=== PATIENT | male | born 1945 | race Caucasian/White ===

== ENCOUNTER 2017-02-08 15:45 | Inpatient (IN) | payer MEDICARE, OTHER ==
[~2017-02-08] VITALS: Ht 188 cm; Wt 99.5 kg
[~2017-02-08 15:45] MED LIST: ASPI81TA3 PO; ATOR40TA68 PO; CLOP75TA27 PO; GABA300C16 PO; GABAPENTIN 400 MG CAP PO SCH; LEVO150T67 PO; LISI20TA11 PO; MECL12.574 PO; MTF1000T PO; NITR0.4T6 SL; OMEP20CA16 PO; TRAZ50TA18 PO
[2017-02-08] MEDS ORDERED: SOD CHLORIDE 0.9% 1,000 ML IV STA (16:30)
[2017-02-08] MEDS ORDERED: ENALAPRILAT 1.25 MG INJ IV ONE (16:30)
[2017-02-08 16:45] VITALS: TEMP 98.6
[2017-02-08] MEDS ORDERED: LANT3I SC (16:58)
[2017-02-08] MEDS ORDERED: METF500T4 PO (16:58)
[2017-02-08] MEDS ORDERED: AMLO-147 PO ×2 (17:01→21:27)
--- NOTE | 2017-02-08 17:13 | ERD ---
ER Documentation Chief Complaint Date/Time DATE: 02/08/17 TIME: 17:11 Chief Complaint "I GOT WEAK AND FELL EARLIER TODAY, LL BACK PAIN" -CP, -KO, - SOB HPI 72-year-old man brought in by EMS for complaints of low back pain and syncopal episode which occurred this morning. Son found him in his room on the floor, patient states he has been feeling weak for 4-5 days and son confirms this. He denies chest pain or shortness of breath, no abdominal pain, no fevers or chills , no vomiting or diarrhea. ROS All systems reviewed and are negative except as per history of present illness. Medications Home Meds Reported Medications Amlodipine Besylate* (Amlodipine Besylate*) 10 Mg Tablet, 10 MG PO DAILY, #30 TAB 02/08/17 Insulin Glargine* (Lantus*) 100 Unit/Ml Soln, 44 UNIT SC QHS, #1 VIAL 02/08/17 Metformin Hcl* (Metformin Hcl*) 500 Mg Tablet, 1000 MG PO WITH BREAKFAST DINNE, #60 TAB 02/08/17 Nitroglycerin* (Nitroglycerin* SL) 0.4 Mg Tab.subl, 0.4 MG SL Q5MIN Y for CHEST PAIN, BOTTLE 09/09/16 Omeprazole* (Omeprazole*) 20 Mg Capsule.dr, 40 MG PO AC BREAKFAST, #30 CAP 09/09/16 Levothyroxine Sodium* (Levothyroxine Sodium*) 150 Mcg Tablet, 150 MCG PO BEFORE BREAKFAST, #30 TAB 09/09/16 Gabapentin* (Gabapentin*) 300 Mg Capsule, 600 MG PO TID, #270 CAP 09/09/16 Clopidogrel Bisulfate (Clopidogrel) 75 Mg Tablet, 75 MG PO DAILY, #30 TAB 09/09/16 Atorvastatin* (Atorvastatin*) 40 Mg Tablet, 40 MG PO QHS, #30 TAB 09/09/16 Aspirin* (Aspirin* Chew) 81 Mg Tab.chew, 81 MG PO DAILY, TAB.CHEW 09/09/16 Discontinued Reported Medications Trazodone Hcl* (Trazodone Hcl*) 50 Mg Tablet, 50 MG PO QHS, #30 TAB 09/09/16 Metformin* (Glucophage*) 1,000 Mg Tablet, 1000 MG PO BID, #60 TAB 09/09/16 Lisinopril* (Lisinopril*) 20 Mg Tablet, 20 MG PO DAILY, #30 TAB 09/09/16 Discontinued Scripts Meclizine Hcl* (Antivert*) 12.5 Mg Tab, 25 MG PO Q6H Y for DIZZINESS, #20 TAB Prov:KT LOPES MD 09/09/16 Allergies Allergies: Coded Allergies: Sulfa (Sulfonamide Antibiotics) (Verified Allergy, Unknown, 02/08/17) PMhx/Soc Coronary artery disease, hypertension, diabetes mellitus, laminectomy, hypothyroidism, BPH History of Surgery: Yes (R TKR, Bilateral foot sx, back sx) Anesthesia Reaction: No Hx Neurological Disorder: No Hx Respiratory Disorders: No Hx Cardiac Disorders: Yes (HTN, HDL, STENT PLACEMENT, UT ) Hx Psychiatric Problems: No Hx Miscellaneous Medical Probl: Yes (DM) Hx Alcohol Use: No Hx Substance Use: No Hx Tobacco Use: No Smoking Status: Never smoker FmHx Family History: No diabetes Physical Exam Vitals Vital Signs Date Time Temp Pulse Resp B/P Pulse Ox O2 Delivery O2 Flow Rate FiO2 02/08/17 19:05 84 16 164/94 98 Room Air 02/08/17 17:06 Nasal Cannula 02/08/17 16:45 98.6 103 20 163/95 95 Room Air 02/08/17 15:55 98.4 100 18 112/60 96 Physical Exam GENERAL: Well-developed, appears dehydrated, afebrile HEENT: Dry mucous membranes, pink conjunctiva, no cervical spine tenderness or step-off deformities, no goiter, no jaundice or icterus, extraocular movements intact without pain. No submandibular induration, and no pharyngeal erythema NEURO: Alert and oriented 2, appears confused, pupils equal round reactive to light, no focal deficits or facial asymmetry. CARDIAC: Tachycardic and regular, no murmurs rubs or gallops LUNGS: Clear bilaterally no wheezing crackles or stridor ABDOMEN: Soft nontender, no guarding, no rigidity, no rebound, no psoas sign no obturator sign. Normoactive bowel sounds SKIN: Warm and dry to touch, no abrasions, contusions, or hematomas, no lacerations, no ecchymosis, no target lesions, and without ulcers EXTREMITIES: No clubbing cyanosis or edema, calves are bilaterally symmetrical, no Homans sign, no popliteal cord sign. Distal pulses equal and bilateral PSYCH: Normal affect without agitation or irritability Result Diagram: 02/08/17 1658 02/08/17 1658 Results 24 hrs Laboratory Tests Test 02/08/17 16:58 02/08/17 18:39 White Blood Count 15.310^3/ul Red Blood Count 4.3810^6/ul Hemoglobin 13.1g/dl Hematocrit 39.6% Mean Corpuscular Volume 90.4fl Mean Corpuscular Hemoglobin 29.9pg Mean Corpuscular Hemoglobin Concent 33.1g/dl Red Cell Distribution Width 13.2% Platelet Count 61158^3/UL Mean Platelet Volume 10.6fl Neutrophils % 76.5% Lymphocytes % 12.9% Monocytes % 9.4% Eosinophils % 0.3% Basophils % 0.3% Nucleated Red Blood Cells % 0.0/100WBC Neutrophils # 11.710^3/ul Lymphocytes # 2.010^3/ul Monocytes # 1.410^3/ul Eosinophils # 0.010^3/ul Basophils # 0.010^3/ul Nucleated Red Blood Cells # 0.010^3/ul Sodium Level 135mmol/L Potassium Level 4.3mmol/L Chloride Level 98mmol/L Carbon Dioxide Level 23mmol/L Anion Gap 18 Blood Urea Nitrogen 12mg/dl Creatinine 0.86mg/dl Glucose Level 189mg/dl Calcium Level 9.3mg/dl Total Bilirubin 0.4mg/dl Direct Bilirubin 0.00mg/dl Indirect Bilirubin 0.4mg/dl Aspartate Amino Transf (AST/SGOT) 61IU/L Alanine Aminotransferase (ALT/SGPT) 77IU/L Alkaline Phosphatase 47IU/L Troponin I 0.036ng/ml Total Protein 7.0g/dl Albumin 4.1g/dl Globulin 2.90g/dl Albumin/Globulin Ratio 1.41 Lipase 19U/L Urine Color LT. YELLOW Urine Clarity CLEAR Urine pH 6.5 Urine Specific [place] <=1.005 Urine Ketones NEGATIVE Urine Nitrite NEGATIVE Urine Bilirubin NEGATIVE Urine Urobilinogen 0.2 E.U./dL Urine Leukocyte Esterase NEGATIVE Urine Hemoglobin NEGATIVE Urine Glucose NEGATIVE% Urine Total Protein NEGATIVE Current Medications Medications (Trade) Dose Ordered Sig/Ozzie Route PRN Reason Start Time Stop Time Status Last Admin Dose Admin Enalaprilat 1.25 mg 1.25 mg ONCE ONCE IV 02/08/17 16:30 02/08/17 16:31 DC 02/08/17 16:55 Sodium Chloride 1,000 ml @ 1,000 mls/hr Q1H STAT IV 02/08/17 16:30 02/08/17 17:29 DC 02/08/17 16:55 Sodium Chloride (NS) 1,000 ml @ 1,000 mls/hr Q1H ONCE IV 02/08/17 19:00 02/08/17 19:59 02/08/17 19:11 Procedures/MDM IV line was established patient was placed on machine stripper rhythm strip revealed a sinus tachycardia at 120 bpm with upright P and T waves. Patient was afebrile. EKG performed, read by me revealed a sinus tachycardia at 116 bpm, normal axis, narrow QRS complex, no concerning ST elevations or depressions, there are poor R -wave progressions in precordial leads consistent with previous UT. For dehydration I administered 2 L normal saline intravenously and patient was hypertensive so administered enalapril 1.25 mg IV with good response. X-ray Pelvis 1V Interpreted by me: Bones: No fracture Joints: No dislocation Foreign body: None Chest X-ray 1V Interpreted by me: Soft Tissue: No acute abnormalities Bones: No acute abnormalities Mediastinum/Cardiac Silhouette/Lungs: No acute abnormalities CT scan of the brain revealed white matter disease, no acute bleed mass or shift. CBC reveals a leukocytosis of 15, electrolytes were unremarkable, liver function tests are normal, troponin was negative. Urine analysis is negative for infection. Patient admitted under Dr. Still to telemetry setting for continued medical management and possible cardiology consultation. Departure Diagnosis: Primary Impression: Dehydration Additional Impressions: Dizziness Syncope Syncope type: unspecified Qualified Code: R55 - Syncope, unspecified syncope type Condition: JIMMY Iverson MD February 08, 2017 17:13
[2017-02-08 17:34] LABS: ADD SCAN DIFF NO
[2017-02-08 17:36] LABS: BASOPHILS % 0.3 % (0.0-2.0); EOSINOPHILS % 0.3 % (0.0-7.0); HEMATOCRIT 39.6 % (42.0-52.0); HEMOGLOBIN 13.1 g/dl (14.0-18.0); LYMPHOCYTES % 12.9 % (15.0-51.0); MEAN CORPUSCULAR HEMOGLOBIN 29.9 pg (29.0-33.0); MEAN CORPUSCULAR HGB CONC 33.1 g/dl (32.0-37.0); MEAN CORPUSCULAR VOLUME 90.4 fl (82.0-101.0); MEAN PLATELET VOLUME 10.6 fl (7.4-10.4); MONOCYTE # 1.4 10^3/ul (0.3-0.9); MONOCYTES % 9.4 % (0.0-11.0); NEUTROPHIL # 11.7 10^3/ul (1.6-7.5); NEUTROPHILS % 76.5 % (39.0-77.0); PLATELET COUNT 265 10^3/UL (140-415); RED BLOOD COUNT 4.38 10^6/ul (4.70-6.10); RED CELL DISTRIBUTION WIDTH 13.2 % (11.5-14.5); WHITE BLOOD COUNT 15.3 10^3/ul (4.8-10.8)
[2017-02-08 17:51] LABS: ALBUMIN 4.1 g/dl (3.3-4.9)
--- NOTE | 2017-02-08 17:51 | RADRPT ---
PROCEDURE: XR Chest. CLINICAL INDICATION: Chest pain TECHNIQUE: AP view of the chest was performed. COMPARISON: September 09, 2016 FINDINGS: The cardiomediastinal silhouette is within normal limits. The lungs are clear. No signs of pleural f luid or pneumothorax are seen. The osseous structures and soft tissues are unremarkable. IMPRESSION: No evidence for active cardiopulmonary disease. No interval change. RPTAT: QQ .Amalia Williamson MD, MD Date Time Electronically viewed and signed by .Amalia Williamson MD, on 02/08/2017 17:51 .F/
[2017-02-08 17:52] LABS: POTASSIUM 4.3 mmol/L (3.5-5.1)
[2017-02-08 17:54] LABS: ALBUMIN/GLOBULIN RATIO 1.41; BILIRUBIN,INDIRECT 0.4 mg/dl (0-1.1); BILIRUBIN,TOTAL 0.4 mg/dl (0.2-1.3); CALCIUM 9.3 mg/dl (8.4-10.2); CREATININE 0.86 mg/dl (0.61-1.24)
--- NOTE | 2017-02-08 17:59 | RADRPT ---
PROCEDURE: CT Brain without contrast. CLINICAL INDICATION: r/o bleed TECHNIQUE: A CT of the brain was performed on a multidetector CT scanner utilizing axial imaging f rom the skull base through the vertex without IV contrast. Multiplanar reformatted images were made . Images were reviewed on a PACS workstation. The CTDIvol is 44 mGy and the DLP is 720 mGycm. COMPARISON: Head CT November 24, 2015 FINDINGS: There is moderate age appropriate diffuse cerebral volume loss with sulcal and ventricular dilatatio n. No discrete extra-axial fluid collection or masses present. The ventricles are in the midline a nd of normal contour and configuration. There is periventricular white matter disease in both cereb ral hemispheres. No associated mass effect is present. There is no intracranial hemorrhage. There is normal aeration of the visualized paranasal sinuses. IMPRESSION: Atrophy. White matter disease compatible with chronic small vessel ischemia. No intracranial hemor rhage or mass. .Kem Dueñas MD, MD Date Time Electronically viewed and signed by .Kem Dueñas MD, on 02/08/2017 17:58 .A/
[2017-02-08 18:05] LABS: TROPONIN-I 0.036 ng/ml (0.00-0.12)
--- NOTE | 2017-02-08 18:18 | RADRPT ---
PROCEDURE: X-ray pelvis CLINICAL INDICATION: Fall TECHNIQUE: Single AP view of the pelvis COMPARISON: None FINDINGS: No acute fracture or dislocation. Soft tissues unremarkable. IMPRESSION: No acute fracture. RPTAT: [facility] Physician Arie Date Time Electronically viewed and signed by Enmanuel [place] Physician on 02/08/2017 18:17 RS/
[2017-02-08] MEDS ORDERED: SOD CHLORIDE 0.9% 1,000 ML IV ONE (19:00)
[2017-02-08 19:17] LABS: ADD UMIC NO; URINE BILIRUBIN (Dip) NEGATIVE (NEGATIVE); URINE BLOOD (Dip) NEGATIVE (NEGATIVE); URINE COLOR LT. YELLOW (YELLOW); URINE GLUCOSE (Dip) NEGATIVE (NEGATIVE); URINE KETONES (Dip) NEGATIVE (NEGATIVE); URINE LEUKOCYTE ESTERASE (Dip) NEGATIVE (NEGATIVE); URINE NITRITE (Dip) NEGATIVE (NEGATIVE); URINE TOTAL PROTEIN (Dip) NEGATIVE (NEGATIVE); URINE UROBILINOGEN (Dip) 0.2 E.U./dL (0.1-1.0)
[2017-02-08 20:38] VITALS: Ht 188 cm; Wt 99.5 kg
[2017-02-08 20:45] VITALS: PULSE 74
[2017-02-08] MEDS ORDERED: OMEP20CA16 PO (21:27)
[2017-02-08] MEDS ORDERED: CLOP75TA27 PO (21:27)
[2017-02-08] MEDS: GABAPENTIN 300 MG CAP PO SCH (22:52)
[2017-02-08] MEDS: SOD CHLORIDE 0.9% 1,000 ML IV SCH (22:52)
[2017-02-08] MEDS ORDERED: DEXTROSE 50% 50 ML SYRINGE IV PRN ×2 (23:00)
[2017-02-08] MEDS ORDERED: GLUCOSE GEL 15 GRAM TUBE PO PRN ×2 (23:00)
[2017-02-08] MEDS ORDERED: GLUCOSE GEL 15 GRAM TUBE BUCCAL PRN (23:00)
[2017-02-08] MEDS ORDERED: GLUCAGON 1 MG INJ IM PRN (23:00)
[2017-02-08 23:05] VITALS: BP 163/85; PULSE 85; RESP 16
--- NOTE | 2017-02-08 23:06 | HP ---
DATE OF ADMISSION: 02/08/2017 REASON FOR ADMISSION: 1. Syncope with history of syncopal episodes and dizziness. 2. Mechanical fall with left hip pain. 3. Dehydration. 4. Vertigo/chronic condition. 5. Diabetes. 6. Coronary artery disease, status post stenting. 7. Generalized weakness. CHIEF COMPLAINT: Status post mechanical fall in the shower. HISTORY OF PRESENT ILLNESS: The patient is a very pleasant 72-year-old gentleman with history of hypertension: hyperlipidemia; diabetes; coronary artery disease, status post stenting; vertigo, presents to the ED with complaints of mechanical fall and left hip pain. The patient stated that he has been having poor p.o. intake over the past 48 hours, started with dinner 24 hours prior. The patient felt anorexic, did not want to eat. The patient went to sleep, did not feel hungry. For the daytime, the patient only had 1 egg with a salad. The patient then took a shower, felt lightheaded and started to get dizzy and fell and hit his bottom on the left side. The patient was then brought to the ED for further evaluation and treatment. The patient was seen and evaluated in ED. Orthostatics were not done. The patient was given IV fluid 1 L. The patient was admitted to the hospital for syncopal episode. Radiologic examinations in the ED demonstrate no evidence of fracture by pelvis x-ray, by chest x-ray, and brain CT was negative. ALLERGIES: SULFA CAUSES A RASH. CURRENT MEDICATIONS: 1. Amlodipine 10 mg p.o. daily. 2. Insulin subcutaneously 44 units Lantus at bedtime. 3. Metformin 1000 mg p.o. b.i.d. 4. Nitroglycerin 0.4 mg sublingual every 5 minutes as needed for chest pain. 5. Omeprazole 20 mg p.o. daily. 6. Levothyroxine 150 mcg p.o. daily. 7. Gabapentin 300 mg p.o. t.i.d. 8. Plavix 75 mg p.o. daily. 9. Atorvastatin 40 mg p.o. at bedtime. 10. Aspirin 81 mg p.o. daily. 11. Neurontin 600 mg p.o. t.i.d. PAST MEDICAL HISTORY: Significant for: 1. Diabetes, insulin dependent. 2. Hypertension. 3. Coronary artery disease, status post stenting. 4. Hyperlipidemia. 5. History of vertigo. 6. Hypothyroidism. PAST HOSPITALIZATIONS: Multiple hospitalizations for: 1. Syncope. 2. Vertigo. 3. Chest pain with coronary artery disease. PAST SURGICAL HISTORY: 1. Coronary artery disease, status post stenting. 2. 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 3. History of hemorrhoids and anal fissures. 4. Surgery of the thyroglossal duct. 5. Lesion removed from the right foot. 6. Left eye pterygium removed. 7. Left foot surgery. 8. Right total knee arthroplasty with repeat surgery 1 year later. 9. Low back pain, now with surgery. FAMILY HISTORY: Reviewed, noncontributory. SOCIAL HISTORY: The patient lives with his son. Denies any current drugs, alcohol, tobacco. Pretty much independent without using cane or walker. PHYSICAL EXAMINATION ON THE HOSPITAL FLOOR: VITAL SIGNS: Temperature is 98.6, blood pressure is 163/93, pulse of 103, saturating 95% on room air, the patient's respiratory rate 20. GENERAL: The patient was awake, alert and oriented x4. HEENT: Head normocephalic, atraumatic. Sclerae nonicteric. Oropharynx clear. Dry mucous membranes. NECK: No lymphadenopathy, no thyromegaly. CARDIOVASCULAR: Regular rate and rhythm. Normal S1, S2. LUNGS: Clear to auscultation bilaterally. ABDOMEN: Soft, nontender, nondistended. Normoactive bowel sounds. No right upper quadrant, no right lower quadrant pain. EXTREMITIES: Right knee has incision that is clean, dry and intact and well healed. Bilateral lower extremities, no evidence of edema, clubbing or cyanosis. Left gluteal hip pain, has tenderness to palpation. CURRENT X-RAYS: 1. Pelvis x-ray on 02/08/2017 shows no acute fracture. 2. A 02/08/2017 chest x-ray shows no acute cardiopulmonary disease. 3. Brain CT on 02/08/2017 shows no acute intracranial abnormalities. EKG shows sinus tachycardia with LVH voltage criteria. There is no evidence of ST segment abnormalities. There is 1 lead with T-wave inversions in lead III. Otherwise, there are old Q's in the anterior leads. ASSESSMENT AND PLAN: The patient is a 72-year-old gentleman with a significant past medical history for syncopal episodes; dizziness; diabetes, insulin dependent; hypertension; hyperlipidemia; obesity and coronary artery disease, status post stenting, presents from home with episode of mechanical fall in the shower with trauma to the left gluteal area, being admitted for another syncopal episode. 1. Syncope, likely associated with a prerenal etiology of dehydration. The patient did have an echocardiogram in 10/2016 that shows normal ejection fraction. The patient's troponin is negative. EKG shows old Q-waves. The patient did not have any history of chest pain. The patient did have carotid ultrasounds done at the time of 10/2016, did not show any significant lesions. MRI at that time did not show any acute abnormalities. The patient will be monitored. Will check for orthostatic hypotension, continue telemetry monitoring. 2. Mechanical fall with left hip pain. The patient will be provided with pain medication, rehab, PT/OT evaluation. Consider getting CT scan of the pelvis if the patient complains of severe pain. X-ray of the pelvis did not show any evidence of dislocation or fractures noted. 3. Dehydration. Continue IV fluid hydration. 4. Vertigo. The patient states that he has a chronic condition of vertigo. No medications actually help him with the symptoms. The patient is able to cope with these symptoms. 5. Diabetes. Continue insulin sliding scale. Provide cardiac, diabetic diet. 6. Coronary artery disease, status post stenting. Nitroglycerin as needed, coronary artery medications. 7. Generalized weakness secondary to dehydration. Provide PT/OT evaluation. 8. Code status. The patient is FULL CODE. Dictated By: SHARI MO/CAROL Conf#: [id number] DID#: [id number] GURJIT
[2017-02-08 23:59] VITALS: BP 180/78; RESP 16
[2017-02-09] VITALS (12 sets, daily range): BP systolic 143–192; BP diastolic 73–97; PULSE 67–114; RESP 16–20
[2017-02-09] MEDS: hydrALAzine 20 MG INJ IV PRN ×3 (01:02→20:21)
[2017-02-09] MEDS: ACCU-CHEK XX SCH (01:07)
[2017-02-09] MEDS ORDERED: ACCU-CHEK XX SCH (02:00)
[2017-02-09 06:41] LABS: ADD SCAN DIFF NO
[2017-02-09 06:42] LABS: BASOPHILS % 0.4 % (0.0-2.0); EOSINOPHILS # 0.2 10^3/ul (0.0-0.5); EOSINOPHILS % 1.5 % (0.0-7.0); HEMATOCRIT 38.3 % (42.0-52.0); HEMOGLOBIN 12.8 g/dl (14.0-18.0); LYMPHOCYTES # 2.2 10^3/ul (0.8-2.9); LYMPHOCYTES % 20.9 % (15.0-51.0); MEAN CORPUSCULAR HEMOGLOBIN 30.2 pg (29.0-33.0); MEAN CORPUSCULAR HGB CONC 33.4 g/dl (32.0-37.0); MEAN CORPUSCULAR VOLUME 90.3 fl (82.0-101.0); MEAN PLATELET VOLUME 10.7 fl (7.4-10.4); MONOCYTE # 1.2 10^3/ul (0.3-0.9); MONOCYTES % 11.3 % (0.0-11.0); NEUTROPHIL # 6.9 10^3/ul (1.6-7.5); NEUTROPHILS % 65.4 % (39.0-77.0); PLATELET COUNT 250 10^3/UL (140-415); RED BLOOD COUNT 4.24 10^6/ul (4.70-6.10); RED CELL DISTRIBUTION WIDTH 13.3 % (11.5-14.5); WHITE BLOOD COUNT 10.5 10^3/ul (4.8-10.8)
[2017-02-09 07:04] LABS: ALBUMIN 3.9 g/dl (3.3-4.9); ALBUMIN/GLOBULIN RATIO 1.39; BILIRUBIN,INDIRECT 0.3 mg/dl (0-1.1); BILIRUBIN,TOTAL 0.3 mg/dl (0.2-1.3); CALCIUM 9.4 mg/dl (8.4-10.2); CREATININE 0.81 mg/dl (0.61-1.24); MAGNESIUM 1.6 mg/dl (1.7-2.5); PHOSPHORUS 3.7 mg/dl (2.5-4.9); POTASSIUM 4.1 mmol/L (3.5-5.1); TOTAL PROTEIN 6.7 g/dl (6.1-8.1)
[2017-02-09] MEDS: PANTOPRAZOLE (EC) 40 MG TAB PO SCH (07:05)
[2017-02-09] MEDS: LEVOTHYROXINE 150 MCG TAB PO SCH (07:05)
[2017-02-09] MEDS: GABAPENTIN 300 MG CAP PO SCH ×5 (07:12→20:36)
[2017-02-09] MEDS: metFORMIN 500 MG TAB PO SCH ×3 (08:05→17:26)
[2017-02-09] MEDS: INSULIN ASPART [NOVOLOG] 3 ML PEN SC SCH ×4 (08:08→20:25)
[2017-02-09] MEDS: CLOPIDOGREL 75 MG TAB PO SCH (08:23)
[2017-02-09] MEDS: ASPIRIN (EC) 81 MG TAB PO SCH (08:23)
[2017-02-09] MEDS: AMLODIPINE 10 MG TAB PO SCH (08:25)
[2017-02-09] MEDS: ACETAMINOPHEN 325 MG TAB PO PRN ×2 (10:08→21:28)
--- NOTE | 2017-02-09 11:54 | CONS ---
Date/Time of Note Date/Time of Note DATE: 02/09/17 TIME: 11:34 Assessment/Plan Assessment/Plan Chief Complaint/Hosp Course 1. syncope , I suspect that his BP dropped when he had the syncopal episode .Continue IV fluids . PT and monitor his BP including orthostatics . 2. h/o postural hypotension 3. IDDM , will order his lantus insulin 4. CAD , s/p stent placement . 5. HTN Problems: Consultation Date/Type/Reason Admit Date/Time February 08, 2017 at 18:38 Initial Consult Date 24 HR Interval Summary Free Text/Dictation He is awake and alert . We reviewed his history of having a syncopal episode and having some dizziness when stood up to go to the bathroom this morning . Exam/Review of Systems Vital Signs Vitals Vital Signs Date Time Temp Pulse Resp B/P Pulse Ox O2 Delivery O2 Flow Rate FiO2 02/09/17 08:36 80 02/09/17 07:20 97.9 17 192/88 95 02/09/17 04:00 Room Air Intake and Output 02/08/17 02/08/17 02/09/17 15:00 23:00 07:00 Intake Total 1000 ml 300 ml Output Total 2300 ml Balance 1000 ml -2000 ml Exam Constitutional: alert, oriented, well developed Respiratory: clear to auscultation, normal air movement Cardiovascular: regular rate and rhythm Gastrointestinal: soft Musculoskeletal: nl extremities to inspection Results Result Diagram: 02/09/17 0551 02/09/17 0557 Results 24 hrs Laboratory Tests Test 02/08/17 16:58 02/08/17 18:39 02/09/17 01:06 02/09/17 05:51 White Blood Count 15.3 H 10.5 # Red Blood Count 4.38 L 4.24 L Hemoglobin 13.1 L 12.8 L Hematocrit 39.6 L 38.3 L Mean Corpuscular Volume 90.4 90.3 Mean Corpuscular Hemoglobin 29.9 30.2 Mean Corpuscular Hemoglobin Concent 33.1 33.4 Red Cell Distribution Width 13.2 13.3 Platelet Count 265 250 Mean Platelet Volume 10.6 #H 10.7 H Neutrophils % 76.5 65.4 Lymphocytes % 12.9 L 20.9 Monocytes % 9.4 11.3 H Eosinophils % 0.3 1.5 Basophils % 0.3 0.4 Nucleated Red Blood Cells % 0.0 0.0 Neutrophils # 11.7 H 6.9 Lymphocytes # 2.0 2.2 Monocytes # 1.4 H 1.2 H Eosinophils # 0.0 0.2 Basophils # 0.0 0.0 Nucleated Red Blood Cells # 0.0 0.0 Sodium Level 135 Potassium Level 4.3 Chloride Level 98 Carbon Dioxide Level 23 Anion Gap 18 H Blood Urea Nitrogen 12 Creatinine 0.86 Glucose Level 189 Calcium Level 9.3 Total Bilirubin 0.4 Direct Bilirubin 0.00 Indirect Bilirubin 0.4 Aspartate Amino Transf (AST/SGOT) 61 H Alanine Aminotransferase (ALT/SGPT) 77 H Alkaline Phosphatase 47 Troponin I 0.036 0.030 Total Protein 7.0 Albumin 4.1 Globulin 2.90 Albumin/Globulin Ratio 1.41 Lipase 19 L Urine Color LT. YELLOW Urine Clarity CLEAR Urine pH 6.5 Urine Specific [place] <=1.005 L Urine Ketones NEGATIVE Urine Nitrite NEGATIVE Urine Bilirubin NEGATIVE Urine Urobilinogen 0.2 E.U./dL Urine Leukocyte Esterase NEGATIVE Urine Hemoglobin NEGATIVE Urine Glucose NEGATIVE Urine Total Protein NEGATIVE Bedside Glucose 207 Test 02/09/17 05:57 02/09/17 07:55 02/09/17 11:31 Sodium Level 136 Potassium Level 4.1 Chloride Level 105 Carbon Dioxide Level 24 Anion Gap 11 # Blood Urea Nitrogen 12 Creatinine 0.81 Glucose Level 239 H Calcium Level 9.4 Phosphorus Level 3.7 Magnesium Level 1.6 L Total Bilirubin 0.3 Direct Bilirubin 0.00 Indirect Bilirubin 0.3 Aspartate Amino Transf (AST/SGOT) 50 H Alanine Aminotransferase (ALT/SGPT) 64 Alkaline Phosphatase 41 L B-Type Natriuretic Peptide 207 H Total Protein 6.7 Albumin 3.9 Globulin 2.80 Albumin/Globulin Ratio 1.39 Thyroid Stimulating Hormone (TSH) 1.590 Bedside Glucose 199 200 Medications Medications Current Medications Amlodipine Besylate (Norvasc) 10 mg DAILY PO Last administered on 02/09/17 08: 25; Admin Dose 10 MG; Start 02/09/17 at 09:00 Aspirin (Halfprin) 81 mg DAILY PO Last administered on 02/09/17 08:23; Admin Dose 81 MG; Start 02/09/17 at 09:00 Atorvastatin Calcium (Lipitor) 40 mg HS PO ; Start 02/09/17 at 21:00 Clopidogrel Bisulfate (plaVIX) 75 mg DAILY PO Last administered on 02/09/17 08 :23; Admin Dose 75 MG; Start 02/09/17 at 09:00 Insulin Glargine (Lantus) 44 unit DAILY@20 SC ; Start 02/09/17 at 20:00 Levothyroxine Sodium 150 mcg 150 mcg DAILY@06 PO Last administered on 07:05; Admin Dose 150 MCG; Start 02/09/17 at 06:00 Sodium Chloride (NS) 1,000 ml @ 75 mls/hr [id number] IV Last administered on 02/08 22:52; Admin Dose 75 MLS/HR; Start 02/08/17 at 22:30 Diagnostic Test (Pha) (Accu-Chek) 1 ea 02 XX Last administered on 02/09/17 01: 07; Admin Dose 1 EA; Start 02/09/17 at 02:00 Gabapentin (Neurontin) 900 mg TID PO Last administered on 02/09/17 07:12; Admin Dose 900 MG; Start 02/08/17 at 22:30 Miscellaneous Information 1 ea NOTE XX ; Start 02/08/17 at 23:00 Glucose (Glutose) 15 gm Q15M PRN PO DECREASED GLUCOSE; Start 02/08/17 at 23:00 Glucose (Glutose) 22.5 gm Q15M PRN PO DECREASED GLUCOSE; Start 02/08/17 at 23: 00 Dextrose (D50w Syringe) 25 ml Q15M PRN IV DECREASED GLUCOSE; Start 02/08/17 at 23:00 Dextrose (D50w Syringe) 50 ml Q15M PRN IV DECREASED GLUCOSE; Start 02/08/17 at 23:00 Glucagon (Glucagen) 1 mg Q15M PRN IM DECREASED GLUCOSE; Start 02/08/17 at 23:00 Glucose (Glutose) 15 gm Q15M PRN BUCCAL DECREASED GLUCOSE; Start 02/08/17 at 23 :00 Hydralazine HCl (Apresoline) 10 mg Q4H PRN IV Hypertension Last administered on 02/09/17 08:28; Admin Dose 10 MG; Start 02/09/17 at 01:00 Acetaminophen (Tylenol Tab) 650 mg Q6H PRN PO PAIN AND OR ELEVATED TEMP Last administered on 02/09/17 10:08; Admin Dose 650 MG; Start 02/09/17 at 10:00 WILMA GARIBAY MD February 09, 2017 11:49
[2017-02-09] MEDS ORDERED: NITROGLYCERIN (SL) 0.4 MG TAB SL PRN (12:00)
[2017-02-09] MEDS ORDERED: GLUCAGON 1 MG INJ IM PRN (12:30)
[2017-02-09] MEDS ORDERED: GLUCOSE GEL 15 GRAM TUBE PO PRN ×2 (12:30)
[2017-02-09] MEDS ORDERED: DEXTROSE 50% 50 ML SYRINGE IV PRN ×2 (12:30)
[2017-02-09] MEDS ORDERED: GLUCOSE GEL 15 GRAM TUBE BUCCAL PRN (12:30)
[2017-02-09] MEDS: SOD CHLORIDE 0.9% 1,000 ML IV SCH (15:32)
[2017-02-09] MEDS ORDERED: MAGNESIUM SULFATE 2 GM/50 ML 50 ML IVPB ONE (18:30)
[2017-02-09] MEDS: INSULIN GLARGINE [LANtus] 3 ML PEN SC SCH ×2 (20:19→20:36)
[2017-02-09] MEDS: ATORVASTATIN 40 MG TAB PO SCH ×2 (20:23→20:34)
[2017-02-10] VITALS (13 sets, daily range): BP systolic 126–178; BP diastolic 70–86; PULSE 68–98; RESP 18–20
[2017-02-10] MEDS: SOD CHLORIDE 0.9% 1,000 ML IV SCH ×2 (01:10→07:37)
[2017-02-10] MEDS: ACCU-CHEK XX SCH (02:00)
[2017-02-10] MEDS: LEVOTHYROXINE 150 MCG TAB PO SCH ×2 (06:40→06:44)
[2017-02-10] MEDS: PANTOPRAZOLE (EC) 40 MG TAB PO SCH ×2 (06:43→06:44)
[2017-02-10] MEDS: ACETAMINOPHEN 325 MG TAB PO PRN ×2 (06:53→17:26)
[2017-02-10] MEDS: GABAPENTIN 300 MG CAP PO SCH ×7 (07:35→20:39)
[2017-02-10] MEDS: metFORMIN 500 MG TAB PO SCH ×4 (08:00→18:05)
[2017-02-10] MEDS: AMLODIPINE 10 MG TAB PO SCH (08:06)
[2017-02-10] MEDS: ASPIRIN (EC) 81 MG TAB PO SCH (08:07)
[2017-02-10] MEDS: INSULIN ASPART [NOVOLOG] 3 ML PEN SC SCH ×4 (08:13→20:49)
[2017-02-10] MEDS ORDERED: ASPIRIN 81 MG TAB PO SCH (09:00)
[2017-02-10] MEDS: CLOPIDOGREL 75 MG TAB PO SCH (09:00)
[2017-02-10] MEDS ORDERED: AMLODIPINE 10 MG TAB PO SCH (09:00)
[2017-02-10] MEDS ORDERED: CLOPIDOGREL 75 MG TAB PO SCH (09:00)
--- NOTE | 2017-02-10 10:20 | PN ---
Date/Time of Note Date/Time of Note DATE: 02/10/17 TIME: 10:15 Assessment/Plan VTE Prophylaxis VTE Prophylaxis Intervention: ambulation Lines/Catheters IV C[facility]ter Type (from [facility] Peripheral IV Urinary Cath still in place: No Assessment/Plan Chief Complaint/Hosp Course 1. syncope , I suspect that his BP dropped when he had the syncopal episode . He does have a history of postural hypotension and I have seen him in my office when his blood pressure has been low and he was symptomatic.. Discontinued IV fluids . PT and monitor his BP including orthostatics . I will order a cardiology consultation and an echocardiogram today. 2. h/o postural hypotension 3. IDDM , will order his lantus insulin 4. CAD , s/p stent placement . 5. HTN Problems: Subjective 24 Hr Interval Summary Free Text/Dictation He has no new complaints . He was up walking with physical therapy. I do not see any orthostatic blood pressures on the chart. There was one blood pressure taken this morning when the patient was lying down. He denies any chest pain or shortness of breath. Constitutional: improved, no complaints Respiratory: no complaints Cardiovascular: no complaints Gastrointestinal: no complaints Genitourinary: no complaints Neurologic: dizziness Exam/Review of Systems Vital Signs Vitals Vital Signs Date Time Temp Pulse Resp B/P Pulse Ox O2 Delivery O2 Flow Rate FiO2 02/10/17 08:06 73 02/10/17 07:22 98.4 18 171/82 96 02/09/17 11:40 Room Air Intake and Output 02/09/17 02/09/17 02/10/17 15:00 23:00 07:00 Intake Total 1400 ml 550 ml Output Total 925 ml 1200 ml 1600 ml Balance -925 ml 200 ml -1050 ml Exam Constitutional: alert, oriented, well developed ENMT: nl external ears & nose, nl lips & teeth, nl nasal mucosa & septum Respiratory: clear to auscultation, normal air movement Cardiovascular: nl pulses, regular rate and rhythm Gastrointestinal: nl liver, spleen, non-tender, soft Musculoskeletal: nl extremities to inspection, nl gait and stance Results Result Diagram: 02/09/17 0551 02/09/17 0557 Results 24 hrs Laboratory Tests Test 02/09/17 11:31 02/09/17 17:21 02/09/17 20:17 02/10/17 05:30 Bedside Glucose 200 227 H 171 Magnesium Level 1.9 Test 02/10/17 07:46 Bedside Glucose 210 Medications Medications Current Medications Amlodipine Besylate (Norvasc) 10 mg DAILY PO Last administered on 02/10/17 08: 06; Admin Dose 10 MG; Start 02/09/17 at 09:00 Aspirin (Halfprin) 81 mg DAILY PO Last administered on 02/10/17 08:07; Admin Dose 81 MG; Start 02/09/17 at 09:00 Atorvastatin Calcium (Lipitor) 40 mg HS PO Last administered on 02/09/17 20:23 ; Admin Dose 40 MG; Start 02/09/17 at 21:00 Clopidogrel Bisulfate (plaVIX) 75 mg DAILY PO Last administered on 02/09/17 08 :23; Admin Dose 75 MG; Start 02/09/17 at 09:00 Insulin Glargine (Lantus) 44 unit DAILY@20 SC Last administered on 02/09/17 20 :19; Admin Dose 44 UNIT; Start 02/09/17 at 20:00 Levothyroxine Sodium 150 mcg 150 mcg DAILY@06 PO Last administered on 06:40; Admin Dose 150 MCG; Start 02/09/17 at 06:00 Sodium Chloride (NS) 1,000 ml @ 75 mls/hr [id number] IV Last administered on 02/10 07:37; Admin Dose 75 MLS/HR; Start 02/08/17 at 22:30 Diagnostic Test (Pha) (Accu-Chek) 1 ea 02 XX Last administered on 02/09/17 01: 07; Admin Dose 1 EA; Start 02/09/17 at 02:00 Gabapentin (Neurontin) 900 mg TID PO Last administered on 02/10/17 07:35; Admin Dose 900 MG; Start 02/08/17 at 22:30 Miscellaneous Information 1 ea NOTE XX ; Start 02/08/17 at 23:00 Glucose (Glutose) 15 gm Q15M PRN PO DECREASED GLUCOSE; Start 02/08/17 at 23:00 Glucose (Glutose) 22.5 gm Q15M PRN PO DECREASED GLUCOSE; Start 02/08/17 at 23: 00 Dextrose (D50w Syringe) 25 ml Q15M PRN IV DECREASED GLUCOSE; Start 02/08/17 at 23:00 Dextrose (D50w Syringe) 50 ml Q15M PRN IV DECREASED GLUCOSE; Start 02/08/17 at 23:00 Glucagon (Glucagen) 1 mg Q15M PRN IM DECREASED GLUCOSE; Start 02/08/17 at 23:00 Glucose (Glutose) 15 gm Q15M PRN BUCCAL DECREASED GLUCOSE; Start 02/08/17 at 23 :00 Hydralazine HCl (Apresoline) 10 mg Q4H PRN IV Hypertension Last administered on 02/09/17 20:21; Admin Dose 10 MG; Start 02/09/17 at 01:00 Acetaminophen (Tylenol Tab) 650 mg Q6H PRN PO PAIN AND OR ELEVATED TEMP Last administered on 02/10/17 06:53; Admin Dose 650 MG; Start 02/09/17 at 10:00 Amlodipine Besylate (Norvasc) 10 mg DAILY PO ; Start 02/10/17 at 09:00 Aspirin (Aspirin) 81 mg DAILY PO ; Start 02/10/17 at 09:00 Atorvastatin Calcium (Lipitor) 40 mg QHS PO ; Start 02/09/17 at 21:00 Clopidogrel Bisulfate (plaVIX) 75 mg DAILY PO Last administered on 02/10/17 08 :07; Admin Dose 75 MG; Start 02/10/17 at 09:00 Gabapentin (Neurontin) 900 mg TID PO Last administered on 02/09/17 13:07; Admin Dose 900 MG; Start 02/09/17 at 13:00 Insulin Glargine (Lantus) 44 unit QHS SC ; Start 02/09/17 at 21:00 Pantoprazole (Protonix Tab) 40 mg DAILY@06 PO Last administered on 02/10/17 06 :43; Admin Dose 40 MG; Start 02/10/17 at 06:00 Nitroglycerin (Nitroglycerin (Sl Tab) 0.4 Mg) 1 tab Q5M PRN SL ANGINA; Start at 12:00 Miscellaneous Information 1 ea NOTE XX ; Start 02/09/17 at 12:30 Glucose (Glutose) 15 gm Q15M PRN PO DECREASED GLUCOSE; Start 02/09/17 at 12:30 Glucose (Glutose) 22.5 gm Q15M PRN PO DECREASED GLUCOSE; Start 02/09/17 at 12: 30 Dextrose (D50w Syringe) 25 ml Q15M PRN IV DECREASED GLUCOSE; Start 02/09/17 at 12:30 Dextrose (D50w Syringe) 50 ml Q15M PRN IV DECREASED GLUCOSE; Start 02/09/17 at 12:30 Glucagon (Glucagen) 1 mg Q15M PRN IM DECREASED GLUCOSE; Start 02/09/17 at 12:30 Glucose (Glutose) 15 gm Q15M PRN BUCCAL DECREASED GLUCOSE; Start 02/09/17 at 12 :30 WILMA GARIBAY MD February 10, 2017 10:20
--- NOTE | 2017-02-10 15:13 | RADRPT ---
Echocardiogram Report Patient Name: CAROLINE WHITE Gender: Male Date: 1945 Study Date: 10-Feb-2017 Elementary Educator: [facility] Location: 5536 Ref. Physician: WILMA GARIBAY Quality: Adequate Procedures: Transthoracic echocardiogram with complete 2D, M-Mode, and doppler examination. Indications: Syncope. 2D/M Mode Doppler Measurement Value Normal Ranges Measurement Value Normal Ranges LVIDd 2D 4.0 3.5 - 5.6 cm AV Peak Michael 1.1 m/sec LVIDs 2D 2.4 2.1 - 4.1 cm AV Peak PG 4.8 mmHg LVPWd 2D 1.3 0.6 - 1.1 cm LVOT Peak Michael 1.0 m/sec IVSd 2D 1.3 0.6 - 1.1 cm LVOT Peak PG 3.9 mmHg AoR Diam 2D 2.9 2.0 - 3.7 cm MV E Peak Michael 0.7 m/sec EDV 2D 70.1 cm3 MV A Peak Michael 0.9 m/sec ESV 2D 14.7 cm3 MV E/A 0.8 LA Dimen 2D 4.4 2.3 - 4.0 cm MV Decel Time 269 msec MV Decel Geary 3 MV E/A 0.8 Findings Left Ventricle: Normal left ventricular systolic function. Normal left ventricular cavity size. Mild concentric left ventricular hypertrophy. Ejection fraction is visually estimated at 60 %. Tissue Doppler/Mitral Doppler indices are consistent with impaired relaxation (Stage I diastolic dysfunction). Right Ventricle: Normal right ventricular size. Normal right ventricular systolic function. Left Atrium: There is mild enlargement of left atrium. Right Atrium: The right atrium is normal in size. Mitral Valve: Normal appearance of the mitral valve. Trace mitral regurgitation. Aortic Valve: Normal appearance of the aortic valve. No significant aortic stenosis or insufficiency. Aortic sclerosis without stenosis. Trileaflet aortic valve. Tricuspid Valve: Normal appearance of the tricuspid valve. Unable to obtain RVSP due to minimal presence of tricuspid regurgitation. There is trace tricuspid regurgitation. Pulmonic Valve: Pulmonic valve not well visualized. There is trace pulmonic regurgitation. Pericardium: Normal pericardium with no significant pericardial effusion. Aorta: Normal aortic root. IVC: Normal size and normal respiratory collapse consistent with normal right atrial pressure. Conclusions Normal left ventricular systolic function. Normal left ventricular cavity size. Mild concentric left ventricular hypertrophy. Ejection fraction is visually estimated at 60 %. Tissue Doppler/Mitral Doppler indices are consistent with impaired relaxation (Stage I diastolic dysfunction). Normal right ventricular size. Normal right ventricular systolic function. Normal appearance of the aortic valve. No significant aortic stenosis or insufficiency. Aortic sclerosis without stenosis. Trileaflet aortic valve. Normal appearance of the tricuspid valve. Unable to obtain RVSP due to minimal presence of tricuspid regurgitation. There is trace tricuspid regurgitation. Normal size and normal respiratory collapse consistent with normal right atrial pressure. No Vegetation, masses, or thrombi seen. Electronically Signed By: Suhail Solis 10-Feb-2017 15:13:07 -0700 Patient Name: CAROLINE WHITE Study Date: 10-Feb-2017 [id number]
--- NOTE | 2017-02-10 15:23 | CONS ---
Date/Time of Note Date/Time of Note DATE: 02/10/17 TIME: 15:20 Assessment/Plan Assessment/Plan Chief Complaint/Hosp Course Impression: Syncope- no e/o of ischemia on lab testing/ekg. echo with normal function. no arrhythmia on tele. unlikely to be primary cardiac in etiology, pt with PCI 2015 with resvasc, stress 06/2016 without ischemia. no further cardiac testing needed. likely with vasovagal vs. low blood sugar vs. orthostasis in etiology. cont hydration and recheck orthostatics, if nl consider further bp med titration. if still symptomatic could also place compression stockings. 2. h/o postural hypotension - ? autonomic from dm2, however orthostatics negative today. as above 3. DM2 per primary 4. CAD as above . 5. HTN Problems: Consultation Date/Type/Reason Admit Date/Time February 08, 2017 at 18:38 Date of Consultation: February 10, 2017 Type of Consultation: Cardiology Reason for Consultation Syncope Referring Provider: WILMA GARIBAY MD Hx of Present Illness Mr. Hernandez is a 72 y.o. man with h/o dm2, htn, CAD s/p PCI of LCx 05/2016. Pt now presenting for syncope. Pt states was not feeling well, had decreased po intake on sat nigh. No n/v, chest pain, sob, pnd, orthopnea. Has chronic dizziness with change in position. Pt states went to take shower on thursday am and felt weak in the shower and was trying to hold himself up but fell onto his l hip in the bath tub. Pt states he was too weak to move and son heard him fall and helped him up into a chair. pt states he regained some strength after a few mins and ambulated with assist to bedroom. Pt states after he fell, also had n/v. Denies any chest pain/pressure, palpitaitons, dizziness, sob. He denies any seizure type activity or slurred speech/focal weakness. denies previous history of similar event. pt brought to [facility] ED, given IVF, cxr/pelvic xray was without acute abnl, ct head was negative for acute abnl. orthostatics supine to sitting were positive with sbp drop 20mmHg after admission, however repeat are negative. pt states he still feels weak. has been up ambulating with nurse without difficulty. ekg was reviewed, nsr, no acute abnl. echo with nl lv/rv fxn, valve fxn. tele without event. Constitutional: improved, no complaints Eyes: no complaints Respiratory: no complaints Cardiovascular: no complaints Gastrointestinal: decreased appetite Genitourinary: no complaints Musculoskeletal: no complaints Neurologic: syncope Past Medical History Benign essential hypertension (401.1) (I10) Coronary artery disease (414.00) (I25.10) s.p PCI of LCx with OSMAN in 2015, stress 06/2016 negative Diabetes mellitus (250.00) (E11.9) Hyperlipidemia (272.4) (E78.5) Shortness of breath (786.05) (R06.02) Past Surgical History Past Surgical Hx: other (PCI Lcx 2015) Family History Significant Family History: other (no cad) Social History Alcohol Use: none Smoking Status: Never smoker Drug Use: none Exam/Review of Systems Vital Signs Vitals Vital Signs Date Time Temp Pulse Resp B/P Pulse Ox O2 Delivery O2 Flow Rate FiO2 02/10/17 12:00 73 02/10/17 11:44 98.5 18 166/78 95 02/09/17 11:40 Room Air Intake and Output 02/09/17 02/09/17 02/10/17 15:00 23:00 07:00 Intake Total 1400 ml 550 ml Output Total 925 ml 1200 ml 1600 ml Balance -925 ml 200 ml -1050 ml Exam Constitutional: alert, oriented Psych: nl mood/affect, no complaints Head: normocephalic Eyes: EOMI, nl conjunctiva ENMT: nl external ears & nose, nl lips & teeth Neck: non-tender, supple, No jvd Respiratory: clear to auscultation, normal air movement Cardiovascular: nl pulses, regular rate and rhythm, No S3, No S4, No edema, No irregular rhythm, No jugular venous distention ( JVD), No systolic murmur Gastrointestinal: non-tender, soft Musculoskeletal: nl extremities to inspection, nl gait and stance 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, nl mental status, nl speech, nl strength Results Result Diagram: 02/09/17 0551 02/09/17 0557 Results 24 hrs Laboratory Tests Test 02/09/17 17:21 02/09/17 20:17 02/10/17 05:30 02/10/17 07:46 Bedside Glucose 227 H 171 210 Magnesium Level 1.9 Test 02/10/17 12:01 Bedside Glucose 215 Medications Medications Current Medications Amlodipine Besylate (Norvasc) 10 mg DAILY PO Last administered on 02/10/17 08: 06; Admin Dose 10 MG; Start 02/09/17 at 09:00 Aspirin (Halfprin) 81 mg DAILY PO Last administered on 02/10/17 08:07; Admin Dose 81 MG; Start 02/09/17 at 09:00 Atorvastatin Calcium (Lipitor) 40 mg HS PO Last administered on 02/09/17 20:23 ; Admin Dose 40 MG; Start 02/09/17 at 21:00 Clopidogrel Bisulfate (plaVIX) 75 mg DAILY PO Last administered on 02/09/17 08 :23; Admin Dose 75 MG; Start 02/09/17 at 09:00 Insulin Glargine (Lantus) 44 unit DAILY@20 SC Last administered on 02/09/17 20 :19; Admin Dose 44 UNIT; Start 02/09/17 at 20:00 Levothyroxine Sodium (Synthroid) 150 mcg DAILY@06 PO Last administered on 06:40; Admin Dose 150 MCG; Start 02/09/17 at 06:00 Diagnostic Test (Pha) (Accu-Chek) 1 ea 02 XX Last administered on 02/09/17 01: 07; Admin Dose 1 EA; Start 02/09/17 at 02:00 Gabapentin (Neurontin) 900 mg TID PO Last administered on 02/10/17 14:27; Admin Dose 900 MG; Start 02/08/17 at 22:30 Miscellaneous Information 1 ea NOTE XX ; Start 02/08/17 at 23:00 Glucose (Glutose) 15 gm Q15M PRN PO DECREASED GLUCOSE; Start 02/08/17 at 23:00 Glucose (Glutose) 22.5 gm Q15M PRN PO DECREASED GLUCOSE; Start 02/08/17 at 23: 00 Dextrose (D50w Syringe) 25 ml Q15M PRN IV DECREASED GLUCOSE; Start 02/08/17 at 23:00 Dextrose (D50w Syringe) 50 ml Q15M PRN IV DECREASED GLUCOSE; Start 02/08/17 at 23:00 Glucagon (Glucagen) 1 mg Q15M PRN IM DECREASED GLUCOSE; Start 02/08/17 at 23:00 Glucose (Glutose) 15 gm Q15M PRN BUCCAL DECREASED GLUCOSE; Start 02/08/17 at 23 :00 Hydralazine HCl (Apresoline) 10 mg Q4H PRN IV Hypertension Last administered on 02/09/17 20:21; Admin Dose 10 MG; Start 02/09/17 at 01:00 Acetaminophen (Tylenol Tab) 650 mg Q6H PRN PO PAIN AND OR ELEVATED TEMP Last administered on 02/10/17 06:53; Admin Dose 650 MG; Start 02/09/17 at 10:00 Amlodipine Besylate (Norvasc) 10 mg DAILY PO ; Start 02/10/17 at 09:00 Aspirin (Aspirin) 81 mg DAILY PO ; Start 02/10/17 at 09:00 Atorvastatin Calcium (Lipitor) 40 mg QHS PO ; Start 02/09/17 at 21:00 Clopidogrel Bisulfate (plaVIX) 75 mg DAILY PO Last administered on 02/10/17 08 :07; Admin Dose 75 MG; Start 02/10/17 at 09:00 Gabapentin (Neurontin) 900 mg TID PO Last administered on 02/09/17 13:07; Admin Dose 900 MG; Start 02/09/17 at 13:00 Insulin Glargine (Lantus) 44 unit QHS SC ; Start 02/09/17 at 21:00 Pantoprazole (Protonix Tab) 40 mg DAILY@06 PO Last administered on 02/10/17 06 :43; Admin Dose 40 MG; Start 02/10/17 at 06:00 Nitroglycerin (Nitroglycerin (Sl Tab) 0.4 Mg) 1 tab Q5M PRN SL ANGINA; Start at 12:00 Miscellaneous Information 1 ea NOTE XX ; Start 02/09/17 at 12:30 Glucose (Glutose) 15 gm Q15M PRN PO DECREASED GLUCOSE; Start 02/09/17 at 12:30 Glucose (Glutose) 22.5 gm Q15M PRN PO DECREASED GLUCOSE; Start 02/09/17 at 12: 30 Dextrose (D50w Syringe) 25 ml Q15M PRN IV DECREASED GLUCOSE; Start 02/09/17 at 12:30 Dextrose (D50w Syringe) 50 ml Q15M PRN IV DECREASED GLUCOSE; Start 02/09/17 at 12:30 Glucagon (Glucagen) 1 mg Q15M PRN IM DECREASED GLUCOSE; Start 02/09/17 at 12:30 Glucose (Glutose) 15 gm Q15M PRN BUCCAL DECREASED GLUCOSE; Start 02/09/17 at 12 :30 Procedures Procedures cxr images reviewed, no acute abnl ekg reviewed per hpi BARBRA FREGOSO February 10, 2017 15:23
[2017-02-10] MEDS: hydrALAzine 20 MG INJ IV PRN (15:44)
[2017-02-10] MEDS: ATORVASTATIN 40 MG TAB PO SCH ×2 (20:38→20:39)
[2017-02-10] MEDS: INSULIN GLARGINE [LANtus] 3 ML PEN SC SCH ×2 (20:49→20:50)
[2017-02-11] VITALS (8 sets, daily range): BP systolic 145–157; BP diastolic 70–89; PULSE 65–106; RESP 16–19
[2017-02-11] MEDS: ACCU-CHEK XX SCH (02:00)
[2017-02-11] MEDS: LEVOTHYROXINE 150 MCG TAB PO SCH ×2 (06:04→06:07)
[2017-02-11] MEDS: PANTOPRAZOLE (EC) 40 MG TAB PO SCH ×2 (06:04→06:07)
[2017-02-11] MEDS: GABAPENTIN 300 MG CAP PO SCH ×3 (06:05→13:28)
[2017-02-11] MEDS: metFORMIN 500 MG TAB PO SCH (08:54)
[2017-02-11] MEDS: ASPIRIN (EC) 81 MG TAB PO SCH (08:54)
[2017-02-11] MEDS: CLOPIDOGREL 75 MG TAB PO SCH (08:55)
[2017-02-11] MEDS: AMLODIPINE 10 MG TAB PO SCH (08:55)
[2017-02-11] MEDS: INSULIN ASPART [NOVOLOG] 3 ML PEN SC SCH ×2 (09:00→12:09)
--- NOTE | 2017-02-11 11:30 | CONS ---
Date/Time of Note Date/Time of Note DATE: 02/11/17 TIME: 11:27 Assessment/Plan Assessment/Plan Chief Complaint/Hosp Course Impression: Syncope- no e/o of ischemia on lab testing/ekg. echo with normal function. no arrhythmia on tele. unlikely to be primary cardiac in etiology, pt with PCI 2015 with resvasc, stress 06/2016 without ischemia. no further cardiac testing needed. likely with vasovagal vs. low blood sugar now resolved. 2. h/o postural hypotension - repeat orthostatics negative, no further eval needed 3. DM2 per primary 4. CAD on asa/plavix given pci 05/2016. on statin 5. HTN- improved 140s-150s, improved. can titrate medications as needed as outpt Problems: Consultation Date/Type/Reason Admit Date/Time February 09, 2017 at 11:34 Initial Consult Date 02/10/17 Type of Consultation: Cardiology Referring Provider: WILMA GARIBAY MD 24 HR Interval Summary Free Text/Dictation no acute events. orthostatics negative this am, pt up walking around, denies dizziness. did have mild dizziness with standing he states lasted a few seconds , similar to chronic symptoms. no cp/sob. no palpitations. no presyncope. tele reviewed, nsr no events. Detailed Summary Eyes: no complaints ENT: no complaints Respiratory: no complaints Cardiovascular: no complaints Gastrointestinal: no complaints Exam/Review of Systems Vital Signs Vitals Vital Signs Date Time Temp Pulse Resp B/P Pulse Ox O2 Delivery O2 Flow Rate FiO2 02/11/17 08:03 65 02/11/17 07:11 97.9 16 145/70 96 02/09/17 11:40 Room Air Intake and Output 02/10/17 02/10/17 02/11/17 15:00 23:00 07:00 Intake Total 1000 ml 650 ml Output Total 1950 ml 1400 ml Balance -950 ml -750 ml Exam Constitutional: alert, oriented Psych: nl mood/affect, no complaints Head: normocephalic Eyes: EOMI, nl conjunctiva ENMT: nl external ears & nose, nl lips & teeth Neck: non-tender, supple, No jvd Respiratory: clear to auscultation, normal air movement Cardiovascular: nl pulses, regular rate and rhythm, No S3, No S4, No edema, No irregular rhythm, No jugular venous distention ( JVD), No systolic murmur Gastrointestinal: non-tender, soft Musculoskeletal: nl extremities to inspection, nl gait and stance Neurological: 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 intact, nl mental status, nl speech, nl strength Results Result Diagram: 02/09/17 0551 02/09/17 0557 Results 24 hrs Laboratory Tests Test 02/10/17 12:01 02/10/17 17:23 02/10/17 20:36 02/11/17 08:16 Bedside Glucose 215 269 H 191 163 Medications Medications Current Medications Amlodipine Besylate (Norvasc) 10 mg DAILY PO Last administered on 02/11/17 08: 55; Admin Dose 10 MG; Start 02/09/17 at 09:00 Aspirin (Halfprin) 81 mg DAILY PO Last administered on 02/11/17 08:54; Admin Dose 81 MG; Start 02/09/17 at 09:00 Atorvastatin Calcium (Lipitor) 40 mg HS PO Last administered on 02/10/17 20:38 ; Admin Dose 40 MG; Start 02/09/17 at 21:00 Clopidogrel Bisulfate (plaVIX) 75 mg DAILY PO Last administered on 02/11/17 08 :55; Admin Dose 75 MG; Start 02/09/17 at 09:00 Insulin Glargine (Lantus) 44 unit DAILY@20 SC Last administered on 02/10/17 20 :49; Admin Dose 44 UNIT; Start 02/09/17 at 20:00 Levothyroxine Sodium (Synthroid) 150 mcg DAILY@06 PO Last administered on 06:04; Admin Dose 150 MCG; Start 02/09/17 at 06:00 Diagnostic Test (Pha) (Accu-Chek) 1 ea 02 XX Last administered on 02/09/17 01: 07; Admin Dose 1 EA; Start 02/09/17 at 02:00 Gabapentin (Neurontin) 900 mg TID PO Last administered on 02/11/17 06:05; Admin Dose 900 MG; Start 02/08/17 at 22:30 Miscellaneous Information 1 ea NOTE XX ; Start 02/08/17 at 23:00 Glucose (Glutose) 15 gm Q15M PRN PO DECREASED GLUCOSE; Start 02/08/17 at 23:00 Glucose (Glutose) 22.5 gm Q15M PRN PO DECREASED GLUCOSE; Start 02/08/17 at 23: 00 Dextrose (D50w Syringe) 25 ml Q15M PRN IV DECREASED GLUCOSE; Start 02/08/17 at 23:00 Dextrose (D50w Syringe) 50 ml Q15M PRN IV DECREASED GLUCOSE; Start 02/08/17 at 23:00 Glucagon (Glucagen) 1 mg Q15M PRN IM DECREASED GLUCOSE; Start 02/08/17 at 23:00 Glucose (Glutose) 15 gm Q15M PRN BUCCAL DECREASED GLUCOSE; Start 02/08/17 at 23 :00 Hydralazine HCl (Apresoline) 10 mg Q4H PRN IV Hypertension Last administered on 02/10/17 15:44; Admin Dose 10 MG; Start 02/09/17 at 01:00 Acetaminophen (Tylenol Tab) 650 mg Q6H PRN PO PAIN AND OR ELEVATED TEMP Last administered on 02/10/17 17:26; Admin Dose 650 MG; Start 02/09/17 at 10:00 Pantoprazole (Protonix Tab) 40 mg DAILY@06 PO Last administered on 02/11/17 06 :04; Admin Dose 40 MG; Start 02/10/17 at 06:00 Nitroglycerin (Nitroglycerin (Sl Tab) 0.4 Mg) 1 tab Q5M PRN SL ANGINA; Start at 12:00 Miscellaneous Information 1 ea NOTE XX ; Start 02/09/17 at 12:30 Glucose (Glutose) 15 gm Q15M PRN PO DECREASED GLUCOSE; Start 02/09/17 at 12:30 Glucose (Glutose) 22.5 gm Q15M PRN PO DECREASED GLUCOSE; Start 02/09/17 at 12: 30 Dextrose (D50w Syringe) 25 ml Q15M PRN IV DECREASED GLUCOSE; Start 02/09/17 at 12:30 Dextrose (D50w Syringe) 50 ml Q15M PRN IV DECREASED GLUCOSE; Start 02/09/17 at 12:30 Glucagon (Glucagen) 1 mg Q15M PRN IM DECREASED GLUCOSE; Start 02/09/17 at 12:30 Glucose (Glutose) 15 gm Q15M PRN BUCCAL DECREASED GLUCOSE; Start 02/09/17 at 12 :30 Procedures Procedures imaging reports reviewed BARBRA FREGOSO February 11, 2017 11:30
--- NOTE | 2017-02-11 13:49 | PDOCDIS ---
Discharge Instructions CONDITION Patient Condition: Good HOME CARE INSTRUCTIONS: Special Diet: CARB CONTROLLED ACTIVITY: Activity Restrictions: Slowly Increase Activity Rest between Activity Bathing Restrictions: Shower FOLLOW UP/APPOINTMENTS Appointments WILMA Diaz MD February 11, 2017 13:49
--- NOTE | 2017-02-11 14:25 | DS ---
DATE OF ADMISSION: 02/09/2017 DATE OF DISCHARGE: HISTORY OF PRESENT ILLNESS AND HOSPITAL COURSE: This 72-year-old man was admitted to the hospital a fter he had a syncopal episode at home. The patient said he was in his usual state of health and we nt to take a shower, and while in the shower, he passed out and struck his buttocks on the bathroom floor. The patient said that he then went out and had dinner and then decided to come to the emerge ncy room. The patient was admitted with a diagnosis of syncope. The patient did have a CAT scan of the brain which did not show any intracranial hemorrhage or mass. There was some white matter dise ase compatible with chronic small vessel ischemia. The patient does have a history of longstanding insulin-dependent diabetes mellitus, hypertension, peripheral neuropathy, coronary artery disease st atus post stent placement. The patient also has had chronic vertigo. Neuro workup previously has b een negative. The patient has also had episodes of postural hypotension. The patient has come in t o my office at times with very low blood pressure, and I have had to adjust his blood pressure medic ation. He also goes to the [facility] and has told me that they told him his blood pressure was lo w at times. The patient here in the hospital was rehydrated, and he felt better. He was up walking around without any dizziness or lightheadedness. He was seen by physical therapy and was walked by them. He was also walked with the nurse. He is overall much improved. I explained to him that I thought that his blood pressure had dropped and that is what caused his syncopal episode. I asked h im to start to monitor his blood pressure at home. If he notices that his blood pressure is low, to not take his blood pressure medication. I also told him to keep himself well hydrated and to eat 3 meals a day. PLAN: He will be discharged home today on his routine medications which include the followin. Amlodipine 10 mg a day. 2. Insulin, 44 units of Lantus at bedtime. 3. Metformin 1000 mg twice a day. 4. Nitroglycerin 0.4 sublingual p.r.n. chest pain. 5. Omeprazole 20 mg a day. 6. Gabapentin 700 mg 3 times a day. 7. Plavix 75 mg a day. 8. Atorvastatin 40 mg at bedtime. 9. Aspirin 81 mg a day. The patient was in good condition at the time of discharge. The patient will see me in my office in 1 to 2 weeks. DISCHARGE DIAGNOSES: 1. Syncope. 2. Postural hypotension. 3. Hypertension. 4. Insulin-dependent diabetes mellitus. 5. Coronary artery disease. Dictated By: WILMA GARIBAY MD, ND/CAROL Conf#: [id number] DID#: [id number]
== END 2017-02-11 15:00 | disposition home or self-care (01) | DRG 312 ==
LOC: E/R 15:45 → MS4 18:38 → OBSVTOIN 02-09 11:34
PROVIDERS: ADMIT Internal Medicine; ATTEND Internal Medicine
DX: I95.1 Orthostatic hypotension (principal); E86.0 Dehydration; E11.9 Type 2 diabetes mellitus without complications; I10 Essential (primary) hypertension; I25.10 Atherosclerotic heart disease of native coronary artery without angina pectoris; E03.9 Hypothyroidism, unspecified; N40.0 Benign prostatic hyperplasia without lower urinary tract symptoms; Z96.651 Presence of right artificial knee joint; R42 Dizziness and giddiness; M25.552 Pain in left hip; I25.2 Old myocardial infarction; Z79.02 Long term (current) use of antithrombotics/antiplatelets; Z79.4 Long term (current) use of insulin; Z79.82 Long term (current) use of aspirin; Z95.5 Presence of coronary angioplasty implant and graft
CPT/HCPCS: 36415; 70450; 71010; 72170; 80053; 81003; 82962; 83690; 83735; 83880; 84100; 84443; 84484; 85025; 93005; 93306; 96361; 96374; 97116; 97162; 97530; 99217; G0378; J0360; J1815; J3475; J7030

== ENCOUNTER 2017-09-07 08:22 | Inpatient (IN) | payer MEDICARE, OTHER ==
[~2017-09-07] VITALS: Ht 188 cm; Wt 79.0 kg
[~2017-09-07 08:22] MED LIST changes: +AMLO-147 PO; -GABAPENTIN 400 MG CAP PO SCH; +LANT3I SC; -LISI20TA11 PO; -MECL12.574 PO; +METF500T4 PO; -MTF1000T PO; +NITR0.4T32 SL; -NITR0.4T6 SL; -TRAZ50TA18 PO
[2017-09-07] MEDS ORDERED: ONDANSETRON 4 MG INJ IV STA (08:29)
[2017-09-07] MEDS ORDERED: SOD CHLORIDE 0.9% 1,000 ML IV STA (08:29)
[2017-09-07 09:09] LABS: BASOPHILS % 0.6 % (0.0-2.0); EOSINOPHILS % 0.6 % (0.0-7.0); HEMATOCRIT 40.5 % (42.0-52.0); HEMOGLOBIN 13.6 g/dl (14.0-18.0); LYMPHOCYTES # 0.7 10^3/ul (0.8-2.9); LYMPHOCYTES % 9.4 % (15.0-51.0); MEAN CORPUSCULAR HEMOGLOBIN 30.1 pg (29.0-33.0); MEAN CORPUSCULAR HGB CONC 33.6 g/dl (32.0-37.0); MEAN CORPUSCULAR VOLUME 89.6 fl (82.0-101.0); MEAN PLATELET VOLUME 10.4 fl (7.4-10.4); MONOCYTE # 1.1 10^3/ul (0.3-0.9); MONOCYTES % 15.8 % (0.0-11.0); NEUTROPHIL # 5.3 10^3/ul (1.6-7.5); NEUTROPHILS % 73.2 % (39.0-77.0); PLATELET COUNT 232 10^3/UL (140-415); RED BLOOD COUNT 4.52 10^6/ul (4.70-6.10); RED CELL DISTRIBUTION WIDTH 12.8 % (11.5-14.5); WHITE BLOOD COUNT 7.2 10^3/ul (4.8-10.8)
--- NOTE | 2017-09-07 09:29 | RADRPT ---
PROCEDURE: CT abdomen and pelvis without contrast. CLINICAL INDICATION: Abdominal pain TECHNIQUE: CT scan of the abdomen and pelvis without contrast was performed on a multi-slice [facility]. The patient was scanned without intravenous contrast. 3-D sagittal and coronal reformatted images were obtained from the axial source images. CTDI: 18.0 and DLP: 1382.7 One or more of the following dose reduction techniques were used: Automated exposure control. Adjustment of the mA and/or kV according to patient's size. Use of iterative reconstruction technique. DICOM images are available. COMPARISON: None. FINDINGS: Incidental images through the lung bases reveal no evidence of focal basilar consolidation or pleura l effusion. The heart is mildly enlarged. The liver, spleen, pancreas and adrenal glands are unremarkable for noncontrast study. Gallstones a re seen within the gallbladder. The gallbladder is otherwise unremarkable. The kidneys are bilatera lly symmetrical without evidence of hydronephrosis. There is no evidence of obstructive uropathy. No significant retroperitoneal adenopathy is identified. Atherosclerotic changes are seen in the ab dominal aorta without evidence of aneurysm. The stomach is grossly unremarkable. There is no evidence of small bowel obstruction. A normal appen marley is identified. There are mild strandy changes in the central mesentery primarily in the upper ab domen which can be seen with panniculitis. There are scattered colonic diverticula without evidence of diverticulitis. Stool is seen in the rectum.. No free fluid or free intraperitoneal air is ident ified. Evaluation of the osseous structures reveals no acute change. IMPRESSION: 1. Mild strandy changes are seen in the central mesentery in the upper abdomen which can be seen wi th panniculitis. 2. Scattered colonic diverticula without evidence of diverticulitis. 3. Gallstones are seen within the gallbladder. The gallbladder is otherwise unremarkable. 4. Mild cardiomegaly. RPTAT:AAJJ Physician Jessica Date Time Electronically viewed and signed by Nicholas Sheth Physician on 09/07/2017 09:28 /
[2017-09-07 09:44] LABS: ALANINE AMINOTRANSFERASE 81 IU/L (13-69); ALBUMIN 4.1 g/dl (3.3-4.9); ALBUMIN/GLOBULIN RATIO 1.32; ALKALINE PHOSPHATASE 57 IU/L (42-121); ANION GAP 15 (8-16); ASPARTATE AMINO TRANSFERASE 62 IU/L (15-46); BILIRUBIN,INDIRECT 0.5 mg/dl (0-1.1); BILIRUBIN,TOTAL 0.5 mg/dl (0.2-1.3); BLOOD UREA NITROGEN 12 mg/dl (7-20); CALCIUM 9.5 mg/dl (8.4-10.2); CARBON DIOXIDE 28 mmol/L (21-31); CHLORIDE 98 mmol/L (97-110); GLUCOSE 277 mg/dl (70-220); POTASSIUM 4.2 mmol/L (3.5-5.1); SODIUM 137 mmol/L (135-144); TOTAL PROTEIN 7.2 g/dl (6.1-8.1)
[2017-09-07 09:54] LABS: ADD UMIC YES; UR ASCORBIC ACID NEGATIVE (NEGATIVE); UR BILIRUBIN (Dip) NEGATIVE (NEGATIVE); UR BLOOD (Dip) 1+ mg/dL (NEGATIVE); UR CLARITY CLEAR (CLEAR); UR COLOR STRAW (YELLOW); UR GLUCOSE (Dip) 3+ mg/dL (NEGATIVE); UR KETONES (Dip) TRACE mg/dL (NEGATIVE); UR LEUKOCYTE ESTERASE (Dip) NEGATIVE Leu/ul (NEGATIVE); UR NITRITE (Dip) NEGATIVE (NEGATIVE); UR RBC 0 /HPF (0-5); UR TOTAL PROTEIN (Dip) 1+ mg/dl (NEGATIVE); UR UROBILINOGEN (Dip) NEGATIVE (NEGATIVE)
[2017-09-07 09:58] LABS: TROPONIN-I < 0.012 ng/ml (0.00-0.12)
[2017-09-07] MEDS ORDERED: INSULIN LISPRO 100 UNIT/ML VIAL SC STA (10:03)
--- NOTE | 2017-09-07 10:43 | ERD ---
ER Documentation Chief Complaint Chief Complaint BIBA FOR N/V AND GENERALIZED WEAKNESS X 2 DAYS HPI This is a 72-year-old gentleman with a history of diabetes who presents to the emergency room with multiple complaints that include nonbloody nonbilious emesis and generalized malaise. He describes approximately 2 days of symptoms. He states that he has not been feeling well. No recent diarrhea, travel, sick contacts, antibiotics. He denies any chest pain or shortness of breath, no abdominal pain. ROS All systems reviewed and are negative except as per history of present illness. Medications Home Meds Active Scripts Ondansetron (Ondansetron Odt) 4 Mg Tab.rapdis, 4 MG PO Q6H Y for NAUSEA AND/OR VOMITING, #30 TAB Prov:WILMA CHANCE MD 09/07/17 Amlodipine Besylate* (Amlodipine Besylate*) 10 Mg Tablet, 10 MG PO DAILY, #30 TAB Prov:SHARI GUERRA MD 02/08/17 Omeprazole* (Omeprazole*) 20 Mg Capsule.dr, 40 MG PO AC BREAKFAST, #30 CAP Prov:SHARI GUERRA MD 02/08/17 Clopidogrel Bisulfate (Clopidogrel) 75 Mg Tablet, 75 MG PO DAILY, #30 TAB Prov:SHARI GUERRA MD 02/08/17 Reported Medications Insulin Glargine* (Lantus*) 100 Unit/Ml Soln, 44 UNIT SC QHS, #1 VIAL 02/08/17 Metformin Hcl* (Metformin Hcl*) 500 Mg Tablet, 1000 MG PO WITH BREAKFAST DINNE, #60 TAB 02/08/17 Nitroglycerin* (Nitroglycerin* SL) 0.4 Mg Tab.subl, 0.4 MG SL Q5MIN Y for CHEST PAIN, BOTTLE 09/09/16 Levothyroxine Sodium* (Levothyroxine Sodium*) 150 Mcg Tablet, 150 MCG PO BEFORE BREAKFAST, #30 TAB 09/09/16 Gabapentin* (Gabapentin*) 300 Mg Capsule, 900 MG PO TID, #270 CAP 09/09/16 Atorvastatin* (Atorvastatin*) 40 Mg Tablet, 40 MG PO QHS, #30 TAB 09/09/16 Aspirin* (Aspirin* Chew) 81 Mg Tab.chew, 81 MG PO DAILY, TAB.CHEW 09/09/16 Allergies Allergies: Coded Allergies: Sulfa (Sulfonamide Antibiotics) (Verified Allergy, Unknown, 5/14/17) PMhx/Soc History of Surgery: Yes (Total knee replacement, stent ) Anesthesia Reaction: No Hx Neurological Disorder: No Hx Respiratory Disorders: No Hx Cardiac Disorders: Yes (Stent , High cholesterol ) Hx Psychiatric Problems: No Hx Miscellaneous Medical Probl: Yes (R TKR,FALLS,VERTIGO,DM,CAD,SQUAMOUS CELL HEAD CA) Hx Alcohol Use: No Hx Substance Use: No Hx Tobacco Use: No Smoking Status: Never smoker FmHx Family History: diabetes Physical Exam Vitals Vital Signs Date Time Temp Pulse Resp B/P Pulse Ox O2 Delivery O2 Flow Rate FiO2 09/07/17 09:05 99.2 89 20 189/103 92 Physical Exam General: Well developed, well nourished, no acute distress Head: Normocephalic, atraumatic. Eyes: Pupils equally reactive, EOM intact ENT: Slightly dry mucous membranes Neck: Supple, no lymphadenopathy Respiratory: Lungs clear bilaterally, no distress Cardiovascular: RRR, no murmurs, rubs, or gallops Abdominal: Soft, non-tender, non-distended, no peritoneal signs, negative Isaacs sign : Deferred MSK: No edema, no unilateral swelling, 5/5 strength Neurologic: Alert and oriented, moving all extremities, normal speech, no focal weakness, no cerebellar signs, no meningismus Skin: No rash Psych: Normal mood Result Diagram: 09/07/17 0900 09/07/17 0900 Results 24 hrs Laboratory Tests Test 09/07/17 09:00 09/07/17 10:12 White Blood Count 7.210^3/ul Red Blood Count 4.5210^6/ul Hemoglobin 13.6g/dl Hematocrit 40.5% Mean Corpuscular Volume 89.6fl Mean Corpuscular Hemoglobin 30.1pg Mean Corpuscular Hemoglobin Concent 33.6g/dl Red Cell Distribution Width 12.8% Platelet Count 20415^3/UL Mean Platelet Volume 10.4fl Neutrophils % 73.2% Lymphocytes % 9.4% Monocytes % 15.8% Eosinophils % 0.6% Basophils % 0.6% Nucleated Red Blood Cells % 0.0/100WBC Neutrophils # 5.310^3/ul Lymphocytes # 0.710^3/ul Monocytes # 1.110^3/ul Eosinophils # 0.010^3/ul Basophils # 0.010^3/ul Nucleated Red Blood Cells # 0.010^3/ul Urine Color STRAW Urine Clarity CLEAR Urine pH 7.0 Urine Specific [place] 1.010 Urine Ketones TRACEmg/dL Urine Nitrite NEGATIVEmg/dL Urine Bilirubin NEGATIVEmg/dL Urine Urobilinogen NEGATIVEmg/dL Urine Leukocyte Esterase NEGATIVELeu/ul Urine Microscopic RBC 0/HPF Urine Microscopic WBC 0/HPF Urine Hemoglobin 1+mg/dL Urine Glucose 3+mg/dL Urine Total Protein 1+mg/dl Sodium Level 137mmol/L Potassium Level 4.2mmol/L Chloride Level 98mmol/L Carbon Dioxide Level 28mmol/L Anion Gap 15 Blood Urea Nitrogen 12mg/dl Creatinine 0.90mg/dl Glucose Level 277mg/dl Calcium Level 9.5mg/dl Total Bilirubin 0.5mg/dl Direct Bilirubin 0.00mg/dl Indirect Bilirubin 0.5mg/dl Aspartate Amino Transf (AST/SGOT) 62IU/L Alanine Aminotransferase (ALT/SGPT) 81IU/L Alkaline Phosphatase 57IU/L Troponin I < 0.012ng/ml Total Protein 7.2g/dl Albumin 4.1g/dl Globulin 3.10g/dl Albumin/Globulin Ratio 1.32 Lipase 54U/L Bedside Glucose 239mg/dL Current Medications Medications (Trade) Dose Ordered Sig/Ozzie Route PRN Reason Start Time Stop Time Status Last Admin Dose Admin Sodium Chloride (NS) 1,000 ml @ 1,000 mls/hr Q1H STAT IV 09/07/17 08:29 09/07/17 09:28 DC 09/07/17 09:02 Ondansetron HCl (Zofran Inj) 4 mg ONCE STAT IV 09/07/17 08:29 09/07/17 08:31 DC 09/07/17 09:02 Insulin Human Lispro (Humalog) 6 unit ONCE STAT SC 09/07/17 10:03 09/07/17 10:05 DC 09/07/17 10:15 Procedures/MDM EKG, MONITORS, & DIAGNOSTIC IMAGING: EKG: I reviewed and interpreted a 12-lead EKG. Rhythm: Normal sinus rhythm Ectopy: None Intervals: No abnormalities ST segments: No elevations or depressions T waves: No contiguous inversions CT abdomen and pelvis IMPRESSION: 1. Mild strandy changes are seen in the central mesentery in the upper abdomen which can be seen with panniculitis. 2. Scattered colonic diverticula without evidence of diverticulitis. 3. Gallstones are seen within the gallbladder. The gallbladder is otherwise unremarkable. 4. Mild cardiomegaly. RPTAT:AAJJ LAB INTERPRETATION: No significant leukocytosis, normal hemoglobin, hyperglycemia without evidence of diabetic ketoacidosis, small ketonuria MEDICAL DECISION MAKING: The patient presents with nausea and vomiting. The patient has evidence of hyperglycemia will benefit from screening for DKA. The patient also has a benign abdominal exam but given his age and history of diabetes I believe CT imaging of the abdomen and pelvis would be appropriate. The patient has no chest pain or shortness of breath or headache to suggest cardio pulmonary process or increased intracranial pressure. ER COURSE: The patient was given IV fluids and nausea medication. The patient CT shows evidence of panniculitis but based on clinical exam this is not consistent with what is going on. He has no abdominal tenderness and no skin changes. This is possibly related to the patient's body habitus. The patient had slight hyperglycemia with small ketonuria but no evidence of anion gap acidosis. Subcutaneous Humalog provided, IV fluids provided. The patient's symptoms are improving and he has since tolerated oral intake. At this point I feel outpatient management would be appropriate. This is potentially related to a viral process though influenza screen is negative. No indication for Tamiflu currently. Return precautions were discussed including persistent vomiting. I kept the patient and/or family informed of laboratory and diagnostic imaging results throughout the emergency room course. DISPOSITION PLAN: We discussed follow up with the patient's primary care doctor within 24 to 48 hours as needed. We also discussed return to the emergency room for worsening symptoms or worsening condition. Outpatient referral: [None required] Discharge Medications: Zofran Departure Diagnosis: Primary Impression: Nausea and vomiting Vomiting type: unspecified Vomiting Intractability: non-intractable Qualified Code: R11.2 - Non-intractable vomiting with nausea, unspecified vomiting type Additional Impression: Hyperglycemia Condition: Stable WILMA CHANCE MD Sep 07, 2017 10:43
[2017-09-07] MEDS ORDERED: ONDA4TAB14 PO (11:10)
[2017-09-07] MEDS ORDERED: ONDANSETRON 4 MG INJ IV PRN (12:30)
[2017-09-07] MEDS ORDERED: ACETAMINOPHEN 325 MG TAB PO PRN (12:30)
[2017-09-07] MEDS ORDERED: LABETALOL HCL 20MG INJ IV ONE (13:00)
[2017-09-07] MEDS ORDERED: NICARDipine HCL 30 MG CAPSULE ONE (14:24)
[2017-09-07] MEDS ORDERED: NICARDipine HCL 30 MG CAPSULE PO ONE (14:30)
[2017-09-07 15:50] VITALS: BP 179/101; PULSE 102; RESP 18; Ht 188 cm; Wt 79.0 kg
[2017-09-07] MEDS ORDERED: NACL 0.9% 3 ML SYG IV SCH (17:30)
[2017-09-07] MEDS: metFORMIN 500 MG TAB PO SCH (18:00)
[2017-09-07] MEDS: ONDANSETRON 4 MG INJ IV PRN (18:52)
[2017-09-07] MEDS: SOD CHLORIDE 0.9% 1,000 ML IV SCH (18:54)
[2017-09-07] MEDS ORDERED: GLUCOSE GEL 15 GRAM TUBE BUCCAL PRN (19:00)
[2017-09-07] MEDS ORDERED: DEXTROSE 50% 50 ML SYRINGE IV PRN ×2 (19:00)
[2017-09-07] MEDS ORDERED: GLUCOSE GEL 15 GRAM TUBE PO PRN ×2 (19:00)
[2017-09-07] MEDS ORDERED: GLUCAGON 1 MG INJ IM PRN (19:00)
[2017-09-07 20:29] VITALS: BP 175/96; RESP 20
--- NOTE | 2017-09-07 20:33 | HP ---
DATE OF ADMISSION: 09/07/2017 REASON FOR ADMISSION: Generalized weakness, nausea, vomiting. HISTORY OF PRESENT ILLNESS: This 72-year-old man says that he has been having nausea with vomiting for the last 2 days. He has also had some incontinence of stool and urine. He is currently wearing diapers, Depends. The patient has had a long history of multiple medical problems including vestib ular dysfunction, ataxia, poor diabetes control, frequent falls and syncope. Apparently he fell a m onth ago, injured his chest. He also has had some right shoulder and hip pain. PAST MEDICAL HISTORY: 1. Hypertension. 2. Postural hypotension. 3. Ataxia. 4. Type 2 diabetes mellitus, on insulin. 5. Hypothyroidism. 6. Hyperlipidemia. 7. Squamous cell carcinoma of the head. 8. Atherosclerotic heart disease, status post stent placement. 9. Chronic ataxia and vestibular dysfunction. PAST SURGICAL HISTORY: Status post thyroglossal duct cyst removed in 1981, bone spur, right foot, r esection in 1981, left eye pterygium removed in 2005, left foot surgery to fuse bones in 2005, right total knee replacement in 2010, coronary stent placement. ALLERGIES: SULFA DRUGS. SOCIAL HISTORY: He does not smoke or use alcohol. FAMILY HISTORY: Diabetes mellitus, coronary artery disease. CURRENT MEDICATIONS: Include the followin. Plavix 75 mg a day. 2. Amlodipine 10 mg a day. 3. Atorvastatin 40 mg a day. 4. Nitroglycerin sublingual p.r.n. chest pain. 5. Aspirin 81 mg a day. 6. Gabapentin 900 mg 3 times a day. 7. Omeprazole 40 mg a day. 8. Zofran 4 mg tablets p.r.n. nausea. 9. Lantus insulin 44 units at bedtime daily. 10. Levothyroxine 150 mcg a day. 11. Metformin 1000 mg twice a day. PHYSICAL EXAMINATION: GENERAL: At this time, reveals a well-developed, ill-appearing man who is lethargic, but is able to answer questions. VITAL SIGNS: Temperature 100.5, pulse of 102, respirations 18, blood pressure 179/101, O2 saturatio n of 96% on room air. HEENT: Head normocephalic. Eyes: Extraocular muscles intact. Nose and mouth normal. NECK: Supple. No neck vein distention. LUNGS: Clear to auscultation. HEART: Regular rhythm. No murmurs, gallops or rubs. ABDOMEN: Soft, nontender, no masses or megaly. EXTREMITIES: No peripheral edema. NEUROLOGIC: Grossly intact. No obvious focal neurologic deficits. IMPRESSION: 1. Generalized weakness with nausea and vomiting. The patient does seem more lethargic than usual. He has been on high doses of gabapentin for peripheral neuropathy. Possibly this is making him mo re lethargic. I will cut back the dose of this medication. 2. Nausea and vomiting. The patient could have a viral gastroenteritis, although the other possibi lity is diabetic gastroparesis. 3. Generalized weakness. 4. History of postural hypotension. 5. He had an episode of near syncope which occurred in the emergency room today. I have found the patient to be orthostatic on previous testing and this could be causing a problem now. I will do or thostatic blood pressure checks. 6. Insulin-dependent diabetes mellitus. 7. Chronic vestibular dysfunction with ataxia. 8. The patient has fever, no obvious source of infection. We will check a chest x-ray. Urinalysis is unremarkable. PLAN: 1. IV fluids. 2. Antiemetics. 3. Postural blood pressure. 4. Sliding scale insulin. 5. Taper gabapentin dose. 6. Check labs in the morning. Dictated By: WILMA GARIBAY MD, ND/CAROL Conf#: [id number] DID#: [id number]
[2017-09-07] MEDS: GABAPENTIN 300 MG CAP PO SCH (20:46)
[2017-09-07] MEDS: ATORVASTATIN 40 MG TAB PO SCH (20:46)
[2017-09-07] MEDS: INSULIN GLARGINE [LANtus] 3 ML PEN SC SCH (20:47)
[2017-09-07] MEDS: INSULIN ASPART [NOVOLOG] 3 ML PEN SC SCH (20:48)
--- NOTE | 2017-09-07 21:50 | RADRPT ---
PROCEDURE: XR Chest. CLINICAL INDICATION: Cough. TECHNIQUE: AP Portable chest. COMPARISON: 09/09/2016 FINDINGS: There is mild cardiomegaly. The lungs are clear. The osseous structures are unremarkable. IMPRESSION: No acute findings. RPTAT: HIKT .Adan Tobar MD, Date Time Electronically viewed and signed by .Adan Tobar MD, MD on 09/07/2017 21:50 .T/
[2017-09-07 22:33] VITALS: BP 144/93
[2017-09-08] VITALS (8 sets, daily range): BP systolic 134–183; BP diastolic 70–91; PULSE 73–87; RESP 18–20
[2017-09-08] MEDS: SOD CHLORIDE 0.9% 1,000 ML IV SCH ×3 (03:19→17:08)
[2017-09-08] MEDS: ONDANSETRON 4 MG INJ IV PRN (04:58)
[2017-09-08 05:04] LABS: BASOPHILS % 0.4 % (0.0-2.0); HEMOGLOBIN 13.8 g/dl (14.0-18.0); LYMPHOCYTES # 1.3 10^3/ul (0.8-2.9); LYMPHOCYTES % 17.3 % (15.0-51.0); MEAN CORPUSCULAR HEMOGLOBIN 29.6 pg (29.0-33.0); MEAN CORPUSCULAR HGB CONC 32.9 g/dl (32.0-37.0); MEAN CORPUSCULAR VOLUME 89.9 fl (82.0-101.0); MEAN PLATELET VOLUME 10.4 fl (7.4-10.4); MONOCYTE # 1.1 10^3/ul (0.3-0.9); MONOCYTES % 13.8 % (0.0-11.0); NEUTROPHIL # 5.2 10^3/ul (1.6-7.5); NEUTROPHILS % 68.1 % (39.0-77.0); PLATELET COUNT 226 10^3/UL (140-415); RED BLOOD COUNT 4.67 10^6/ul (4.70-6.10); RED CELL DISTRIBUTION WIDTH 13.2 % (11.5-14.5); WHITE BLOOD COUNT 7.6 10^3/ul (4.8-10.8)
[2017-09-08] MEDS: LEVOTHYROXINE 150 MCG TAB PO SCH (05:11)
[2017-09-08] MEDS: PANTOPRAZOLE (EC) 40 MG TAB PO SCH (05:11)
[2017-09-08 06:17] LABS: ALBUMIN/GLOBULIN RATIO 1.29; BILIRUBIN,INDIRECT 0.3 mg/dl (0-1.1); BILIRUBIN,TOTAL 0.3 mg/dl (0.2-1.3); CALCIUM 9.2 mg/dl (8.4-10.2); CREATININE 0.87 mg/dl (0.61-1.24); MAGNESIUM 1.6 mg/dl (1.7-2.5); POTASSIUM 3.8 mmol/L (3.5-5.1); TOTAL PROTEIN 7.1 g/dl (6.1-8.1)
[2017-09-08 06:48] LABS: THYROID STIMULATING HORMONE 0.768 MIU/L (0.465-4.680)
[2017-09-08] MEDS: ACETAMINOPHEN 325 MG TAB PO PRN ×2 (06:52→20:13)
[2017-09-08] MEDS ORDERED: NON-FORMULARY/PATIENT OWN MED (Omeprazole* 40 MG) PO SCH (07:20)
--- NOTE | 2017-09-08 08:50 | PN ---
Date/Time of Note Date/Time of Note DATE: 09/08/17 TIME: 08:45 Assessment/Plan VTE Prophylaxis VTE Prophylaxis Intervention: ambulation, SCD's Lines/Catheters IV Catheter Type (from Nrs): Peripheral IV Urinary Cath still in place: No Assessment/Plan Chief Complaint/Hosp Course #1.Nausea ,vomiting , generalized weakness. He seems better today. I will order physical therapy and see if he can get up and walk. 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 #6 low-grade fever , no obvious source of infection. Problems: Subjective 24 Hr Interval Summary Free Text/Dictation He is awake and alert. He is drinking fluids. His mental status seems improved. Constitutional: improved, no complaints Gastrointestinal: no complaints Genitourinary: no complaints Musculoskeletal: no complaints Skin: no complaints Neurologic: no complaints Exam/Review of Systems Vital Signs Vitals Vital Signs Date Time Temp Pulse Resp B/P Pulse Ox O2 Delivery O2 Flow Rate FiO2 09/08/17 08:18 73 134/70 09/08/17 07:22 99.5 20 96 09/08/17 06:06 Nasal Cannula Intake and Output 09/07/17 09/07/17 09/08/17 15:00 23:00 07:00 Intake Total 100 ml 1800 ml Output Total 1600 ml Balance 100 ml 200 ml Exam Constitutional: alert, oriented, well developed Psych: no complaints Head: normocephalic ENMT: nl external ears & nose, nl lips & teeth, nl nasal mucosa & septum Respiratory: clear to auscultation, normal air movement Cardiovascular: regular rate and rhythm Gastrointestinal: soft Musculoskeletal: nl extremities to inspection Results Result Diagram: 09/08/17 0435 09/08/17 0435 Results 24 hrs Laboratory Tests Test 09/07/17 09:00 09/07/17 10:12 09/07/17 16:09 09/07/17 20:43 White Blood Count 7.2 # Red Blood Count 4.52 L Hemoglobin 13.6 L Hematocrit 40.5 L Mean Corpuscular Volume 89.6 Mean Corpuscular Hemoglobin 30.1 Mean Corpuscular Hemoglobin Concent 33.6 Red Cell Distribution Width 12.8 Platelet Count 232 Mean Platelet Volume 10.4 Neutrophils % 73.2 Lymphocytes % 9.4 L Monocytes % 15.8 H Eosinophils % 0.6 Basophils % 0.6 Nucleated Red Blood Cells % 0.0 Neutrophils # 5.3 Lymphocytes # 0.7 L Monocytes # 1.1 H Eosinophils # 0.0 Basophils # 0.0 Nucleated Red Blood Cells # 0.0 Urine Color STRAW Urine Clarity CLEAR Urine pH 7.0 Urine Specific [place] 1.010 Urine Ketones TRACE A Urine Nitrite NEGATIVE Urine Bilirubin NEGATIVE Urine Urobilinogen NEGATIVE Urine Leukocyte Esterase NEGATIVE Urine Microscopic RBC 0 Urine Microscopic WBC 0 Urine Hemoglobin 1+ H Urine Glucose 3+ H Urine Total Protein 1+ H Sodium Level 137 Potassium Level 4.2 Chloride Level 98 Carbon Dioxide Level 28 Anion Gap 15 Blood Urea Nitrogen 12 Creatinine 0.90 Glucose Level 277 H Calcium Level 9.5 Total Bilirubin 0.5 Direct Bilirubin 0.00 Indirect Bilirubin 0.5 Aspartate Amino Transf (AST/SGOT) 62 H Alanine Aminotransferase (ALT/SGPT) 81 H Alkaline Phosphatase 57 Troponin I < 0.012 Total Protein 7.2 Albumin 4.1 Globulin 3.10 Albumin/Globulin Ratio 1.32 Lipase 54 Bedside Glucose 239 H 229 H 247 H Test 09/08/17 01:55 09/08/17 04:35 Bedside Glucose 263 H White Blood Count 7.6 Red Blood Count 4.67 L Hemoglobin 13.8 L Hematocrit 42.0 Mean Corpuscular Volume 89.9 Mean Corpuscular Hemoglobin 29.6 Mean Corpuscular Hemoglobin Concent 32.9 Red Cell Distribution Width 13.2 Platelet Count 226 Mean Platelet Volume 10.4 Neutrophils % 68.1 Lymphocytes % 17.3 Monocytes % 13.8 H Eosinophils % 0.0 Basophils % 0.4 Nucleated Red Blood Cells % 0.0 Neutrophils # 5.2 Lymphocytes # 1.3 Monocytes # 1.1 H Eosinophils # 0.0 Basophils # 0.0 Nucleated Red Blood Cells # 0.0 Sodium Level 139 Potassium Level 3.8 Chloride Level 97 Carbon Dioxide Level 30 Anion Gap 16 Blood Urea Nitrogen 12 Creatinine 0.87 Glucose Level 217 Hemoglobin A1c 9.7 H Calcium Level 9.2 Magnesium Level 1.6 L Total Bilirubin 0.3 Direct Bilirubin 0.00 Indirect Bilirubin 0.3 Aspartate Amino Transf (AST/SGOT) 62 H Alanine Aminotransferase (ALT/SGPT) 82 H Alkaline Phosphatase 45 Total Protein 7.1 Albumin 4.0 Globulin 3.10 Albumin/Globulin Ratio 1.29 Thyroid Stimulating Hormone (TSH) 0.768 Medications Medications Current Medications Sodium Chloride (NS) 1,000 ml @ 100 mls/hr Q10H IV Last administered on 04:58; Admin Dose 100 MLS/HR; Start 09/07/17 at 17:19 Ondansetron HCl (Zofran Inj) 4 mg Q6H PRN IV NAUSEA AND/OR VOMITING Last administered on 09/08/17 04:58; Admin Dose 4 MG; Start 09/07/17 at 17:30 Amlodipine Besylate (Norvasc) 10 mg DAILY PO ; Start 09/08/17 at 09:00 Aspirin (Aspirin) 81 mg DAILY PO ; Start 09/08/17 at 09:00 Atorvastatin Calcium (Lipitor) 40 mg QHS PO Last administered on 09/07/17 20: 46; Admin Dose 40 MG; Start 09/07/17 at 21:00 Clopidogrel Bisulfate (plaVIX) 75 mg DAILY PO ; Start 09/08/17 at 09:00 Gabapentin (Neurontin) 900 mg TID PO Last administered on 09/07/17 20:46; Admin Dose 900 MG; Start 09/07/17 at 21:00 Insulin Glargine (Lantus) 44 unit QHS SC Last administered on 09/07/17 20:47 ; Admin Dose 44 UNIT; Start 09/07/17 at 21:00 Pantoprazole (Protonix Tab) 40 mg DAILY@06 PO Last administered on 09/08/17 05:11; Admin Dose 40 MG; Start 09/08/17 at 06:00 Miscellaneous Information 1 ea NOTE XX ; Start 09/07/17 at 19:00 Glucose (Glutose) 15 gm Q15M PRN PO DECREASED GLUCOSE; Start 09/07/17 at 19:00 Glucose (Glutose) 22.5 gm Q15M PRN PO DECREASED GLUCOSE; Start 09/07/17 at 19: 00 Dextrose (D50w Syringe) 25 ml Q15M PRN IV DECREASED GLUCOSE; Start 09/07/17 at 19:00 Dextrose (D50w Syringe) 50 ml Q15M PRN IV DECREASED GLUCOSE; Start 09/07/17 at 19:00 Glucagon (Glucagen) 1 mg Q15M PRN IM DECREASED GLUCOSE; Start 09/07/17 at 19: 00 Glucose (Glutose) 15 gm Q15M PRN BUCCAL DECREASED GLUCOSE; Start 09/07/17 at 19:00 Clonidine (Catapres) 0.1 mg Q6 PRN PO ELEVATED BLOOD PRESSURE Last administered on 09/08/17 05:10; Admin Dose 0.1 MG; Start 09/07/17 at 19:30 Acetaminophen 650 mg 650 mg Q6H PRN PO PAIN AND OR ELEVATED TEMP Last administered on 09/08/17 06:52; Admin Dose 650 MG; Start 09/08/17 at 07:00 Magnesium Sulfate (Magnesium Sulfate 2 Gm/50 ml) 50 ml @ 25 mls/hr ONCE ONCE IVPB ; Start 09/08/17 at 09:00; Stop 09/08/17 at 10:59; Status UNWILMA MONZON MD Sep 08, 2017 08:50
[2017-09-08] MEDS: ASPIRIN 81 MG TAB PO SCH (08:56)
[2017-09-08] MEDS: GABAPENTIN 300 MG CAP PO SCH ×3 (08:56→20:13)
[2017-09-08] MEDS: AMLODIPINE 10 MG TAB PO SCH (08:57)
[2017-09-08] MEDS ORDERED: MAGNESIUM SULFATE 2 GM/50 ML 50 ML IVPB ONE (09:00)
[2017-09-08] MEDS: CLOPIDOGREL 75 MG TAB PO SCH (09:03)
[2017-09-08] MEDS: metFORMIN 500 MG TAB PO SCH ×2 (09:03→18:03)
[2017-09-08] MEDS: INSULIN ASPART [NOVOLOG] 3 ML PEN SC SCH ×4 (09:11→20:17)
[2017-09-08] MEDS: ATORVASTATIN 40 MG TAB PO SCH (20:13)
[2017-09-08] MEDS: INSULIN GLARGINE [LANtus] 3 ML PEN SC SCH (20:18)
[2017-09-09] VITALS (9 sets, daily range): BP systolic 141–196; BP diastolic 71–100; PULSE 73–102; RESP 18–20
[2017-09-09] MEDS: SOD CHLORIDE 0.9% 1,000 ML IV SCH ×2 (01:51→18:56)
[2017-09-09] MEDS: ACETAMINOPHEN 325 MG TAB PO PRN (02:16)
[2017-09-09 05:08] LABS: BASOPHILS % 0.3 % (0.0-2.0); EOSINOPHILS # 0.1 10^3/ul (0.0-0.5); EOSINOPHILS % 1.2 % (0.0-7.0); HEMATOCRIT 39.4 % (42.0-52.0); LYMPHOCYTES # 1.4 10^3/ul (0.8-2.9); LYMPHOCYTES % 22.5 % (15.0-51.0); MEAN CORPUSCULAR HEMOGLOBIN 29.7 pg (29.0-33.0); MEAN CORPUSCULAR VOLUME 90.2 fl (82.0-101.0); MONOCYTES % 16.5 % (0.0-11.0); NEUTROPHIL # 3.6 10^3/ul (1.6-7.5); NEUTROPHILS % 59.2 % (39.0-77.0); PLATELET COUNT 179 10^3/UL (140-415); RED BLOOD COUNT 4.37 10^6/ul (4.70-6.10); RED CELL DISTRIBUTION WIDTH 13.1 % (11.5-14.5)
[2017-09-09 05:26] LABS: ALBUMIN 3.2 g/dl (3.3-4.9); ALBUMIN/GLOBULIN RATIO 1.06; BILIRUBIN,INDIRECT 0.3 mg/dl (0-1.1); BILIRUBIN,TOTAL 0.3 mg/dl (0.2-1.3); CALCIUM 8.6 mg/dl (8.4-10.2); CREATININE 0.86 mg/dl (0.61-1.24); MAGNESIUM 1.7 mg/dl (1.7-2.5); POTASSIUM 3.8 mmol/L (3.5-5.1); TOTAL PROTEIN 6.2 g/dl (6.1-8.1)
[2017-09-09] MEDS: PANTOPRAZOLE (EC) 40 MG TAB PO SCH (05:50)
[2017-09-09] MEDS: LEVOTHYROXINE 150 MCG TAB PO SCH (05:50)
[2017-09-09] MEDS: INSULIN ASPART [NOVOLOG] 3 ML PEN SC SCH ×4 (07:50→20:20)
[2017-09-09] MEDS: GABAPENTIN 300 MG CAP PO SCH ×3 (08:51→20:20)
[2017-09-09] MEDS: CLOPIDOGREL 75 MG TAB PO SCH (08:51)
[2017-09-09] MEDS: ASPIRIN 81 MG TAB PO SCH (08:51)
[2017-09-09] MEDS: AMLODIPINE 10 MG TAB PO SCH (08:51)
[2017-09-09] MEDS: metFORMIN 500 MG TAB PO SCH ×2 (08:57→18:14)
--- NOTE | 2017-09-09 09:54 | PN ---
Date/Time of Note Date/Time of Note DATE: 09/09/17 TIME: 09:52 Assessment/Plan VTE Prophylaxis VTE Prophylaxis Intervention: SCD's Lines/Catheters IV Catheter Type (from Nrs): Saline Lock Urinary Cath still in place: No Assessment/Plan Assessment/Plan 1. Nausea, weakness and fatigue suspect viral related. 2. DM, sugars are acceptable 3. Abnl liver tests sec to #1, will check hep serologies 4. Mild cough with nl cxr, will observe 5. Need to mobilize (PT ordered) Subjective 24 Hr Interval Summary Respiratory: cough (is mild and not productive), No pleuritic pain, No shortness of breath, No wheezing Cardiovascular: no complaints Gastrointestinal: no complaints Genitourinary: no complaints Neurologic: No headache Exam/Review of Systems Vital Signs Vitals Vital Signs Date Time Temp Pulse Resp B/P Pulse Ox O2 Delivery O2 Flow Rate FiO2 09/09/17 09:29 Nasal Cannula 2.0 09/09/17 08:05 98.7 74 18 174/91 93 Intake and Output 09/08/17 09/08/17 09/09/17 14:59 22:59 06:59 Intake Total 450 ml 1500 ml 2500 ml Output Total 400 ml Balance 450 ml 1100 ml 2500 ml Exam Neck: No jvd Respiratory: clear to auscultation Cardiovascular: regular rate and rhythm Gastrointestinal: soft Extremities: No edema (and no calf tend) Results Result Diagram: 09/09/17 0437 09/09/17 0437 Results 24 hrs Laboratory Tests Test 09/08/17 13:04 09/08/17 18:02 09/08/17 20:15 09/09/17 01:53 Bedside Glucose 193 198 210 127 Test 09/09/17 04:37 09/09/17 08:50 White Blood Count 6.0 # Red Blood Count 4.37 L Hemoglobin 13.0 L Hematocrit 39.4 L Mean Corpuscular Volume 90.2 Mean Corpuscular Hemoglobin 29.7 Mean Corpuscular Hemoglobin Concent 33.0 Red Cell Distribution Width 13.1 Platelet Count 179 # Mean Platelet Volume 10.0 Neutrophils % 59.2 Lymphocytes % 22.5 Monocytes % 16.5 H Eosinophils % 1.2 Basophils % 0.3 Nucleated Red Blood Cells % 0.0 Neutrophils # 3.6 Lymphocytes # 1.4 Monocytes # 1.0 H Eosinophils # 0.1 Basophils # 0.0 Nucleated Red Blood Cells # 0.0 Sodium Level 137 Potassium Level 3.8 Chloride Level 99 Carbon Dioxide Level 29 Anion Gap 13 Blood Urea Nitrogen 13 Creatinine 0.86 Glucose Level 111 # Calcium Level 8.6 Magnesium Level 1.7 Total Bilirubin 0.3 Direct Bilirubin 0.00 Indirect Bilirubin 0.3 Aspartate Amino Transf (AST/SGOT) 69 H Alanine Aminotransferase (ALT/SGPT) 78 H Alkaline Phosphatase 41 L Total Protein 6.2 Albumin 3.2 L Globulin 3.00 Albumin/Globulin Ratio 1.06 Bedside Glucose 108 Medications Medications Current Medications Sodium Chloride (NS) 1,000 ml @ 100 mls/hr Q10H IV Last administered on 01:51; Admin Dose 100 MLS/HR; Start 09/07/17 at 17:19 Ondansetron HCl (Zofran Inj) 4 mg Q6H PRN IV NAUSEA AND/OR VOMITING Last administered on 09/08/17 04:58; Admin Dose 4 MG; Start 09/07/17 at 17:30 Amlodipine Besylate (Norvasc) 10 mg DAILY PO Last administered on 09/09/17 08 :51; Admin Dose 10 MG; Start 09/08/17 at 09:00 Aspirin (Aspirin) 81 mg DAILY PO Last administered on 09/09/17 08:51; Admin Dose 81 MG; Start 09/08/17 at 09:00 Atorvastatin Calcium (Lipitor) 40 mg QHS PO Last administered on 09/08/17 20: 13; Admin Dose 40 MG; Start 09/07/17 at 21:00 Clopidogrel Bisulfate (plaVIX) 75 mg DAILY PO Last administered on 09/09/17 08:51; Admin Dose 75 MG; Start 09/08/17 at 09:00 Gabapentin (Neurontin) 900 mg TID PO Last administered on 09/09/17 08:51; Admin Dose 900 MG; Start 09/07/17 at 21:00 Insulin Glargine (Lantus) 44 unit QHS SC Last administered on 09/08/17 20:18 ; Admin Dose 44 UNIT; Start 09/07/17 at 21:00 Pantoprazole (Protonix Tab) 40 mg DAILY@06 PO Last administered on 09/09/17 05:50; Admin Dose 40 MG; Start 09/08/17 at 06:00 Miscellaneous Information 1 ea NOTE XX ; Start 09/07/17 at 19:00 Glucose (Glutose) 15 gm Q15M PRN PO DECREASED GLUCOSE; Start 09/07/17 at 19:00 Glucose (Glutose) 22.5 gm Q15M PRN PO DECREASED GLUCOSE; Start 09/07/17 at 19: 00 Dextrose (D50w Syringe) 25 ml Q15M PRN IV DECREASED GLUCOSE; Start 09/07/17 at 19:00 Dextrose (D50w Syringe) 50 ml Q15M PRN IV DECREASED GLUCOSE; Start 09/07/17 at 19:00 Glucagon (Glucagen) 1 mg Q15M PRN IM DECREASED GLUCOSE; Start 09/07/17 at 19: 00 Glucose (Glutose) 15 gm Q15M PRN BUCCAL DECREASED GLUCOSE; Start 09/07/17 at 19:00 Clonidine (Catapres) 0.1 mg Q6 PRN PO ELEVATED BLOOD PRESSURE Last administered on 09/08/17 20:13; Admin Dose 0.1 MG; Start 09/07/17 at 19:30 Acetaminophen (Tylenol Tab) 650 mg Q6H PRN PO PAIN AND OR ELEVATED TEMP Last administered on 09/09/17 02:16; Admin Dose 650 MG; Start 09/08/17 at 07:00 SHIRLEY CUNNINGHAM MD Sep 09, 2017 09:54
--- NOTE | 2017-09-09 11:52 | CONS ---
Date/Time of Note Date/Time of Note DATE: 09/09/17 TIME: 11:47 Assessment/Plan Assessment/Plan Chief Complaint/Hosp Course 72 yo male with uncontrolled diabetes, HTN, chronic vertigo, chronic neuropathy , falls and syncope hx admitted with nausea/vomiting. Recommendations: c/w gabapentin for neuropathy sx are stable at this time, denies any worsening optimize diabetes control may obtain a baseline head CT to rule out any acute abnormalities, Carotid Duplex to r/o stenosis for hx of syncope r/o any vascular causes check B12 PT/OT fu DVT ppx planned for AR once medically stabilized Problems: Consultation Date/Type/Reason Admit Date/Time Sep 07, 2017 at 12:05 Date of Consultation: Sep 09, 2017 Type of Consultation: Neurology Reason for Consultation progressive LE ataxia Referring Provider: WILMA GARIBAY MD Hx of Present Illness 72 year old male with history of longstanding diabetes over 30 years poorly controlled, vertigo with vestibular dysfunction, HTN, postural hypotension, frequent falls and syncopal events admitted with c/o nausea and vomiting. He complains of generalized weakness, which is now improving. He denies hx of CVA. His symptoms of LE weakness and neuropathy are chronic, denies any worsening of his symptoms at this time. Past Surgical History Past Surgical Hx: other Social History Smoking Status: Never smoker Exam/Review of Systems Vital Signs Vitals Vital Signs Date Time Temp Pulse Resp B/P Pulse Ox O2 Delivery O2 Flow Rate FiO2 09/09/17 11:36 92 160/76 09/09/17 10:27 90 Room Air 09/09/17 09:29 2.0 09/09/17 08:05 98.7 18 Intake and Output 09/08/17 09/08/17 09/09/17 14:59 22:59 06:59 Intake Total 450 ml 1500 ml 2500 ml Output Total 400 ml Balance 450 ml 1100 ml 2500 ml Exam Constitutional: alert, oriented, well developed Neurological: VIOLIN MAKER HAND II-XII intact, nl mental status, nl speech, nl strength, other (REDUCED DTR absent in KJ and AJ toes are downgoing, reduce PP and vibratory sensation ) Results Result Diagram: 09/09/17 0437 09/09/17 0437 Results 24 hrs Laboratory Tests Test 09/08/17 13:04 09/08/17 18:02 09/08/17 20:15 09/09/17 01:53 Bedside Glucose 193 198 210 127 Test 09/09/17 04:37 09/09/17 08:50 White Blood Count 6.0 # Red Blood Count 4.37 L Hemoglobin 13.0 L Hematocrit 39.4 L Mean Corpuscular Volume 90.2 Mean Corpuscular Hemoglobin 29.7 Mean Corpuscular Hemoglobin Concent 33.0 Red Cell Distribution Width 13.1 Platelet Count 179 # Mean Platelet Volume 10.0 Neutrophils % 59.2 Lymphocytes % 22.5 Monocytes % 16.5 H Eosinophils % 1.2 Basophils % 0.3 Nucleated Red Blood Cells % 0.0 Neutrophils # 3.6 Lymphocytes # 1.4 Monocytes # 1.0 H Eosinophils # 0.1 Basophils # 0.0 Nucleated Red Blood Cells # 0.0 Sodium Level 137 Potassium Level 3.8 Chloride Level 99 Carbon Dioxide Level 29 Anion Gap 13 Blood Urea Nitrogen 13 Creatinine 0.86 Glucose Level 111 # Calcium Level 8.6 Magnesium Level 1.7 Total Bilirubin 0.3 Direct Bilirubin 0.00 Indirect Bilirubin 0.3 Aspartate Amino Transf (AST/SGOT) 69 H Alanine Aminotransferase (ALT/SGPT) 78 H Alkaline Phosphatase 41 L Total Protein 6.2 Albumin 3.2 L Globulin 3.00 Albumin/Globulin Ratio 1.06 Bedside Glucose 108 Medications Medications Current Medications Sodium Chloride (NS) 1,000 ml @ 50 mls/hr Q20H IV Last administered on 01:51; Admin Dose 100 MLS/HR; Start 09/07/17 at 17:19 Ondansetron HCl (Zofran Inj) 4 mg Q6H PRN IV NAUSEA AND/OR VOMITING Last administered on 09/08/17 04:58; Admin Dose 4 MG; Start 09/07/17 at 17:30 Amlodipine Besylate (Norvasc) 10 mg DAILY PO Last administered on 09/09/17 08 :51; Admin Dose 10 MG; Start 09/08/17 at 09:00 Aspirin (Aspirin) 81 mg DAILY PO Last administered on 09/09/17 08:51; Admin Dose 81 MG; Start 09/08/17 at 09:00 Atorvastatin Calcium (Lipitor) 40 mg QHS PO Last administered on 09/08/17 20: 13; Admin Dose 40 MG; Start 09/07/17 at 21:00 Clopidogrel Bisulfate (plaVIX) 75 mg DAILY PO Last administered on 09/09/17 08:51; Admin Dose 75 MG; Start 09/08/17 at 09:00 Gabapentin (Neurontin) 900 mg TID PO Last administered on 09/09/17 08:51; Admin Dose 900 MG; Start 09/07/17 at 21:00 Insulin Glargine (Lantus) 44 unit QHS SC Last administered on 09/08/17 20:18 ; Admin Dose 44 UNIT; Start 09/07/17 at 21:00 Pantoprazole (Protonix Tab) 40 mg DAILY@06 PO Last administered on 09/09/17 05:50; Admin Dose 40 MG; Start 09/08/17 at 06:00 Miscellaneous Information 1 ea NOTE XX ; Start 09/07/17 at 19:00 Glucose (Glutose) 15 gm Q15M PRN PO DECREASED GLUCOSE; Start 09/07/17 at 19:00 Glucose (Glutose) 22.5 gm Q15M PRN PO DECREASED GLUCOSE; Start 09/07/17 at 19: 00 Dextrose (D50w Syringe) 25 ml Q15M PRN IV DECREASED GLUCOSE; Start 09/07/17 at 19:00 Dextrose (D50w Syringe) 50 ml Q15M PRN IV DECREASED GLUCOSE; Start 09/07/17 at 19:00 Glucagon (Glucagen) 1 mg Q15M PRN IM DECREASED GLUCOSE; Start 09/07/17 at 19: 00 Glucose (Glutose) 15 gm Q15M PRN BUCCAL DECREASED GLUCOSE; Start 09/07/17 at 19:00 Clonidine (Catapres) 0.1 mg Q6 PRN PO ELEVATED BLOOD PRESSURE Last administered on 09/09/17 11:46; Admin Dose 0.1 MG; Start 09/07/17 at 19:30 Acetaminophen (Tylenol Tab) 650 mg Q6H PRN PO PAIN AND OR ELEVATED TEMP Last administered on 09/09/17 02:16; Admin Dose 650 MG; Start 09/08/17 at 07:00 CHELSEY STINSON MD Sep 09, 2017 11:52
--- NOTE | 2017-09-09 14:43 | RADRPT ---
PROCEDURE: Carotid ultrasound CLINICAL INDICATION: Syncope, carotid bruits TECHNIQUE: Shea scale, color doppler, spectral doppler ultrasound of the bilateral carotid and olive tebral arteries. This study indirectly references the measurement of the distal ICA diameter as the denominator for s tenosis measurement. Validated velocity measurements with angiographic measurements, velocity criter ia are extrapolated from diameter data as defined by: *Cartoid artery stenosis: shea-scale and Doppl er US diagnosis. Society of Radiologists in Ultrasound Consensus Conference. Radiology 2003; 229: 34 0-346. SRU Consensus Conference Criteria for the Diagnosis of Carotid Artery Stenosis* Degree of Stenosis, % ICA PSV, cm/sec Plaque Estimate, % ICA/CCA PSV Ratio Normal <125 None <2.0 <50 <125 <50 <2.0 50 69 125-230 >50 2.0-4.0 >70 but less than near occlusion >230 >50 <4.0 Near occlusion High, low, or undetectable Visible Variable Total occlusion Undetectable Visible, no detectable lumen Not applicable COMPARISON: US NECK 11/24/2015 FINDINGS: Location Right CCA49 - 85 cm/sec Prox ICA 22 cm/sec Mid ICA23 cm/sec Dist ICA39 cm/sec ECA57 cm/sec ICA/CCA0 point a Left CCA68 - 78 cm/sec Prox ICA 35 cm/sec Mid ICA40 cm/sec Dist ICA43 cm/sec ECA72 cm/sec ICA/CCA0.6 Plaque burden: Minimal bilateral carotid plaques are unchanged. Antegrade flow is seen within the vertebral arteries bilaterally. IMPRESSION: No evidence of a hemodynamically significant carotid stenosis. RPTAT: AADD .Nico Saul MD, Date Time Electronically viewed and signed by .Nico Saul MD, on 09/09/2017 14:42 .B/
--- NOTE | 2017-09-09 14:46 | RADRPT ---
PROCEDURE: Ultrasound of the bilateral lower extremity venous system. CLINICAL INDICATION: Bilateral leg pain and swelling, deep venous thrombosis TECHNIQUE: Shea scale with and without compression, color doppler, spectral doppler of the venous system of the bilateral lower extremities was performed. Venous augmentation maneuvers were utilized . COMPARISON: No prior studies are available for comparison. FINDINGS: Right: Common femoral vein: Patent. Femoral vein: Patent. Popliteal vein: Patent. Calf veins: Patent. No soft tissue abnormalities are identified. Left: Common femoral vein: Patent. Femoral vein: Patent. Popliteal vein: Patent. Calf veins: Patent. No soft tissue abnormalities are identified. IMPRESSION: No evidence of a deep vein thrombosis within the bilateral lower extremities. RPTAT: AADD .Nico Saul MD, MD Date Time Electronically viewed and signed by .Nico Saul MD, on 09/09/2017 14:45 .B/
--- NOTE | 2017-09-09 15:01 | RADRPT ---
PROCEDURE: CT Brain without contrast. CLINICAL INDICATION: Ataxia, fall, syncope. TECHNIQUE: A CT of the brain without contrast was performed utilizing axial sections from the skul l base through the vertex. One or more the following does reduction techniques were utilized: Automa néstor exposure control, adjustment of the mA/ or kV according to patient's size, or use of iterative r econstruction technique. Total exam CTDIvol is 44.19 MGy and DLP is 810.25 mGy-cm. DICOM images are available. COMPARISON: Brain CT 02/08/2017. FINDINGS: The ventricles and sulci are mildly prominent indicative of volume loss. There is mild cerebellar vo lume loss. There is no intracranial hemorrhage, mass effect or midline shift. No abnormal intra-ax ial or extra-axial fluid collections are seen. The burks/white matter differentiation is well preserv ed. There are mild to moderate foci of hypoattenuation in the white matter, which are nonspecific in janiya ology but likely reflect chronic small vessel ischemic changes. There are mild to moderate intracran ial vascular calcifications consistent with atherosclerosis. Small old lacunar infarcts are noted i n the bilateral lentiform nuclei. The visualized paranasal sinuses demonstrate mild to moderate sca ttered mucosal thickening with small fluid levels in bilateral maxillary sinuses and partial opacifi cation of ethmoid air cells. The mastoid air cells are essentially clear. IMPRESSION: 1. No acute intracranial hemorrhage, transcortical infarction or mass effect. 2. Mild to moderate intracranial atherosclerosis and chronic small vessel ischemic changes. 3. Small old lacunar infarcts in the bilateral lentiform nuclei. 4. Mild generalized cerebral and cerebellar volume loss. 5. Mild to moderate paranasal sinus disease with associated fluid levels. RPTAT: HH .Sander Jackson MD, MD Date Time Electronically viewed and signed by .Sander Jackson MD, MD on 09/09/2017 15:01 .N/
[2017-09-09] MEDS: ATORVASTATIN 40 MG TAB PO SCH (20:20)
[2017-09-09] MEDS: INSULIN GLARGINE [LANtus] 3 ML PEN SC SCH (20:23)
[2017-09-10 01:49] VITALS: BP 164/89; RESP 18
[2017-09-10 05:08] LABS: HAAIG REFLEX REFLEX FILED
[2017-09-10 05:16] LABS: BASOPHILS % 0.3 % (0.0-2.0); EOSINOPHILS % 0.1 % (0.0-7.0); HEMATOCRIT 41.7 % (42.0-52.0); HEMOGLOBIN 13.8 g/dl (14.0-18.0); LYMPHOCYTES # 1.8 10^3/ul (0.8-2.9); LYMPHOCYTES % 25.2 % (15.0-51.0); MEAN CORPUSCULAR HEMOGLOBIN 29.7 pg (29.0-33.0); MEAN CORPUSCULAR HGB CONC 33.1 g/dl (32.0-37.0); MEAN CORPUSCULAR VOLUME 89.9 fl (82.0-101.0); MEAN PLATELET VOLUME 9.9 fl (7.4-10.4); MONOCYTES % 14.1 % (0.0-11.0); NEUTROPHIL # 4.2 10^3/ul (1.6-7.5); NEUTROPHILS % 59.9 % (39.0-77.0); PLATELET COUNT 203 10^3/UL (140-415); RED BLOOD COUNT 4.64 10^6/ul (4.70-6.10); RED CELL DISTRIBUTION WIDTH 12.9 % (11.5-14.5)
[2017-09-10 05:43] LABS: ALBUMIN 3.5 g/dl (3.3-4.9); ALBUMIN/GLOBULIN RATIO 1.12; BILIRUBIN,INDIRECT 0.4 mg/dl (0-1.1); BILIRUBIN,TOTAL 0.4 mg/dl (0.2-1.3); CALCIUM 8.7 mg/dl (8.4-10.2); CREATININE 0.86 mg/dl (0.61-1.24); POTASSIUM 3.6 mmol/L (3.5-5.1); TOTAL PROTEIN 6.6 g/dl (6.1-8.1)
[2017-09-10 05:44] LABS: MAGNESIUM 1.6 mg/dl (1.7-2.5); PHOSPHORUS 3.9 mg/dl (2.5-4.9)
[2017-09-10] MEDS: PANTOPRAZOLE (EC) 40 MG TAB PO SCH (06:09)
[2017-09-10] MEDS: LEVOTHYROXINE 150 MCG TAB PO SCH (06:09)
[2017-09-10 07:52] LABS: HEPATITIS B CORE ANTIBODY NEGATIVE (NEGATIVE)
[2017-09-10 07:55] VITALS: BP 166/89; RESP 20
[2017-09-10] MEDS: CLOPIDOGREL 75 MG TAB PO SCH (08:09)
[2017-09-10] MEDS: ASPIRIN 81 MG TAB PO SCH (08:09)
[2017-09-10] MEDS: GABAPENTIN 300 MG CAP PO SCH ×3 (08:10→20:18)
[2017-09-10] MEDS: AMLODIPINE 10 MG TAB PO SCH (08:10)
[2017-09-10 09:00] VITALS: BP 177/89
--- NOTE | 2017-09-10 09:22 | PN ---
Date/Time of Note Date/Time of Note DATE: 09/10/17 TIME: 09:18 Assessment/Plan VTE Prophylaxis VTE Prophylaxis Intervention: other Lines/Catheters IV Catheter Type (from Nrs): Peripheral IV Urinary Cath still in place: No Assessment/Plan Assessment/Plan 1. Presenting sxs on admit have resolved. 2. Mild confusion noted, neuro eval appreciated, ct brain and carotid test noted , will observe 3. Oxygen Sat is nl this am, will observe 4. BP is elevated, diovan added and Catapres chanted to scheduled 5. DM, sugars are acceptable 6. Await case management eval and discussion with family 7. Hx sleep apnea, will ask respir to set up and family to bring cpap device Subjective 24 Hr Interval Summary Respiratory: No cough Cardiovascular: No chest pain Gastrointestinal: no complaints Genitourinary: no complaints Neurologic: No headache Exam/Review of Systems Vital Signs Vitals Vital Signs Date Time Temp Pulse Resp B/P Pulse Ox O2 Delivery O2 Flow Rate FiO2 09/10/17 07:55 99.7 80 20 166/89 94 09/09/17 20:00 Nasal Cannula 2.0 Intake and Output 09/09/17 09/09/17 09/10/17 15:00 23:00 07:00 Intake Total 500 ml 1500 ml 620 ml Output Total 1750 ml 800 ml Balance 500 ml -250 ml -180 ml Exam Neck: No jvd Respiratory: clear to auscultation Cardiovascular: regular rate and rhythm Extremities: No edema Neurological: focal weakness (mild confusion regarding recent events, oreinted to place and time) Results Result Diagram: 09/10/17 0452 09/10/17 0452 Results 24 hrs Laboratory Tests Test 09/09/17 12:26 09/09/17 18:13 09/09/17 20:19 09/10/17 04:52 Bedside Glucose 173 201 159 White Blood Count 7.0 Red Blood Count 4.64 L Hemoglobin 13.8 L Hematocrit 41.7 L Mean Corpuscular Volume 89.9 Mean Corpuscular Hemoglobin 29.7 Mean Corpuscular Hemoglobin Concent 33.1 Red Cell Distribution Width 12.9 Platelet Count 203 Mean Platelet Volume 9.9 Neutrophils % 59.9 Lymphocytes % 25.2 Monocytes % 14.1 H Eosinophils % 0.1 Basophils % 0.3 Nucleated Red Blood Cells % 0.0 Neutrophils # 4.2 Lymphocytes # 1.8 Monocytes # 1.0 H Eosinophils # 0.0 Basophils # 0.0 Nucleated Red Blood Cells # 0.0 Erythrocyte Sedimentation Rate 4.0 Sodium Level 137 Potassium Level 3.6 Chloride Level 96 L Carbon Dioxide Level 30 Anion Gap 15 Blood Urea Nitrogen 11 Creatinine 0.86 Glucose Level 119 Calcium Level 8.7 Total Bilirubin 0.4 Direct Bilirubin 0.00 Indirect Bilirubin 0.4 Aspartate Amino Transf (AST/SGOT) 71 H Alanine Aminotransferase (ALT/SGPT) 79 H Alkaline Phosphatase 48 Total Protein 6.6 Albumin 3.5 Globulin 3.10 Albumin/Globulin Ratio 1.12 Test 09/10/17 04:53 09/10/17 08:04 Phosphorus Level 3.9 Magnesium Level 1.6 L Hepatitis B Surface Antigen NEGATIVE Hepatitis B Core Total Antibody NEGATIVE Hepatitis C Antibody NEGATIVE Bedside Glucose 96 Medications Medications Current Medications Sodium Chloride (NS) 1,000 ml @ 50 mls/hr Q20H IV Last administered on 18:56; Admin Dose 50 MLS/HR; Start 09/07/17 at 17:19 Ondansetron HCl (Zofran Inj) 4 mg Q6H PRN IV NAUSEA AND/OR VOMITING Last administered on 09/08/17 04:58; Admin Dose 4 MG; Start 09/07/17 at 17:30 Amlodipine Besylate (Norvasc) 10 mg DAILY PO Last administered on 09/10/17 08 :10; Admin Dose 10 MG; Start 09/08/17 at 09:00 Aspirin (Aspirin) 81 mg DAILY PO Last administered on 09/10/17 08:09; Admin Dose 81 MG; Start 09/08/17 at 09:00 Atorvastatin Calcium (Lipitor) 40 mg QHS PO Last administered on 09/09/17 20: 20; Admin Dose 40 MG; Start 09/07/17 at 21:00 Clopidogrel Bisulfate (plaVIX) 75 mg DAILY PO Last administered on 09/10/17 08:09; Admin Dose 75 MG; Start 09/08/17 at 09:00 Gabapentin (Neurontin) 900 mg TID PO Last administered on 09/10/17 08:10; Admin Dose 900 MG; Start 09/07/17 at 21:00 Insulin Glargine (Lantus) 44 unit QHS SC Last administered on 12/13/17at 20:23 ; Admin Dose 44 UNIT; Start 09/07/17 at 21:00 Pantoprazole (Protonix Tab) 40 mg DAILY@06 PO Last administered on 09/10/17 06:09; Admin Dose 40 MG; Start 09/08/17 at 06:00 Miscellaneous Information 1 ea NOTE XX ; Start 09/07/17 at 19:00 Glucose (Glutose) 15 gm Q15M PRN PO DECREASED GLUCOSE; Start 09/07/17 at 19:00 Glucose (Glutose) 22.5 gm Q15M PRN PO DECREASED GLUCOSE; Start 09/07/17 at 19: 00 Dextrose (D50w Syringe) 25 ml Q15M PRN IV DECREASED GLUCOSE; Start 09/07/17 at 19:00 Dextrose (D50w Syringe) 50 ml Q15M PRN IV DECREASED GLUCOSE; Start 09/07/17 at 19:00 Glucagon (Glucagen) 1 mg Q15M PRN IM DECREASED GLUCOSE; Start 09/07/17 at 19: 00 Glucose (Glutose) 15 gm Q15M PRN BUCCAL DECREASED GLUCOSE; Start 09/07/17 at 19:00 Clonidine (Catapres) 0.1 mg Q6 PRN PO ELEVATED BLOOD PRESSURE Last administered on 09/09/17 11:46; Admin Dose 0.1 MG; Start 09/07/17 at 19:30 Acetaminophen (Tylenol Tab) 650 mg Q6H PRN PO PAIN AND OR ELEVATED TEMP Last administered on 09/09/17 02:16; Admin Dose 650 MG; Start 09/08/17 at 07:00 SHIRLEY CUNNINGHAM MD Sep 10, 2017 09:22
[2017-09-10] MEDS ORDERED: POTASSIUM CHLORIDE (SR) 10 MEQ TAB PO ONE (09:30)
[2017-09-10] MEDS: metFORMIN 500 MG TAB PO SCH ×2 (09:44→17:35)
[2017-09-10] MEDS: VALSARTAN 80 MG TAB PO SCH (10:30)
[2017-09-10 11:00] VITALS: BP 148/75; PULSE 87
[2017-09-10] MEDS: INSULIN ASPART [NOVOLOG] 3 ML PEN SC SCH ×2 (11:10→17:37)
--- NOTE | 2017-09-10 11:27 | CONS ---
Date/Time of Note Date/Time of Note DATE: 09/10/17 TIME: 11:25 Consult Date/Type/Reason Admit Date/Time Sep 07, 2017 at 12:05 Initial Consult Date 09/09/17 Type of Consultation: Neurology Reason for Consultation LE ataxia, peripheral neuropathy Ordering Provider: WILMA GARIBAY MD Subjective symptoms remain stable c/o generalized weakness Objective Vital Signs Date Time Temp Pulse Resp B/P Pulse Ox O2 Delivery O2 Flow Rate FiO2 09/10/17 10:09 Nasal Cannula 2.0 09/10/17 07:55 99.7 80 20 166/89 94 Intake and Output 09/09/17 09/09/17 09/10/17 15:00 23:00 07:00 Intake Total 500 ml 1500 ml 620 ml Output Total 1750 ml 800 ml Balance 500 ml -250 ml -180 ml Exam Constitutional: alert, oriented, well developed Neurological: LUMBER TALLIER II-XII intact, nl mental status, nl speech, nl strength, other (REDUCED DTR absent in KJ and AJ toes are downgoing, reduce PP and vibratory sensation ) Results/Medications Result Diagram: 09/10/17 0452 09/10/17 0452 Results 24 hrs Laboratory Tests Test 09/09/17 12:26 09/09/17 18:13 09/09/17 20:19 09/10/17 04:52 Bedside Glucose 173 201 159 White Blood Count 7.0 Red Blood Count 4.64 L Hemoglobin 13.8 L Hematocrit 41.7 L Mean Corpuscular Volume 89.9 Mean Corpuscular Hemoglobin 29.7 Mean Corpuscular Hemoglobin Concent 33.1 Red Cell Distribution Width 12.9 Platelet Count 203 Mean Platelet Volume 9.9 Neutrophils % 59.9 Lymphocytes % 25.2 Monocytes % 14.1 H Eosinophils % 0.1 Basophils % 0.3 Nucleated Red Blood Cells % 0.0 Neutrophils # 4.2 Lymphocytes # 1.8 Monocytes # 1.0 H Eosinophils # 0.0 Basophils # 0.0 Nucleated Red Blood Cells # 0.0 Erythrocyte Sedimentation Rate 4.0 Sodium Level 137 Potassium Level 3.6 Chloride Level 96 L Carbon Dioxide Level 30 Anion Gap 15 Blood Urea Nitrogen 11 Creatinine 0.86 Glucose Level 119 Calcium Level 8.7 Total Bilirubin 0.4 Direct Bilirubin 0.00 Indirect Bilirubin 0.4 Aspartate Amino Transf (AST/SGOT) 71 H Alanine Aminotransferase (ALT/SGPT) 79 H Alkaline Phosphatase 48 Total Protein 6.6 Albumin 3.5 Globulin 3.10 Albumin/Globulin Ratio 1.12 Test 09/10/17 04:53 09/10/17 08:04 Phosphorus Level 3.9 Magnesium Level 1.6 L Hepatitis B Surface Antigen NEGATIVE Hepatitis B Core Total Antibody NEGATIVE Hepatitis C Antibody NEGATIVE Bedside Glucose 96 Medications Current Medications Ondansetron HCl (Zofran Inj) 4 mg Q6H PRN IV NAUSEA AND/OR VOMITING Last administered on 09/08/17 04:58; Admin Dose 4 MG; Start 09/07/17 at 17:30 Amlodipine Besylate (Norvasc) 10 mg DAILY PO Last administered on 09/10/17 08 :10; Admin Dose 10 MG; Start 09/08/17 at 09:00 Aspirin (Aspirin) 81 mg DAILY PO Last administered on 09/10/17 08:09; Admin Dose 81 MG; Start 09/08/17 at 09:00 Atorvastatin Calcium (Lipitor) 40 mg QHS PO Last administered on 09/09/17 20: 20; Admin Dose 40 MG; Start 09/07/17 at 21:00 Clopidogrel Bisulfate (plaVIX) 75 mg DAILY PO Last administered on 09/10/17 08:09; Admin Dose 75 MG; Start 09/08/17 at 09:00 Gabapentin (Neurontin) 900 mg TID PO Last administered on 09/10/17 08:10; Admin Dose 900 MG; Start 09/07/17 at 21:00 Insulin Glargine (Lantus) 44 unit QHS SC Last administered on 09/09/17 20:23 ; Admin Dose 44 UNIT; Start 09/07/17 at 21:00 Pantoprazole (Protonix Tab) 40 mg DAILY@06 PO Last administered on 09/10/17 06:09; Admin Dose 40 MG; Start 09/08/17 at 06:00 Miscellaneous Information 1 ea NOTE XX ; Start 09/07/17 at 19:00 Glucose (Glutose) 15 gm Q15M PRN PO DECREASED GLUCOSE; Start 09/07/17 at 19:00 Glucose (Glutose) 22.5 gm Q15M PRN PO DECREASED GLUCOSE; Start 09/07/17 at 19: 00 Dextrose (D50w Syringe) 25 ml Q15M PRN IV DECREASED GLUCOSE; Start 09/07/17 at 19:00 Dextrose (D50w Syringe) 50 ml Q15M PRN IV DECREASED GLUCOSE; Start 09/07/17 at 19:00 Glucagon (Glucagen) 1 mg Q15M PRN IM DECREASED GLUCOSE; Start 09/07/17 at 19: 00 Glucose (Glutose) 15 gm Q15M PRN BUCCAL DECREASED GLUCOSE; Start 09/07/17 at 19:00 Acetaminophen (Tylenol Tab) 650 mg Q6H PRN PO PAIN AND OR ELEVATED TEMP Last administered on 09/09/17t 02:16; Admin Dose 650 MG; Start 09/08/17 at 07:00 Clonidine (Catapres) 0.1 mg Q6 PO ; Start 09/10/17 at 12:00 Valsartan (Diovan) 80 mg DAILY PO ; Start 09/10/17 at 09:30 Assessment/Plan Chief Complaint/Hosp Course 72 yo male with uncontrolled diabetes, HTN, chronic vertigo, chronic neuropathy , falls and syncope hx admitted with nausea/vomiting. Recommendations: c/w gabapentin for neuropathy sx are stable at this time, denies any worsening optimize diabetes control Head CT and Duplex show no acute process, chronic microvascular changes, no stenosis check B12 : 328, would recommend high dose supplementation goal B12> 500 PT/OT fu DVT ppx planned for AR once medically stabilized Problems: CHELSEY STINSON MD Sep 10, 2017 11:27
[2017-09-10] MEDS: CYANOCOBALAMIN 1000 MCG INJ IM SCH (15:17)
[2017-09-10] MEDS: ACETAMINOPHEN 325 MG TAB PO PRN ×2 (16:37→23:33)
--- NOTE | 2017-09-10 16:54 | RADRPT ---
PROCEDURE: MRI Brain without contrast. CLINICAL INDICATION: Weakness, syncope. TECHNIQUE: An MRI of the brain was performed utilizing the following sequences: Sagittal and axial T1 weighted, axial T2 weighted, coronal and T1 3-D FSPGR, axial diffusion weighted with ADC mapping , coronal GRE, and axial FLAIR. COMPARISON: Brain CT 09/09/2017. FINDINGS: No diffusion weighted abnormalities are seen to suggest the presence of acute ischemia or recent inf arct. No hypointense signal abnormalities are seen on the GRE images to suggest the presence of blo od degradation products. There is no evidence of intracranial hemorrhage, mass effect, or midline s hift. No extra-axial fluid collections are seen. The ventricles and sulci are mildly enlarged indica tive of volume loss. Moderate right and mild left hippocampal volume loss is noted There are mild to moderate patchy and scattered foci of T2 FLAIR hyperintensity in the periventricul ar, deep, and subcortical white matter, which are nonspecific in etiology but likely reflect chronic small vessel ischemic changes. Small T2 hyperintense foci are noted in bilateral lentiform nuclei which likely represent dilated pe rivascular spaces versus old lacunar infarcts. No abnormal intracranial vascular flow void is noted. The visualized paranasal sinuses demonstrate m ild to moderate scattered mucosal thickening with small fluid levels in bilateral maxillary sinuses and partial opacification of ethmoid air cells. There are probable mucous retention cysts in the lef t maxillary sinus. The mastoid air cells demonstrate trace effusion bilaterally. IMPRESSION: 1. No acute intracranial hemorrhage, transcortical infarction or mass effect. 2. Mild to moderate chronic small vessel ischemic changes. 3. Small old lacunar infarcts versus dilated perivascular spaces in the bilateral lentiform nuclei. 4. Mild generalized cerebral and cerebellar volume loss. Moderate right and mild left hippocampal v olume loss. 5. Mild to moderate paranasal sinus disease with associated fluid levels. RPTAT: HH .Sander Jackson MD, MD Date Time Electronically viewed and signed by .Sander Jackson MD, MD on 09/10/2017 12:46 .N/
[2017-09-10 17:30] VITALS: BP 148/75; PULSE 79
[2017-09-10] MEDS: ATORVASTATIN 40 MG TAB PO SCH (20:17)
[2017-09-10 20:24] VITALS: BP 145/85; RESP 20
[2017-09-10] MEDS: INSULIN GLARGINE [LANtus] 3 ML PEN SC SCH (20:27)
[2017-09-10] MEDS: ZOLPIDEM 5 MG TAB PO PRN (23:33)
[2017-09-11 02:42] VITALS: BP 144/81; RESP 20
[2017-09-11] MEDS: LEVOTHYROXINE 150 MCG TAB PO SCH (05:20)
[2017-09-11] MEDS: PANTOPRAZOLE (EC) 40 MG TAB PO SCH (05:20)
[2017-09-11 05:22] LABS: BASOPHILS % 0.4 % (0.0-2.0); EOSINOPHILS % 0.4 % (0.0-7.0); HEMATOCRIT 41.2 % (42.0-52.0); HEMOGLOBIN 13.9 g/dl (14.0-18.0); LYMPHOCYTES # 2.1 10^3/ul (0.8-2.9); LYMPHOCYTES % 27.9 % (15.0-51.0); MEAN CORPUSCULAR HEMOGLOBIN 29.8 pg (29.0-33.0); MEAN CORPUSCULAR HGB CONC 33.7 g/dl (32.0-37.0); MEAN CORPUSCULAR VOLUME 88.4 fl (82.0-101.0); MEAN PLATELET VOLUME 10.2 fl (7.4-10.4); MONOCYTE # 0.9 10^3/ul (0.3-0.9); MONOCYTES % 12.1 % (0.0-11.0); NEUTROPHIL # 4.3 10^3/ul (1.6-7.5); NEUTROPHILS % 58.9 % (39.0-77.0); PLATELET COUNT 197 10^3/UL (140-415); RED BLOOD COUNT 4.66 10^6/ul (4.70-6.10); RED CELL DISTRIBUTION WIDTH 13.2 % (11.5-14.5); WHITE BLOOD COUNT 7.3 10^3/ul (4.8-10.8)
[2017-09-11 06:08] LABS: CALCIUM 8.7 mg/dl (8.4-10.2); CREATININE 1.04 mg/dl (0.61-1.24); MAGNESIUM 1.8 mg/dl (1.7-2.5); PHOSPHORUS 3.9 mg/dl (2.5-4.9); POTASSIUM 3.9 mmol/L (3.5-5.1)
[2017-09-11] MEDS: INSULIN ASPART [NOVOLOG] 3 ML PEN SC SCH ×3 (07:20→17:25)
[2017-09-11 08:01] VITALS: BP 135/65; RESP 20
[2017-09-11] MEDS: metFORMIN 500 MG TAB PO SCH ×2 (09:03→18:18)
[2017-09-11] MEDS: GABAPENTIN 300 MG CAP PO SCH ×3 (09:04→20:53)
[2017-09-11] MEDS: VALSARTAN 80 MG TAB PO SCH (09:04)
[2017-09-11] MEDS: AMLODIPINE 10 MG TAB PO SCH (09:04)
[2017-09-11] MEDS: ASPIRIN 81 MG TAB PO SCH (09:04)
[2017-09-11] MEDS: CLOPIDOGREL 75 MG TAB PO SCH (09:04)
[2017-09-11] MEDS: CYANOCOBALAMIN 1000 MCG INJ IM SCH (09:06)
--- NOTE | 2017-09-11 09:49 | PN ---
Date/Time of Note Date/Time of Note DATE: 09/11/17 TIME: 09:46 Assessment/Plan VTE Prophylaxis VTE Prophylaxis Intervention: SCD's Lines/Catheters IV Catheter Type (from Nrs): Peripheral IV Urinary Cath still in place: No Assessment/Plan Assessment/Plan 1. N and V has resolved. 2. Abnl mri and Ct of sinuses along with throat congestion---ent to see, mucinex stated, abx per ENT 3. Confusion resolved, MRI of the brain noted 4. BP control has improved. 5. CHO control is reasonable 6. Hopeful transfer to acute rehab today Subjective 24 Hr Interval Summary ENT: other (feels some congestion in his throat) Respiratory: cough (is mild) Cardiovascular: No chest pain Gastrointestinal: no complaints Genitourinary: no complaints Neurologic: No headache Exam/Review of Systems Vital Signs Vitals Vital Signs Date Time Temp Pulse Resp B/P Pulse Ox O2 Delivery O2 Flow Rate FiO2 09/11/17 08:01 98.8 78 20 135/65 100 09/10/17 20:00 Nasal Cannula 2.0 Intake and Output 09/10/17 09/10/17 09/11/17 15:00 23:00 07:00 Intake Total 880 ml 520 ml Balance 880 ml 520 ml Exam Neck: No jvd Respiratory: clear to auscultation Cardiovascular: regular rate and rhythm Gastrointestinal: soft Extremities: No edema (and no calf tend) Neurological: other (much more alert and not confused) Results Result Diagram: 09/11/17 0432 09/11/17 0432 Results 24 hrs Laboratory Tests Test 09/10/17 12:29 09/10/17 17:27 09/10/17 20:16 09/11/17 04:32 Bedside Glucose 144 151 121 White Blood Count 7.3 Red Blood Count 4.66 L Hemoglobin 13.9 L Hematocrit 41.2 L Mean Corpuscular Volume 88.4 Mean Corpuscular Hemoglobin 29.8 Mean Corpuscular Hemoglobin Concent 33.7 Red Cell Distribution Width 13.2 Platelet Count 197 Mean Platelet Volume 10.2 Neutrophils % 58.9 Lymphocytes % 27.9 Monocytes % 12.1 H Eosinophils % 0.4 Basophils % 0.4 Nucleated Red Blood Cells % 0.0 Neutrophils # 4.3 Lymphocytes # 2.1 Monocytes # 0.9 Eosinophils # 0.0 Basophils # 0.0 Nucleated Red Blood Cells # 0.0 Sodium Level 137 Potassium Level 3.9 Chloride Level 98 Carbon Dioxide Level 30 Anion Gap 13 Blood Urea Nitrogen 13 Creatinine 1.04 Glucose Level 99 Calcium Level 8.7 Phosphorus Level 3.9 Magnesium Level 1.8 Test 09/11/17 08:33 Bedside Glucose 112 Medications Medications Current Medications Ondansetron HCl (Zofran Inj) 4 mg Q6H PRN IV NAUSEA AND/OR VOMITING Last administered on 09/08/17 04:58; Admin Dose 4 MG; Start 09/07/17 at 17:30 Amlodipine Besylate (Norvasc) 10 mg DAILY PO Last administered on 09/11/17 09 :04; Admin Dose 10 MG; Start 09/08/17 at 09:00 Aspirin (Aspirin) 81 mg DAILY PO Last administered on 09/11/17 09:04; Admin Dose 81 MG; Start 09/08/17 at 09:00 Atorvastatin Calcium (Lipitor) 40 mg QHS PO Last administered on 09/10/17 20: 17; Admin Dose 40 MG; Start 09/07/17 at 21:00 Clopidogrel Bisulfate (plaVIX) 75 mg DAILY PO Last administered on 09/11/17 09:04; Admin Dose 75 MG; Start 09/08/17 at 09:00 Gabapentin (Neurontin) 900 mg TID PO Last administered on 09/11/17 09:04; Admin Dose 900 MG; Start 09/07/17 at 21:00 Insulin Glargine (Lantus) 44 unit QHS SC Last administered on 09/10/17 20:27 ; Admin Dose 44 UNIT; Start 09/07/17 at 21:00 Pantoprazole (Protonix Tab) 40 mg DAILY@06 PO Last administered on 09/11/17 05:20; Admin Dose 40 MG; Start 09/08/17 at 06:00 Miscellaneous Information 1 ea NOTE XX ; Start 09/07/17 at 19:00 Glucose (Glutose) 15 gm Q15M PRN PO DECREASED GLUCOSE; Start 09/07/17 at 19:00 Glucose (Glutose) 22.5 gm Q15M PRN PO DECREASED GLUCOSE; Start 09/07/17 at 19: 00 Dextrose (D50w Syringe) 25 ml Q15M PRN IV DECREASED GLUCOSE; Start 09/07/17 at 19:00 Dextrose (D50w Syringe) 50 ml Q15M PRN IV DECREASED GLUCOSE; Start 09/07/17 at 19:00 Glucagon (Glucagen) 1 mg Q15M PRN IM DECREASED GLUCOSE; Start 09/07/17 at 19: 00 Glucose (Glutose) 15 gm Q15M PRN BUCCAL DECREASED GLUCOSE; Start 09/07/17 at 19:00 Clonidine (Catapres) 0.1 mg Q6 PO Last administered on 09/10/17 23:33; Admin Dose 0.1 MG; Start 09/10/17 at 12:00 Valsartan (Diovan) 80 mg DAILY PO Last administered on 09/11/17 09:04; Admin Dose 80 MG; Start 09/10/17 at 09:30 Cyanocobalamin (Vitamin B12 Inj) 1,000 mcg DAILY IM Last administered on 09:06; Admin Dose 1,000 MCG; Start 09/10/17 at 13:00 Acetaminophen (Tylenol Tab) 650 mg Q4H PRN PO PAIN AND OR ELEVATED TEMP Last administered on 09/10/17 23:33; Admin Dose 650 MG; Start 09/10/17 at 21:00 Zolpidem Tartrate (Ambien) 5 mg HS PRN PO INSOMNIA Last administered on 23:33; Admin Dose 5 MG; Start 09/10/17 at 23:00 SHIRLEY CUNNINGHAM MD Sep 11, 2017 09:49
[2017-09-11] MEDS: GUAIFENESIN LA 600 MG TABSR PO SCH ×2 (11:36→20:53)
[2017-09-11 15:17] VITALS: BP 140/72; RESP 18
[2017-09-11] MEDS: ACETAMINOPHEN 325 MG TAB PO PRN ×2 (17:06→20:53)
[2017-09-11 19:20] VITALS: BP 114/71; RESP 19
[2017-09-11] MEDS: ATORVASTATIN 40 MG TAB PO SCH (20:53)
[2017-09-11] MEDS: INSULIN GLARGINE [LANtus] 3 ML PEN SC SCH (21:48)
[2017-09-12 01:55] VITALS: BP 150/75; RESP 19
[2017-09-12] MEDS: ACETAMINOPHEN 325 MG TAB PO PRN ×4 (03:45→15:24)
[2017-09-12] MEDS: PANTOPRAZOLE (EC) 40 MG TAB PO SCH (06:19)
[2017-09-12] MEDS: INSULIN ASPART [NOVOLOG] 3 ML PEN SC SCH ×3 (07:20→17:25)
[2017-09-12 08:04] VITALS: BP 125/73; RESP 20
[2017-09-12] MEDS: LEVOTHYROXINE 150 MCG TAB PO SCH (08:10)
[2017-09-12] MEDS: GABAPENTIN 300 MG CAP PO SCH ×3 (08:47→20:12)
[2017-09-12] MEDS: ASPIRIN 81 MG TAB PO SCH (08:47)
[2017-09-12] MEDS: CYANOCOBALAMIN 1000 MCG INJ IM SCH (08:47)
[2017-09-12] MEDS: GUAIFENESIN LA 600 MG TABSR PO SCH (08:47)
[2017-09-12] MEDS: metFORMIN 500 MG TAB PO SCH ×2 (08:47→18:11)
[2017-09-12] MEDS: CLOPIDOGREL 75 MG TAB PO SCH (08:47)
[2017-09-12] MEDS: VALSARTAN 80 MG TAB PO SCH (08:48)
[2017-09-12] MEDS: AMLODIPINE 10 MG TAB PO SCH (08:49)
--- NOTE | 2017-09-12 10:41 | PN ---
Date/Time of Note Date/Time of Note DATE: 09/12/17 TIME: 10:38 Assessment/Plan VTE Prophylaxis VTE Prophylaxis Intervention: SCD's Lines/Catheters IV Catheter Type (from Nrsg): Peripheral IV Urinary Cath still in place: No Assessment/Plan Assessment/Plan 1. Bronchitis and sinusitis, will start levaquin and HHN with mucolytic rev with ENT who saw pt today 2. Confusion has resolved, MRI and carotid studies noted. 3. DM, sugars are acceptable. 4. BP is controlled. 5. Rev with patient need for acute rehab and he will consider, was declined at [facility] 6. Needs cont PT Subjective 24 Hr Interval Summary Respiratory: No shortness of breath (cough has increased and is not productive) Cardiovascular: No chest pain Gastrointestinal: no complaints Genitourinary: no complaints Neurologic: No headache Exam/Review of Systems Vital Signs Vitals Vital Signs Date Time Temp Pulse Resp B/P Pulse Ox O2 Delivery O2 Flow Rate FiO2 09/12/17 08:04 98.4 63 20 125/73 92 09/10/17 20:00 Nasal Cannula 2.0 Intake and Output 09/11/17 09/11/17 09/12/17 14:59 22:59 06:59 Intake Total 1400 ml 2400 ml Output Total 300 ml Balance 1400 ml 2100 ml Exam Neck: No jvd Respiratory: other (rhonhci and few wheezes bilat) Cardiovascular: regular rate and rhythm Gastrointestinal: soft Extremities: No edema (and no calf tend) Results Result Diagram: 09/11/17 0432 09/11/17 0432 Results 24 hrs Laboratory Tests Test 09/11/17 12:20 09/11/17 17:52 09/11/17 21:46 09/12/17 08:44 Bedside Glucose 127 122 136 105 Medications Medications Current Medications Ondansetron HCl (Zofran Inj) 4 mg Q6H PRN IV NAUSEA AND/OR VOMITING Last administered on 09/08/17 04:58; Admin Dose 4 MG; Start 09/07/17 at 17:30 Amlodipine Besylate (Norvasc) 10 mg DAILY PO Last administered on 09/12/17 08 :49; Admin Dose 10 MG; Start 09/08/17 at 09:00 Aspirin (Aspirin) 81 mg DAILY PO Last administered on 09/12/17 08:47; Admin Dose 81 MG; Start 09/08/17 at 09:00 Atorvastatin Calcium (Lipitor) 40 mg QHS PO Last administered on 09/11/17 20: 53; Admin Dose 40 MG; Start 09/07/17 at 21:00 Clopidogrel Bisulfate (plaVIX) 75 mg DAILY PO Last administered on 09/12/17 08:47; Admin Dose 75 MG; Start 09/08/17 at 09:00 Gabapentin (Neurontin) 900 mg TID PO Last administered on 09/12/17 08:47; Admin Dose 900 MG; Start 09/07/17 at 21:00 Insulin Glargine (Lantus) 44 unit QHS SC Last administered on 09/11/17 21:48 ; Admin Dose 44 UNIT; Start 09/07/17 at 21:00 Pantoprazole (Protonix Tab) 40 mg DAILY@06 PO Last administered on 09/12/17 06:19; Admin Dose 40 MG; Start 09/08/17 at 06:00 Miscellaneous Information 1 ea NOTE XX ; Start 09/07/17 at 19:00 Glucose (Glutose) 15 gm Q15M PRN PO DECREASED GLUCOSE; Start 09/07/17 at 19:00 Glucose (Glutose) 22.5 gm Q15M PRN PO DECREASED GLUCOSE; Start 09/07/17 at 19: 00 Dextrose (D50w Syringe) 25 ml Q15M PRN IV DECREASED GLUCOSE; Start 09/07/17 at 19:00 Dextrose (D50w Syringe) 50 ml Q15M PRN IV DECREASED GLUCOSE; Start 09/07/17 at 19:00 Glucagon (Glucagen) 1 mg Q15M PRN IM DECREASED GLUCOSE; Start 09/07/17 at 19: 00 Glucose (Glutose) 15 gm Q15M PRN BUCCAL DECREASED GLUCOSE; Start 09/07/17 at 19:00 Clonidine (Catapres) 0.1 mg Q6 PO Last administered on 09/12/17 06:22; Admin Dose 0.1 MG; Start 09/10/17 at 12:00 Valsartan (Diovan) 80 mg DAILY PO Last administered on 09/12/17 08:48; Admin Dose 80 MG; Start 09/10/17 at 09:30 Cyanocobalamin (Vitamin B12 Inj) 1,000 mcg DAILY IM Last administered on 08:47; Admin Dose 1,000 MCG; Start 09/10/17 at 13:00 Acetaminophen (Tylenol Tab) 650 mg Q4H PRN PO PAIN AND OR ELEVATED TEMP Last administered on 09/12/17 09:37; Admin Dose 650 MG; Start 09/10/17 at 21:00 Zolpidem Tartrate (Ambien) 5 mg HS PRN PO INSOMNIA Last administered on 23:33; Admin Dose 5 MG; Start 09/10/17 at 23:00 Guaifenesin (Mucinex) 600 mg BID PO Last administered on 09/12/17 08:47; Admin Dose 600 MG; Start 09/11/17 at 11:00 SHIRLEY CUNNINGHAM MD Sep 12, 2017 10:41
[2017-09-12] MEDS ORDERED: GUAIFENESIN/DM (SR) TAB PO SCH (12:00)
[2017-09-12] MEDS: LEVOFLOXACIN 500 MG TAB PO SCH (12:19)
[2017-09-12] MEDS: LEVALBUTEROL (NEB) 0.63 MG/3 ML AMP HHN SCH ×3 (12:24→19:41)
[2017-09-12] MEDS: IPRATROPIUM (NEB) 0.5 MG/2.5 ML AMP HHN SCH ×2 (12:33→19:42)
[2017-09-12] MEDS: GUAIFENESIN/DM 5ML CUP PO SCH ×3 (13:08→20:13)
[2017-09-12 15:22] VITALS: BP 149/69; RESP 20
--- NOTE | 2017-09-12 15:48 | HP ---
DATE OF ADMISSION: 09/11/2017 REFERRING PHYSICIAN: Dr. Reed for Dr. Saldivar. Dr. Reed and Dr. Saldivar, thank you for involving me in the care of this patient. REASON FOR CONSULTATION: Sinusitis. HISTORY OF PRESENT ILLNESS: Patient is a 72-year-old gentleman with history of nausea, vomiting jorge luis or to admission and some incontinence in the stool and urine. He does have a history of multiple me dical problems including vestibular dysfunction, ataxia, diabetes out of control, syncope, hypothyro idism, hyperlipidemia, squamous cell carcinoma of the head. He was also having some right shoulder and right hip pain. He was admitted for IV hydration and supportive management. He has continued t o improve over the last several days. Nausea and vomiting has resolved. He had been noted to have some throat congestion at which point imaging studies of the sinuses were obtained including an MRI of the brain and a CT of the brain. The MRI of the brain demonstrates mild-to- moderate paranasal s inus disease with air-fluid levels and the CT scan of the brain confirms the presence of air fluid l evels within both maxillary sinuses and partial opacification of the ethmoid air cells. Consultatio n is now obtained for further evaluation and management of this patient. PAST MEDICAL HISTORY: Significant for hypertension, ataxia, diabetes mellitus type 2, hypothyroidis m, hyperlipidemia, head and neck squamous cell carcinoma, atherosclerotic heart disease, status post stent placement, and vestibular dysfunction. PAST SURGICAL HISTORY: Includes thyroglossal duct cyst removal in 1981, right foot bone spur, left eye pterygium removal, left foot surgery to fuse the bones, right knee replacement in 2010, coronary artery stent. ALLERGIES: SULFA. SOCIAL HISTORY: Does not smoke or drink. FAMILY HISTORY: Diabetes mellitus and coronary artery disease. MEDICATIONS: On admission include: 1. Plavix. 2. Amlodipine. 3. Atorvastatin. 4. Nitroglycerin. 5. Aspirin. 6. Gabapentin. 7. Omeprazole. 8. Zofran. 9. Lantus. 10. Synthroid. 11. Metformin. REVIEW OF SYSTEMS: A 14-point review of systems performed and as noted. PHYSICAL EXAMINATION: GENERAL: Well-developed, well-nourished male in no acute distress. VITAL SIGNS: Stable. ENT: Tympanic membranes clear. Oropharynx and cavity is clear. NECK: Supple, full range of motion. LYMPH: No cervical lymphadenopathy. EYES: Pupils equal, round, react to light and accommodation. Sclerae are anicteric. Cranial nerve s II through XII grossly intact. EXTREMITIES: No clubbing, cyanosis, or edema. ASSESSMENT AND PLAN: Resolved nausea and vomiting, improved mental status, now with acute on chroni c sinusitis. RECOMMENDATIONS: Are to start Afrin nasal spray decongestant for 3 days. Start Flonase nasal spray . Nasal culture to establish a pathogen. Continue Mucinex. Dictated By: BIRD QUEVEDO/CAROL Conf#: [id number] DID#: [id number]
--- NOTE | 2017-09-12 18:43 | RADRPT ---
PROCEDURE: XR Chest. CLINICAL INDICATION: Cough TECHNIQUE: PA and lateral views of the chest were obtained COMPARISON: 09/09/2016 FINDINGS: The heart is stable and mildly enlarged. The pulmonary vasculature are unremarkable. The aorta demo nstrates atherosclerotic calcifications. There is mild prominence of the interstitial lung markings without focal lung opacity or effusion or pneumothorax. Degenerative changes are seen within the t horacic spine. There is no acute osseous abnormality. IMPRESSION: Mild prominence of the interstitial lung markings could represent interstitial inflammation or possi lebron edema. Stable mild cardiomegaly. Atherosclerotic disease is present. RPTAT: AA .Ayana Guevara MD, MD Date Time Electronically viewed and signed by .Ayana Guevara MD, on 09/12/2017 18:43 .Debby/
[2017-09-12 19:28] VITALS: BP 130/60; PULSE 80; RESP 18
[2017-09-12] MEDS: ATORVASTATIN 40 MG TAB PO SCH (20:12)
[2017-09-12] MEDS: INSULIN GLARGINE [LANtus] 3 ML PEN SC SCH (20:19)
[2017-09-12] MEDS: ZOLPIDEM 5 MG TAB PO PRN (21:07)
[2017-09-13] MEDS: LEVALBUTEROL (NEB) 0.63 MG/3 ML AMP HHN SCH ×4 (01:25→20:50)
[2017-09-13 02:20] VITALS: BP 133/62; RESP 20
[2017-09-13 02:45] VITALS: BP 128/57; RESP 19
[2017-09-13] MEDS: ACETAMINOPHEN 325 MG TAB PO PRN ×3 (04:20→18:05)
[2017-09-13 05:41] LABS: BASOPHILS % 0.2 % (0.0-2.0); EOSINOPHILS % 0.1 % (0.0-7.0); HEMATOCRIT 41.5 % (42.0-52.0); HEMOGLOBIN 14.1 g/dl (14.0-18.0); LYMPHOCYTES # 2.5 10^3/ul (0.8-2.9); LYMPHOCYTES % 20.8 % (15.0-51.0); MEAN CORPUSCULAR HEMOGLOBIN 29.8 pg (29.0-33.0); MEAN CORPUSCULAR VOLUME 87.7 fl (82.0-101.0); MEAN PLATELET VOLUME 10.2 fl (7.4-10.4); MONOCYTE # 0.8 10^3/ul (0.3-0.9); MONOCYTES % 6.8 % (0.0-11.0); NEUTROPHIL # 8.6 10^3/ul (1.6-7.5); NEUTROPHILS % 71.8 % (39.0-77.0); PLATELET COUNT 210 10^3/UL (140-415); RED BLOOD COUNT 4.73 10^6/ul (4.70-6.10); RED CELL DISTRIBUTION WIDTH 13.1 % (11.5-14.5)
[2017-09-13] MEDS: LEVOFLOXACIN 500 MG TAB PO SCH (06:17)
[2017-09-13] MEDS: PANTOPRAZOLE (EC) 40 MG TAB PO SCH (06:17)
[2017-09-13] MEDS: LEVOTHYROXINE 150 MCG TAB PO SCH (06:17)
[2017-09-13 06:39] LABS: CREATININE 0.8 mg/dl (0.61-1.24); MAGNESIUM 1.6 mg/dl (1.7-2.5); PHOSPHORUS 3.6 mg/dl (2.5-4.9); POTASSIUM 3.8 mmol/L (3.5-5.1)
[2017-09-13] MEDS: INSULIN ASPART [NOVOLOG] 3 ML PEN SC SCH ×3 (07:20→17:25)
[2017-09-13 07:47] VITALS: BP 123/68; RESP 19
[2017-09-13] MEDS: IPRATROPIUM (NEB) 0.5 MG/2.5 ML AMP HHN SCH ×3 (07:53→20:50)
[2017-09-13] MEDS: ASPIRIN 81 MG TAB PO SCH (09:15)
[2017-09-13] MEDS: GABAPENTIN 300 MG CAP PO SCH ×3 (09:15→20:42)
[2017-09-13] MEDS: CLOPIDOGREL 75 MG TAB PO SCH (09:15)
[2017-09-13] MEDS: CYANOCOBALAMIN 1000 MCG INJ IM SCH (09:16)
[2017-09-13] MEDS: GUAIFENESIN/DM 5ML CUP PO SCH ×4 (09:16→20:41)
[2017-09-13] MEDS: AMLODIPINE 10 MG TAB PO SCH (09:16)
[2017-09-13] MEDS: VALSARTAN 80 MG TAB PO SCH (09:16)
[2017-09-13] MEDS: metFORMIN 500 MG TAB PO SCH ×2 (09:34→18:01)
--- NOTE | 2017-09-13 09:50 | CONS ---
Date/Time of Note Date/Time of Note DATE: 09/13/17 TIME: 09:47 Assessment/Plan Assessment/Plan Additional Assessment/Plan 1. Bronchitis and sinusitis, sl better 2. Confusion has resolved, MRI and carotid studies noted. 3. DM, sugars are acceptable. 4. BP is controlled. 5. Will start Lovenox for dvt prophylaxis as not mobile 6. Again encouraged him to consider rehab facility. 7. Rev with nursing staff need to get him out of bed. Consultation Date/Type/Reason Admit Date/Time Sep 11, 2017 at 10:00 Initial Consult Date 09/09/17 Type of Consultation: Neurology Referring Provider: WILMA GARIBAY MD Detailed Summary Respiratory: cough (is better and not productive), No shortness of breath Cardiovascular: chest pain Gastrointestinal: no complaints Genitourinary: no complaints Exam/Review of Systems Vital Signs Vitals Vital Signs Date Time Temp Pulse Resp B/P Pulse Ox O2 Delivery O2 Flow Rate FiO2 09/13/17 08:01 74 15 91 21 09/13/17 07:47 98.0 123/68 09/13/17 01:26 2.0 09/12/17 20:36 Nasal Cannula Intake and Output 09/12/17 09/12/17 09/13/17 15:00 23:00 07:00 Intake Total 800 ml 1500 ml Output Total 830 ml 1200 ml Balance -30 ml 300 ml Exam Neck: No jvd Respiratory: diminished breath sounds, other (few rhonchi bilat without wheezing) Cardiovascular: regular rate and rhythm Gastrointestinal: soft Extremities: No edema, No tenderness Results Result Diagram: 09/13/17 0432 09/13/17 0432 Results 24 hrs Laboratory Tests Test 09/12/17 13:07 09/12/17 17:49 09/12/17 20:07 09/13/17 04:32 Bedside Glucose 127 120 149 White Blood Count 12.0 #H Red Blood Count 4.73 Hemoglobin 14.1 Hematocrit 41.5 L Mean Corpuscular Volume 87.7 Mean Corpuscular Hemoglobin 29.8 Mean Corpuscular Hemoglobin Concent 34.0 Red Cell Distribution Width 13.1 Platelet Count 210 Mean Platelet Volume 10.2 Neutrophils % 71.8 Lymphocytes % 20.8 Monocytes % 6.8 Eosinophils % 0.1 Basophils % 0.2 Nucleated Red Blood Cells % 0.0 Neutrophils # 8.6 H Lymphocytes # 2.5 Monocytes # 0.8 Eosinophils # 0.0 Basophils # 0.0 Nucleated Red Blood Cells # 0.0 Sodium Level 137 Potassium Level 3.8 Chloride Level 97 Carbon Dioxide Level 28 Anion Gap 16 Blood Urea Nitrogen 7 Creatinine 0.80 Glucose Level 93 Calcium Level 9.0 Phosphorus Level 3.6 Magnesium Level 1.6 L Test 09/13/17 09:13 Bedside Glucose 104 Medications Medications Current Medications Ondansetron HCl (Zofran Inj) 4 mg Q6H PRN IV NAUSEA AND/OR VOMITING Last administered on 09/08/17 04:58; Admin Dose 4 MG; Start 09/07/17 at 17:30 Amlodipine Besylate (Norvasc) 10 mg DAILY PO Last administered on 09/13/17 09 :16; Admin Dose 10 MG; Start 09/08/17 at 09:00 Aspirin (Aspirin) 81 mg DAILY PO Last administered on 09/13/17 09:15; Admin Dose 81 MG; Start 09/08/17 at 09:00 Atorvastatin Calcium (Lipitor) 40 mg QHS PO Last administered on 09/12/17 20: 12; Admin Dose 40 MG; Start 09/07/17 at 21:00 Clopidogrel Bisulfate (plaVIX) 75 mg DAILY PO Last administered on 09/13/17 09:15; Admin Dose 75 MG; Start 09/08/17 at 09:00 Gabapentin (Neurontin) 900 mg TID PO Last administered on 09/13/17 09:15; Admin Dose 900 MG; Start 09/07/17 at 21:00 Insulin Glargine (Lantus) 44 unit QHS SC Last administered on 09/12/17 20:19 ; Admin Dose 44 UNIT; Start 09/07/17 at 21:00 Pantoprazole (Protonix Tab) 40 mg DAILY@06 PO Last administered on 09/13/17 06:17; Admin Dose 40 MG; Start 09/08/17 at 06:00 Miscellaneous Information 1 ea NOTE XX ; Start 09/07/17 at 19:00 Glucose (Glutose) 15 gm Q15M PRN PO DECREASED GLUCOSE; Start 09/07/17 at 19:00 Glucose (Glutose) 22.5 gm Q15M PRN PO DECREASED GLUCOSE; Start 09/07/17 at 19: 00 Dextrose (D50w Syringe) 25 ml Q15M PRN IV DECREASED GLUCOSE; Start 09/07/17 at 19:00 Dextrose (D50w Syringe) 50 ml Q15M PRN IV DECREASED GLUCOSE; Start 09/07/17 at 19:00 Glucagon (Glucagen) 1 mg Q15M PRN IM DECREASED GLUCOSE; Start 09/07/17 at 19: 00 Glucose (Glutose) 15 gm Q15M PRN BUCCAL DECREASED GLUCOSE; Start 09/07/17 at 19:00 Clonidine (Catapres) 0.1 mg Q6 PO Last administered on 09/13/17 06:17; Admin Dose 0.1 MG; Start 09/10/17 at 12:00 Valsartan (Diovan) 80 mg DAILY PO Last administered on 09/13/17 09:16; Admin Dose 80 MG; Start 09/10/17 at 09:30 Cyanocobalamin (Vitamin B12 Inj) 1,000 mcg DAILY IM Last administered on 09:16; Admin Dose 1,000 MCG; Start 09/10/17 at 13:00 Acetaminophen (Tylenol Tab) 650 mg Q4H PRN PO PAIN AND OR ELEVATED TEMP Last administered on 09/13/17 04:20; Admin Dose 650 MG; Start 09/10/17 at 21:00 Zolpidem Tartrate (Ambien) 5 mg HS PRN PO INSOMNIA Last administered on 21:07; Admin Dose 5 MG; Start 09/10/17 at 23:00 Levofloxacin (Levaquin) 500 mg DAILY@06 PO Last administered on 09/13/17 06: 17; Admin Dose 500 MG; Start 09/12/17 at 12:00 Guaifenesin/ Dextromethorphan (Robitussin Dm Liquid Cup) 15 ml QID PO Last administered on 09/13/17 09:16; Admin Dose 15 ML; Start 09/12/17 at 13:00 SHIRLEY CUNNINGHAM MD Sep 13, 2017 09:50
[2017-09-13] MEDS: ENOXAPARIN 40 MG/0.4 ML SYG SC SCH ×2 (10:00→12:04)
[2017-09-13 19:59] VITALS: BP 119/57; RESP 18
[2017-09-13] MEDS: ATORVASTATIN 40 MG TAB PO SCH (20:41)
[2017-09-13] MEDS: INSULIN GLARGINE [LANtus] 3 ML PEN SC SCH (20:43)
[2017-09-13] MEDS: ZOLPIDEM 5 MG TAB PO PRN (22:11)
[2017-09-13 23:57] VITALS: BP 131/72; RESP 18
[2017-09-14] MEDS: LEVALBUTEROL (NEB) 0.63 MG/3 ML AMP HHN SCH ×4 (01:39→19:50)
[2017-09-14 02:32] LABS: ADD UMIC NO; UR ASCORBIC ACID NEGATIVE (NEGATIVE); UR BILIRUBIN (Dip) NEGATIVE (NEGATIVE); UR BLOOD (Dip) NEGATIVE (NEGATIVE); UR CLARITY CLEAR (CLEAR); UR COLOR STRAW (YELLOW); UR GLUCOSE (Dip) NEGATIVE (NEGATIVE); UR KETONES (Dip) NEGATIVE (NEGATIVE); UR LEUKOCYTE ESTERASE (Dip) NEGATIVE Leu/ul (NEGATIVE); UR NITRITE (Dip) NEGATIVE (NEGATIVE); UR SPECIFIC GRAVITY (Dip) 1.002 (1.003-1.030); UR TOTAL PROTEIN (Dip) NEGATIVE (NEGATIVE); UR UROBILINOGEN (Dip) NEGATIVE (NEGATIVE)
[2017-09-14] MEDS: ACETAMINOPHEN 325 MG TAB PO PRN ×2 (05:08→12:01)
[2017-09-14] MEDS: LEVOTHYROXINE 150 MCG TAB PO SCH (06:12)
[2017-09-14] MEDS: PANTOPRAZOLE (EC) 40 MG TAB PO SCH (06:12)
[2017-09-14] MEDS: LEVOFLOXACIN 500 MG TAB PO SCH (06:13)
[2017-09-14 06:14] VITALS: BP 139/77; PULSE 62
[2017-09-14 07:18] VITALS: BP 146/74; RESP 20
[2017-09-14] MEDS: INSULIN ASPART [NOVOLOG] 3 ML PEN SC SCH ×3 (07:20→17:00)
[2017-09-14] MEDS: IPRATROPIUM (NEB) 0.5 MG/2.5 ML AMP HHN SCH ×3 (07:57→19:50)
[2017-09-14] MEDS ORDERED: MAGNESIUM SULFATE 2 GM/50 ML 50 ML IVPB ONE (08:30)
[2017-09-14] MEDS: ASPIRIN 81 MG TAB PO SCH (08:31)
[2017-09-14] MEDS: AMLODIPINE 10 MG TAB PO SCH (08:32)
[2017-09-14] MEDS: GABAPENTIN 300 MG CAP PO SCH ×3 (08:32→20:36)
[2017-09-14] MEDS: CLOPIDOGREL 75 MG TAB PO SCH (08:32)
[2017-09-14] MEDS: CYANOCOBALAMIN 1000 MCG INJ IM SCH (08:32)
[2017-09-14] MEDS: VALSARTAN 80 MG TAB PO SCH (08:33)
[2017-09-14] MEDS: GUAIFENESIN/DM 5ML CUP PO SCH (08:33)
--- NOTE | 2017-09-14 08:33 | PN ---
Date/Time of Note Date/Time of Note DATE: 09/14/17 TIME: 08:29 Assessment/Plan VTE Prophylaxis VTE Prophylaxis Intervention: LMWH Lines/Catheters IV C[facility]ter Type (from [facility] Urinary Cath still in place: No Assessment/Plan Chief Complaint/Hosp Course #1.Nausea ,vomiting , generalized weakness. The nausea and vomiting have resolved. I will order physical therapy and see if he can get up and walk. 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 He has completed a full neurologic workup including scans. Neurologist says that he has peripheral neuropathy. He needs to get up and start walking and strengthening exercises. #6 Sinusitis and bronchitis. Being treated with Levaquin. #7 We will change to a regular diet. Problems: Subjective 24 Hr Interval Summary Free Text/Dictation Patient complains of food. He complains of having a cough. Respiratory: cough, wheezing Cardiovascular: no complaints Gastrointestinal: no complaints Genitourinary: no complaints Neurologic: dizziness Exam/Review of Systems Vital Signs Vitals Vital Signs Date Time Temp Pulse Resp B/P Pulse Ox O2 Delivery O2 Flow Rate FiO2 09/14/17 07:58 60 18 94 21 09/14/17 07:18 98.3 146/74 09/13/17 08:00 Nasal Cannula 2.0 Intake and Output 09/13/17 09/13/17 09/14/17 14:59 22:59 06:59 Intake Total 2160 ml 1600 ml Output Total 1700 ml 2000 ml Balance 460 ml -400 ml Exam Constitutional: alert, oriented, well developed Neck: non-tender, supple Respiratory: wheezing Cardiovascular: regular rate and rhythm Gastrointestinal: non-tender, soft Musculoskeletal: nl extremities to inspection Neurological: lethargic Results Result Diagram: 09/13/17 0432 09/13/17 0432 Results 24 hrs Laboratory Tests Test 09/13/17 09:13 09/13/17 12:08 09/13/17 17:59 09/13/17 19:51 Bedside Glucose 104 172 152 135 Test 09/14/17 02:10 Urine Color STRAW Urine Clarity CLEAR Urine pH 7.0 Urine Specific [place] 1.002 L Urine Ketones NEGATIVE Urine Nitrite NEGATIVE Urine Bilirubin NEGATIVE Urine Urobilinogen NEGATIVE Urine Leukocyte Esterase NEGATIVE Urine Hemoglobin NEGATIVE Urine Glucose NEGATIVE Urine Total Protein NEGATIVE Medications Medications Current Medications Ondansetron HCl (Zofran Inj) 4 mg Q6H PRN IV NAUSEA AND/OR VOMITING Last administered on 09/08/17 04:58; Admin Dose 4 MG; Start 09/07/17 at 17:30 Amlodipine Besylate (Norvasc) 10 mg DAILY PO Last administered on 09/13/17 09 :16; Admin Dose 10 MG; Start 09/08/17 at 09:00 Aspirin (Aspirin) 81 mg DAILY PO Last administered on 09/13/17 09:15; Admin Dose 81 MG; Start 09/08/17 at 09:00 Atorvastatin Calcium (Lipitor) 40 mg QHS PO Last administered on 09/13/17 20: 41; Admin Dose 40 MG; Start 09/07/17 at 21:00 Clopidogrel Bisulfate (plaVIX) 75 mg DAILY PO Last administered on 09/13/17 09:15; Admin Dose 75 MG; Start 09/08/17 at 09:00 Gabapentin (Neurontin) 900 mg TID PO Last administered on 09/13/17 20:42; Admin Dose 900 MG; Start 09/07/17 at 21:00 Insulin Glargine (Lantus) 44 unit QHS SC Last administered on 09/13/17 20:43 ; Admin Dose 44 UNIT; Start 09/07/17 at 21:00 Pantoprazole (Protonix Tab) 40 mg DAILY@06 PO Last administered on 09/14/17 06:12; Admin Dose 40 MG; Start 09/08/17 at 06:00 Miscellaneous Information 1 ea NOTE XX ; Start 09/07/17 at 19:00 Glucose (Glutose) 15 gm Q15M PRN PO DECREASED GLUCOSE; Start 09/07/17 at 19:00 Glucose (Glutose) 22.5 gm Q15M PRN PO DECREASED GLUCOSE; Start 09/07/17 at 19: 00 Dextrose (D50w Syringe) 25 ml Q15M PRN IV DECREASED GLUCOSE; Start 09/07/17 at 19:00 Dextrose (D50w Syringe) 50 ml Q15M PRN IV DECREASED GLUCOSE; Start 09/07/17 at 19:00 Glucagon (Glucagen) 1 mg Q15M PRN IM DECREASED GLUCOSE; Start 09/07/17 at 19: 00 Glucose (Glutose) 15 gm Q15M PRN BUCCAL DECREASED GLUCOSE; Start 09/07/17 at 19:00 Clonidine (Catapres) 0.1 mg Q6 PO Last administered on 09/13/17 18:02; Admin Dose 0.1 MG; Start 09/10/17 at 12:00 Valsartan (Diovan) 80 mg DAILY PO Last administered on 09/13/17 09:16; Admin Dose 80 MG; Start 09/10/17 at 09:30 Cyanocobalamin (Vitamin B12 Inj) 1,000 mcg DAILY IM Last administered on 09:16; Admin Dose 1,000 MCG; Start 09/10/17 at 13:00 Acetaminophen (Tylenol Tab) 650 mg Q4H PRN PO PAIN AND OR ELEVATED TEMP Last administered on 09/14/17 05:08; Admin Dose 650 MG; Start 09/10/17 at 21:00 Zolpidem Tartrate (Ambien) 5 mg HS PRN PO INSOMNIA Last administered on 22:11; Admin Dose 5 MG; Start 09/10/17 at 23:00 Levofloxacin (Levaquin) 500 mg DAILY@06 PO Last administered on 09/14/17 06: 13; Admin Dose 500 MG; Start 09/12/17 at 12:00 Guaifenesin/ Dextromethorphan (Robitussin Dm Liquid Cup) 15 ml QID PO Last administered on 09/13/17 20:41; Admin Dose 15 ML; Start 09/12/17 at 13:00 Enoxaparin Sodium 40 mg 40 mg DAILY SC ; Start 09/13/17 at 10:00 Magnesium Sulfate (Magnesium Sulfate 2 Gm/50 ml) 50 ml @ 25 mls/hr ONCE ONCE IVPB ; Start 09/14/17 at 08:30; Stop 09/14/17 at 10:29 WILMA GARIBAY MD Sep 14, 2017 08:33
[2017-09-14] MEDS: metFORMIN 500 MG TAB PO SCH ×2 (08:36→16:59)
[2017-09-14] MEDS: MAGNESIUM OXIDE 400 MG TAB PO SCH ×2 (12:54→20:37)
[2017-09-14 14:20] VITALS: BP 120/56; RESP 20
[2017-09-14 15:39] LABS: BASOPHILS % 0.3 % (0.0-2.0); EOSINOPHILS # 0.1 10^3/ul (0.0-0.5); EOSINOPHILS % 1.7 % (0.0-7.0); HEMATOCRIT 38.4 % (42.0-52.0); HEMOGLOBIN 13.1 g/dl (14.0-18.0); LYMPHOCYTES # 1.8 10^3/ul (0.8-2.9); LYMPHOCYTES % 26.8 % (15.0-51.0); MEAN CORPUSCULAR HGB CONC 34.1 g/dl (32.0-37.0); MEAN CORPUSCULAR VOLUME 88.1 fl (82.0-101.0); MEAN PLATELET VOLUME 10.1 fl (7.4-10.4); MONOCYTE # 0.8 10^3/ul (0.3-0.9); MONOCYTES % 11.1 % (0.0-11.0); NEUTROPHIL # 4.1 10^3/ul (1.6-7.5); NEUTROPHILS % 59.7 % (39.0-77.0); PLATELET COUNT 239 10^3/UL (140-415); RED BLOOD COUNT 4.36 10^6/ul (4.70-6.10); RED CELL DISTRIBUTION WIDTH 12.9 % (11.5-14.5); WHITE BLOOD COUNT 6.9 10^3/ul (4.8-10.8)
[2017-09-14] MEDS: GUAIFENESIN/DM 5ML CUP PO PRN (16:59)
[2017-09-14 19:57] VITALS: BP 141/76; RESP 18
[2017-09-14] MEDS: ATORVASTATIN 40 MG TAB PO SCH (20:37)
[2017-09-14] MEDS: INSULIN GLARGINE [LANtus] 3 ML PEN SC SCH (20:43)
[2017-09-15] MEDS: GUAIFENESIN/DM 5ML CUP PO PRN (01:23)
[2017-09-15 01:47] VITALS: BP 138/87; RESP 18
[2017-09-15] MEDS: LEVALBUTEROL (NEB) 0.63 MG/3 ML AMP HHN SCH ×3 (02:20→13:49)
[2017-09-15] MEDS: ACETAMINOPHEN 325 MG TAB PO PRN ×2 (03:49→11:34)
[2017-09-15 06:21] LABS: BASOPHILS % 0.3 % (0.0-2.0); EOSINOPHILS # 0.1 10^3/ul (0.0-0.5); EOSINOPHILS % 1.3 % (0.0-7.0); HEMATOCRIT 39.7 % (42.0-52.0); HEMOGLOBIN 13.4 g/dl (14.0-18.0); LYMPHOCYTES # 1.5 10^3/ul (0.8-2.9); LYMPHOCYTES % 21.1 % (15.0-51.0); MEAN CORPUSCULAR HEMOGLOBIN 29.6 pg (29.0-33.0); MEAN CORPUSCULAR HGB CONC 33.8 g/dl (32.0-37.0); MEAN CORPUSCULAR VOLUME 87.6 fl (82.0-101.0); MEAN PLATELET VOLUME 10.2 fl (7.4-10.4); MONOCYTE # 0.8 10^3/ul (0.3-0.9); MONOCYTES % 11.9 % (0.0-11.0); NEUTROPHIL # 4.5 10^3/ul (1.6-7.5); NEUTROPHILS % 64.7 % (39.0-77.0); PLATELET COUNT 268 10^3/UL (140-415); RED BLOOD COUNT 4.53 10^6/ul (4.70-6.10); RED CELL DISTRIBUTION WIDTH 13.1 % (11.5-14.5)
[2017-09-15] MEDS: LEVOTHYROXINE 150 MCG TAB PO SCH (06:28)
[2017-09-15] MEDS: PANTOPRAZOLE (EC) 40 MG TAB PO SCH (06:28)
[2017-09-15] MEDS: LEVOFLOXACIN 500 MG TAB PO SCH (06:28)
[2017-09-15 07:14] LABS: ALBUMIN 3.5 g/dl (3.3-4.9); ALBUMIN/GLOBULIN RATIO 1.09; BILIRUBIN,INDIRECT 0.5 mg/dl (0-1.1); BILIRUBIN,TOTAL 0.5 mg/dl (0.2-1.3); CALCIUM 9.1 mg/dl (8.4-10.2); CREATININE 0.82 mg/dl (0.61-1.24); MAGNESIUM 1.7 mg/dl (1.7-2.5); POTASSIUM 4.1 mmol/L (3.5-5.1); TOTAL PROTEIN 6.7 g/dl (6.1-8.1)
[2017-09-15] MEDS: INSULIN ASPART [NOVOLOG] 3 ML PEN SC SCH ×2 (07:20→13:07)
--- NOTE | 2017-09-15 07:56 | CONS ---
Date/Time of Note Date/Time of Note DATE: 09/15/17 TIME: 07:52 Assessment/Plan Assessment/Plan Chief Complaint/Hosp Course #1.Nausea ,vomiting , generalized weakness. The nausea and vomiting have resolved. I will order physical therapy and see if he can get up and walk. 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 He has completed a full neurologic workup including scans. Neurologist says that he has peripheral neuropathy. He needs to get up and start walking and strengthening exercises. #6 Sinusitis and bronchitis. Being treated with Levaquin. He continues to have a cough . #7 We will change to a regular diet. #8 discharge planning for outpatient rehab center . Problems: Consultation Date/Type/Reason Admit Date/Time Sep 11, 2017 at 10:00 Initial Consult Date 09/09/17 Type of Consultation: Neurology Referring Provider: WILMA GARIBAY MD 24 HR Interval Summary Free Text/Dictation He continues to have a cough . No fever . Exam/Review of Systems Vital Signs Vitals Vital Signs Date Time Temp Pulse Resp B/P Pulse Ox O2 Delivery O2 Flow Rate FiO2 09/15/17 02:23 2.0 09/15/17 02:23 74 18 95 Nasal Cannula 09/15/17 01:47 97.7 138/87 09/14/17 13:23 21 Intake and Output 09/14/17 09/14/17 09/15/17 15:00 23:00 07:00 Intake Total 1660 ml 1100 ml Output Total 1450 ml 2000 ml Balance 210 ml -900 ml Exam Constitutional: alert, oriented, well developed ENMT: nl external ears & nose, nl lips & teeth, nl nasal mucosa & septum Neck: non-tender, supple Respiratory: congested cough Cardiovascular: regular rate and rhythm Gastrointestinal: non-tender, soft Musculoskeletal: nl extremities to inspection Results Result Diagram: 09/15/17 0434 09/15/17 0434 Results 24 hrs Laboratory Tests Test 09/14/17 08:29 09/14/17 11:47 09/14/17 15:21 09/14/17 16:48 Bedside Glucose 118 126 134 White Blood Count 6.9 # Red Blood Count 4.36 L Hemoglobin 13.1 L Hematocrit 38.4 L Mean Corpuscular Volume 88.1 Mean Corpuscular Hemoglobin 30.0 Mean Corpuscular Hemoglobin Concent 34.1 Red Cell Distribution Width 12.9 Platelet Count 239 Mean Platelet Volume 10.1 Neutrophils % 59.7 Lymphocytes % 26.8 Monocytes % 11.1 H Eosinophils % 1.7 Basophils % 0.3 Nucleated Red Blood Cells % 0.0 Neutrophils # 4.1 Lymphocytes # 1.8 Monocytes # 0.8 Eosinophils # 0.1 Basophils # 0.0 Nucleated Red Blood Cells # 0.0 Test 09/14/17 20:40 09/15/17 04:34 Bedside Glucose 194 White Blood Count 7.0 Red Blood Count 4.53 L Hemoglobin 13.4 L Hematocrit 39.7 L Mean Corpuscular Volume 87.6 Mean Corpuscular Hemoglobin 29.6 Mean Corpuscular Hemoglobin Concent 33.8 Red Cell Distribution Width 13.1 Platelet Count 268 Mean Platelet Volume 10.2 Neutrophils % 64.7 Lymphocytes % 21.1 Monocytes % 11.9 H Eosinophils % 1.3 Basophils % 0.3 Nucleated Red Blood Cells % 0.0 Neutrophils # 4.5 Lymphocytes # 1.5 Monocytes # 0.8 Eosinophils # 0.1 Basophils # 0.0 Nucleated Red Blood Cells # 0.0 Sodium Level 138 Potassium Level 4.1 Chloride Level 98 Carbon Dioxide Level 29 Anion Gap 15 Blood Urea Nitrogen 7 Creatinine 0.82 Glucose Level 114 Calcium Level 9.1 Magnesium Level 1.7 Total Bilirubin 0.5 Direct Bilirubin 0.00 Indirect Bilirubin 0.5 Aspartate Amino Transf (AST/SGOT) 63 H Alanine Aminotransferase (ALT/SGPT) 64 Alkaline Phosphatase 48 Total Protein 6.7 Albumin 3.5 Globulin 3.20 Albumin/Globulin Ratio 1.09 Medications Medications Current Medications Ondansetron HCl (Zofran Inj) 4 mg Q6H PRN IV NAUSEA AND/OR VOMITING Last administered on 09/08/17 04:58; Admin Dose 4 MG; Start 09/07/17 at 17:30 Amlodipine Besylate (Norvasc) 10 mg DAILY PO Last administered on 09/14/17 08 :32; Admin Dose 10 MG; Start 09/08/17 at 09:00 Aspirin (Aspirin) 81 mg DAILY PO Last administered on 09/14/17 08:31; Admin Dose 81 MG; Start 09/08/17 at 09:00 Atorvastatin Calcium (Lipitor) 40 mg QHS PO Last administered on 09/14/17 20: 37; Admin Dose 40 MG; Start 09/07/17 at 21:00 Clopidogrel Bisulfate (plaVIX) 75 mg DAILY PO Last administered on 09/14/17 08:32; Admin Dose 75 MG; Start 09/08/17 at 09:00 Gabapentin (Neurontin) 900 mg TID PO Last administered on 09/14/17 20:36; Admin Dose 900 MG; Start 09/07/17 at 21:00 Insulin Glargine (Lantus) 44 unit QHS SC Last administered on 09/14/17 20:43 ; Admin Dose 44 UNIT; Start 09/07/17 at 21:00 Pantoprazole (Protonix Tab) 40 mg DAILY@06 PO Last administered on 09/15/17 06:28; Admin Dose 40 MG; Start 09/08/17 at 06:00 Miscellaneous Information 1 ea NOTE XX ; Start 09/07/17 at 19:00 Glucose (Glutose) 15 gm Q15M PRN PO DECREASED GLUCOSE; Start 09/07/17 at 19:00 Glucose (Glutose) 22.5 gm Q15M PRN PO DECREASED GLUCOSE; Start 09/07/17 at 19: 00 Dextrose (D50w Syringe) 25 ml Q15M PRN IV DECREASED GLUCOSE; Start 09/07/17 at 19:00 Dextrose (D50w Syringe) 50 ml Q15M PRN IV DECREASED GLUCOSE; Start 09/07/17 at 19:00 Glucagon (Glucagen) 1 mg Q15M PRN IM DECREASED GLUCOSE; Start 09/07/17 at 19: 00 Glucose (Glutose) 15 gm Q15M PRN BUCCAL DECREASED GLUCOSE; Start 09/07/17 at 19:00 Clonidine (Catapres) 0.1 mg Q6 PO Last administered on 09/14/17 11:53; Admin Dose 0.1 MG; Start 09/10/17 at 12:00 Valsartan (Diovan) 80 mg DAILY PO Last administered on 09/14/17 08:33; Admin Dose 80 MG; Start 09/10/17 at 09:30 Cyanocobalamin (Vitamin B12 Inj) 1,000 mcg DAILY IM Last administered on 08:32; Admin Dose 1,000 MCG; Start 09/10/17 at 13:00 Acetaminophen (Tylenol Tab) 650 mg Q4H PRN PO PAIN AND OR ELEVATED TEMP Last administered on 09/15/17 03:49; Admin Dose 650 MG; Start 09/10/17 at 21:00 Zolpidem Tartrate (Ambien) 5 mg HS PRN PO INSOMNIA Last administered on 22:11; Admin Dose 5 MG; Start 09/10/17 at 23:00 Levofloxacin (Levaquin) 500 mg DAILY@06 PO Last administered on 09/15/17 06: 28; Admin Dose 500 MG; Start 09/12/17 at 12:00 Guaifenesin/ Dextromethorphan (Robitussin Dm Liquid Cup) 15 ml QID PRN PO COUGH Last administered on 09/15/17 01:23; Admin Dose 15 ML; Start 09/14/17 at 09:00 Magnesium Oxide (Mag-Ox 400) 400 mg BID PO Last administered on 09/14/17 20: 37; Admin Dose 400 MG; Start 09/14/17 at 12:00 WILMA GARIBAY MD Sep 15, 2017 07:56
--- NOTE | 2017-09-15 08:49 | RADRPT ---
PROCEDURE: XR Chest. CLINICAL INDICATION: Cough. TECHNIQUE: Two views. Frontal and lateral. COMPARISON: 09/12/2017. FINDINGS: The lungs are clear. The heart is mildly enlarged. There is calcification in the aorta consistent with atherosclerosis. There is no pleural effusion. There is no pneumothorax. IMPRESSION: 1. Mild cardiomegaly and atherosclerosis. 2. Otherwise unremarkable chest radiograph. RPTAT: QQ .Abel Garcia MD, MD Date Time Electronically viewed and signed by .Abel Garcia MD, MD on 09/15/2017 08:48 .R/
[2017-09-15] MEDS: IPRATROPIUM (NEB) 0.5 MG/2.5 ML AMP HHN SCH ×2 (09:12→13:49)
[2017-09-15] MEDS: ASPIRIN 81 MG TAB PO SCH (09:13)
[2017-09-15] MEDS: MAGNESIUM OXIDE 400 MG TAB PO SCH (09:13)
[2017-09-15] MEDS: VALSARTAN 80 MG TAB PO SCH (09:13)
[2017-09-15] MEDS: CLOPIDOGREL 75 MG TAB PO SCH (09:13)
[2017-09-15] MEDS: metFORMIN 500 MG TAB PO SCH (09:13)
[2017-09-15] MEDS: GABAPENTIN 300 MG CAP PO SCH ×2 (09:13→13:04)
[2017-09-15] MEDS: AMLODIPINE 10 MG TAB PO SCH (09:14)
[2017-09-15] MEDS: CYANOCOBALAMIN 1000 MCG INJ IM SCH (09:14)
[2017-09-15 09:39] VITALS: BP 134/81; PULSE 79; RESP 18
== END 2017-09-15 16:00 | DRG 312 ==
LOC: E/R 08:22 → MS1 12:05 → OBSVTOIN 09-11 10:00
PROVIDERS: ADMIT Internal Medicine; ATTEND Internal Medicine
DX: I95.1 Orthostatic hypotension (principal); E11.40 Type 2 diabetes mellitus with diabetic neuropathy, unspecified; E11.65 Type 2 diabetes mellitus with hyperglycemia; J01.90 Acute sinusitis, unspecified; R11.2 Nausea with vomiting, unspecified; I10 Essential (primary) hypertension; R27.0 Ataxia, unspecified; E03.9 Hypothyroidism, unspecified; E78.5 Hyperlipidemia, unspecified; I25.10 Atherosclerotic heart disease of native coronary artery without angina pectoris; Z95.5 Presence of coronary angioplasty implant and graft; H81.90 Unspecified disorder of vestibular function, unspecified ear; J40 Bronchitis, not specified as acute or chronic; J32.9 Chronic sinusitis, unspecified; Z79.4 Long term (current) use of insulin; R50.9 Fever, unspecified
CPT/HCPCS: 36415; 70450; 70551; 71010; 71020; 74176; 80048; 80053; 81001; 81003; 82607; 82962; 83036; 83690; 83735; 84100; 84443; 84484; 85025; 85651; 86704; 86709; 86803; 87040; 87070; 87086; 87340; 87400; 93005; 93880; 93970; 94640; 94664; 96372; 96374; 96375; 97110; 97116; 97163; 97164; 97530; G0378; J1650; J1815; J2405; J3420; J3475; J7030

== ENCOUNTER 2019-07-24 17:30 | Inpatient (IN) | payer MEDICARE, OTHER ==
[~2019-07-24] VITALS: Ht 185.4 cm; Wt 97.7 kg
[~2019-07-24 17:30] MED LIST changes: +AMLO-145 PO; -AMLO-147 PO; -ASPI81TA3 PO; -CLOP75TA27 PO; -GABA300C16 PO; +GABA400C14 PO; +HALF81 PO; -LEVO150T67 PO; +LEVO150T7 PO; +LISI-471 PO; +METF-849 PO; -METF500T4 PO; -NITR0.4T32 SL; +NOVO3I SC; -OMEP20CA16 PO; +OMEP40CA38 PO; +TICA90TA PO
[2019-07-24] MEDS ORDERED: ONDANSETRON 4 MG INJ IV PRN (18:30)
[2019-07-24] MEDS ORDERED: ACETAMINOPHEN 325 MG TAB PO PRN (18:30)
[2019-07-24] MEDS ORDERED: ASPIRIN 325 MG TAB PO ONE (19:00)
[2019-07-24] MEDS ORDERED: GLUCOSE GEL 15 GRAM TUBE PO PRN ×2 (21:00)
[2019-07-24] MEDS ORDERED: GLUCOSE GEL 15 GRAM TUBE BUCCAL PRN (21:00)
[2019-07-24] MEDS ORDERED: DEXTROSE 50% 50 ML SYRINGE IV PRN ×2 (21:00)
[2019-07-24] MEDS ORDERED: GLUCAGON 1 MG INJ IM PRN (21:00)
[2019-07-24] MEDS: ATORVASTATIN 40 MG TAB PO SCH (21:29)
[2019-07-24] MEDS: AMLODIPINE 5 MG TAB PO SCH (21:30)
[2019-07-24] MEDS: GABAPENTIN 400 MG CAP PO SCH (21:31)
[2019-07-24] MEDS: LISINOPRIL 20 MG TAB PO SCH (21:31)
[2019-07-24] MEDS: INSULIN ASPART [NOVOLOG] 3 ML PEN SC SCH (21:38)
[2019-07-24] MEDS: ACCU-CHEK XX SCH (21:41)
[2019-07-24] MEDS ORDERED: LORAZEPAM 2 MG INJ IV ONE (22:00)
[2019-07-25] MEDS: ACCU-CHEK XX SCH ×4 (07:00→20:56)
[2019-07-25] MEDS ORDERED: LEVOTHYROXINE 150 MCG TAB PO SCH (07:00)
[2019-07-25] MEDS: PANTOPRAZOLE (EC) 40 MG TAB PO SCH (07:22)
[2019-07-25] MEDS: GABAPENTIN 400 MG CAP PO SCH ×3 (08:11→20:55)
[2019-07-25] MEDS: metFORMIN 500 MG TAB PO SCH ×2 (08:22→17:24)
[2019-07-25] MEDS ORDERED: DOCUSATE SODIUM 100 MG CAP PO PRN (08:30)
[2019-07-25] MEDS ORDERED: ACETAMINOPHEN 325 MG TAB PO PRN (08:30)
[2019-07-25] MEDS ORDERED: MAGNESIUM HYDROXIDE 30ML CUP PO PRN (08:30)
[2019-07-25] MEDS ORDERED: NACL 0.9% 3 ML SYG IV SCH (08:30)
[2019-07-25] MEDS ORDERED: NITROGLYCERIN (SL) 0.4 MG TAB SL PRN (08:30)
[2019-07-25] MEDS: INSULIN ASPART [NOVOLOG] 3 ML PEN SC SCH ×4 (08:34→20:56)
[2019-07-25] MEDS ORDERED: NON-FORMULARY/PATIENT OWN MED (Omeprazole* 40 MG) PO SCH (09:00)
[2019-07-25] MEDS: AMLODIPINE 5 MG TAB PO SCH ×2 (09:44→20:53)
[2019-07-25] MEDS: LISINOPRIL 20 MG TAB PO SCH ×2 (09:44→20:52)
[2019-07-25] MEDS: INSULIN GLARGINE [LANTus] (100 UNITS/ML) SYG SC SCH (10:28)
[2019-07-25] MEDS ORDERED: SOD CHLORIDE 0.9% 100 ML ONE (14:16)
[2019-07-25] MEDS ORDERED: IOHEXOL 100 ML ONE (14:16)
[2019-07-25 16:57] VITALS: BP 158/79; PULSE 68; RESP 20
[2019-07-25 17:15] VITALS: Ht 185.4 cm; Wt 97.7 kg
[2019-07-25] MEDS: ASPIRIN (EC) 81 MG TAB PO SCH (18:12)
[2019-07-25 20:00] VITALS: BP 170/71; PULSE 71; RESP 20
[2019-07-25] MEDS: ATORVASTATIN 40 MG TAB PO SCH (20:52)
[2019-07-25] MEDS: ZOLPIDEM 5 MG TAB PO PRN (21:45)
[2019-07-26] VITALS (8 sets, daily range): BP systolic 131–174; BP diastolic 66–84; PULSE 64–76; RESP 18–20
[2019-07-26] MEDS: GABAPENTIN 400 MG CAP PO SCH ×3 (06:41→21:00)
[2019-07-26] MEDS: PANTOPRAZOLE (EC) 40 MG TAB PO SCH (06:41)
[2019-07-26] MEDS: LEVOTHYROXINE 150 MCG TAB PO SCH (06:41)
[2019-07-26] MEDS: ACCU-CHEK XX SCH ×4 (07:00→21:00)
[2019-07-26] MEDS: INSULIN ASPART [NOVOLOG] 3 ML PEN SC SCH ×4 (08:24→21:00)
[2019-07-26] MEDS: metFORMIN 500 MG TAB PO SCH ×2 (08:25→17:13)
[2019-07-26] MEDS: INSULIN GLARGINE [LANTus] (100 UNITS/ML) SYG SC SCH (08:25)
[2019-07-26] MEDS: AMLODIPINE 5 MG TAB PO SCH ×2 (08:26→21:00)
[2019-07-26] MEDS: ASPIRIN (EC) 81 MG TAB PO SCH (08:26)
[2019-07-26] MEDS: LISINOPRIL 20 MG TAB PO SCH ×2 (08:26→21:00)
[2019-07-26] MEDS ORDERED: TICAGRELOR 90 MG TABLET PO SCH (17:30)
[2019-07-26] MEDS: ATORVASTATIN 40 MG TAB PO SCH (21:00)
[2019-07-27] MEDS: ZOLPIDEM 5 MG TAB PO PRN (00:47)
[2019-07-27 03:36] VITALS: BP 145/75; PULSE 83; RESP 18
[2019-07-27] MEDS: LEVOTHYROXINE 150 MCG TAB PO SCH (06:35)
[2019-07-27] MEDS: PANTOPRAZOLE (EC) 40 MG TAB PO SCH (06:35)
[2019-07-27] MEDS: GABAPENTIN 400 MG CAP PO SCH ×2 (06:37→14:09)
[2019-07-27] MEDS: ACCU-CHEK XX SCH ×2 (07:00→11:30)
[2019-07-27 07:54] VITALS: BP 128/68; PULSE 61; RESP 20
[2019-07-27] MEDS: ASPIRIN (EC) 81 MG TAB PO SCH (08:15)
[2019-07-27] MEDS: metFORMIN 500 MG TAB PO SCH (08:16)
[2019-07-27] MEDS: INSULIN GLARGINE [LANTus] (100 UNITS/ML) SYG SC SCH (08:18)
[2019-07-27] MEDS: INSULIN ASPART [NOVOLOG] 3 ML PEN SC SCH ×2 (08:18→12:04)
[2019-07-27] MEDS: LISINOPRIL 20 MG TAB PO SCH (08:19)
[2019-07-27] MEDS: AMLODIPINE 5 MG TAB PO SCH (08:19)
[2019-07-27] MEDS ORDERED: TICAGRELOR 90 MG TABLET PO SCH (09:00)
[2019-07-27 11:42] VITALS: BP 134/75; PULSE 80; RESP 20
[2019-07-27 15:07] VITALS: BP 128/74; PULSE 84; RESP 20
== END 2019-07-27 16:50 | DRG 65 ==
LOC: E/R 17:30 → 6WM 18:17
PROVIDERS: ADMIT Internal Medicine; ATTEND Internal Medicine
DX: I63.113 Cerebral infarction due to embolism of bilateral vertebral arteries (principal); G81.91 Hemiplegia, unspecified affecting right dominant side; E11.42 Type 2 diabetes mellitus with diabetic polyneuropathy; D64.9 Anemia, unspecified; G31.84 Mild cognitive impairment of uncertain or unknown etiology; I25.10 Atherosclerotic heart disease of native coronary artery without angina pectoris; E03.9 Hypothyroidism, unspecified; K21.9 Gastro-esophageal reflux disease without esophagitis; E78.5 Hyperlipidemia, unspecified; N40.0 Benign prostatic hyperplasia without lower urinary tract symptoms; R27.8 Other lack of coordination; Z79.4 Long term (current) use of insulin; Z79.82 Long term (current) use of aspirin; Z95.5 Presence of coronary angioplasty implant and graft; Z91.81 History of falling
CPT/HCPCS: 36415; 70450; 70496; 70498; 70552; 71045; 80048; 80053; 80061; 80307; 81003; 82962; 83036; 84443; 84484; 85025; 85610; 85730; 86592; 93005; 93308; 97110; 97116; 97162; 97530; J1815; J2060; Q9967